=== PATIENT | male | born 1945 | race Caucasian/White ===

== ENCOUNTER 2020-02-08 15:42 | Outpatient (CLI) | payer OTHER, SELFPAY ==
--- NOTE | 2020-02-08 16:29 | USCV_ITS ---
Israel Shaw Age: 75 Gender: M : 1945 Exam Date: 02/08/2020 16:04 Ordering Phys: Cesar Urbina MD Technologist: Shannon Geiger [place] [facility] [place]: CHEST PAIN BP: / HR: 45 Rhythm: Sinus Technical Quality: Adequate MEASUREMENTS (Male / Female) Normal Values 2D ECHO LV Diastolic Diameter PLAX 4.7 cm 4.2 - 5.9 / 3.9 - 5.3 cm LV Systolic Diameter PLAX 4.7 cm LV Chamber Size 3.9 cm IVS Diastolic Thickness 1.2 cm 0.6 - 1.0 / 0.6 - 0.9 cm IVS Systolic Thickness 1.6 cm LVPW Diastolic Thickness 1.1 cm 0.6 - 1.0 / 0.6 - 0.9 cm LVPW Systolic Thickness 1.5 cm RV Chamber Size 3.3 cm LVOT Diameter 2.0 cm LV Ejection Fraction 2D Teich 10.9 % LV Ejection Fraction MOD 2C 50.4 % LV Ejection Fraction 2C AL 54.9 % LA Diameter 5.5 cm LA Width 4.1 cm LA Height 5.9 cm RA Width 3.9 cm RA Height 4.7 cm Aorta at Sinotubular Diameter 3.1 cm M-MODE LV Diastolic Diameter MM 5.5 cm 4.2 - 5.9 / 3.9 - 5.3 cm LV Systolic Diameter MM 4.6 cm LV Ejection Fraction MM Teich 35.3 % IVS Diastolic Thickness MM 0.9 cm 0.6 - 1.0 / 0.6 - 0.9 cm IVS Systolic Thickness MM 1.3 cm LVPW Diastolic Thickness MM 1.3 cm 0.6 - 1.0 / 0.6 - 0.9 cm LVPW Systolic Thickness MM 1.9 cm RV Diastolic Diameter MM 1.3 cm Aortic Annulus Diameter 3.2 cm LA Ao Ratio MM 1.6 MV E Point Septal Separation 2.4 cm DOPPLER AV Peak Velocity 146.0 cm/s LVOT Peak Velocity 74.0 cm/s AV Area Cont Eq vti 2.0 cm squared AV Area Cont Eq pk 1.7 cm squared MV Area PHT 7.1 cm squared Mitral E to A Ratio 1.8 MV E' Velocity 47.0 cm/s Mitral E to MV E' Ratio 11.1 Mitral E to LV E' Lateral Ratio 10.6 Mitral E to LV E' Septal Ratio 11.7 TR Peak Velocity 243.6 cm/s TR Peak Gradient 23.7 mmHg TR Mean Velocity 173.5 cm/s TR Mean Gradient 14.9 mmHg TR Velocity Time Integral 57.6 cm TV Peak E Velocity 91.0 cm/s Right Atrial Pressure 3.0 mmHg Pulmonary Artery Systolic Pressu 26.7 mmHg PV Peak Velocity 54.0 cm/s RV Acceleration Time 0.1 s RV Ejection Time 0.3 s RV AcT/ET 0.2 FINDINGS Left Ventricle Diffuse hypokinesia left ventricle ejection fraction of around 35%. LV cavity appears to be mildly dilated. Right Ventricle Normal right ventricular size and systolic function. Right Atrium The right atrium is normal in size. Left Atrium Moderately increased left atrial size. Mitral Valve Possibly severe eccentric mitral regurgitation, with a regurgitant jet encircling the left atrium. Moderate prolapse of the anterior mitral leaflet Aortic Valve Structurally normal aortic valve without significant sclerosis or stenosis. There is no aortic regurgitation. Tricuspid Valve Trace tricuspid valve regurgitation. Pulmonic Valve Pulmonic valve not well visualized. Pericardium Normal pericardium without effusion. Aorta Normal ascending aorta dimension. CONCLUSIONS Diffuse hypokinesia left ventricle ejection fraction of around 35%. LV cavity appears to be mildly dilated. Possibly severe eccentric mitral regurgitation, with a regurgitant jet encircling the left atrium. Moderate prolapse of the anterior mitral leaflet. Moderately dilated left atrium Trace tricuspid valve regurgitation. There is no pericardial effusion. There are no intracardiac masses. No previous study is available for comparison. Dr Cesar Urbina MD FAC (Electronically Signed) Final Date: 08 February 2020 21:21 S
== END 2020-02-08 15:43 | disposition home or self-care (01) ==
PROVIDERS: PCP Emergency Medicine Emergency Medical Services; Visit Provider Internal Medicine Cardiovascular Disease
DX: I25.5 Ischemic cardiomyopathy (principal); R07.89 Other chest pain; I08.1 Rheumatic disorders of both mitral and tricuspid valves
CPT/HCPCS: 93306

== ENCOUNTER 2020-03-17 06:38 | Day surgery (SDC) | payer OTHER, SELFPAY ==
--- NOTE | 2020-03-17 07:10 | USCV_ITS ---
Israel Shaw Age: 75 Gender: M : 1945 Exam Date: 03/17/2020 09:33 Ordering Phys: Cesar Urbina MD ([email or web address]) Technologist: Shannon Geiger [place] [facility] [place]: MR BP: 142 / 84 HR: 94 Rhythm: Sinus Technical Quality: Excellent MEASUREMENTS (Male / Female) Normal Values 2D ECHO LVOT Diameter 2.0 cm DOPPLER LVOT Peak Velocity 89.0 cm/s MV Peak Velocity 101.0 cm/s MV Area PHT 5.1 cm squared Mitral E to A Ratio 3.2 MV E' Velocity 101.0 cm/s Medications IV propofol by the anesthesia service Complications None Proc. Components The patient was brought to the VALERIE examination room in a fasting state after obtaining an informed consent. The VALERIE probe was passed into the posterior pharynx , mid-esophagus, distal esophagus, and gastric fundus. The patient tolerated the procedure well and there were no complications. FINDINGS Left Ventricle The left ventricle appears to be mildly dilated. Moderate diffuse hypokinesia of the left ventricle. Right Ventricle Normal right ventricular size and systolic function. Right Atrium No right atrial mass or thrombus visualized. Normal right atrial size. Left Atrium Moderately increased left atrial size. No left atrial mass or thrombus visualized. The pulmonary vein Doppler examination revealed blunting of the systolic flow with some reversal of flow in the LV diastole LA Appendage Appears of normal size and contractility. No intracavitary masses or thrombi noted. IA Septum Appears to be intact. There is no evidence of any patent foramen ovale, based on the color flow Doppler examination or by saline contrast injection Mitral Valve Moderate prolapse of the P2 scallop was noted. Severe mitral regurgitation was noted with a slightly eccentric jet. There was reversal of flow noted in the pulmonic vein The stroke-volume at the level of the mitral valve was 144 mL. Stroke-volume at the level of the LV outflow tract was 43.6 mL. The regurgitant volume was 100 mL Aortic Valve Trileaflet aortic valve with a trace of aortic regurgitation Tricuspid Valve Trace of tricuspid regurgitation Pulmonic Valve No gross abnormality noted . Pericardium No pericardial effusion Aorta Aortic root was of normal size. Mild diffuse plaques are noted in the ascending, arch and descending aorta CONCLUSIONS 1. Features of severe mitral regurgitation with moderate prolapse of the P2 scallop. Mitral annular dilatation. Mitral regurgitant volume of 100 mL 2. Diffuse hypokinesia of the left ventricular ejection fraction around 35-40%. Mildly dilated LV cavity. No intracavitary masses. 3. Moderately dilated left atrium measuring 5.7 x 6.7 cm 4. Trace of aortic and tricuspid regurgitation. 5. No intracardiac masses. 6. No intracardiac shunts. Dr Cesar Urbina MD FAC (Electronically Signed) Final Date: 18 March 2020 11:49 S
[2020-03-17 07:25] VITALS: BP 142/84; PULSE 91; RESP 18; TEMP 36.1; O2SAT 95
[2020-03-17] MEDS: sodium chloride 0.9% 1,000 ML 30 ML IV (08:14)
--- NOTE | 2020-03-17 08:26 | P.ANESASSM_ITS ---
Pre-Anesthetic Assessment Pre-Anesthetic Assessment: Height/Weight: Height 1.78 m Weight 90.718 kg Temp Pulse Resp BP Pulse Ox 97 F L 91 18 142/84 95 03/17/20 07:25 03/17/20 07:25 03/17/20 07:25 03/17/20 07:25 03/17/20 07:25 Proposed Procedure: Operation Date: 03/17/20 08:00 Proposed Procedures p VALERIE 54775 I25.5 I25.10 Z86.79 I35.0(Not Applicable) - Cesar Urbina MD Was Beta Bryson taken within 24 hours: Yes Last intake: Intake Last Liquid Date 03/16/20 Last Liquid Time 05:00 Last Solid Date 03/16/20 Last Solid Time 21:00 Social: Social History: No alcohol and No tobacco Exam: Pre-Anes Outpt Exam: alert, oriented x 3 and clear to auscultation bilaterally Additional Exam Findings (including area of procedure): irregular Airway: Submandibular: WNL Cervical ROM: WNL MP: 2 Dentition: False Pulmonary: Pulmonary: None reported CV/HEM: CV/HEM: Angina (Stable), CAD and CHF Comments: EF 35%, severe MR : : None reported Hepatic: Hepatic: None reported GI: GI: None reported Metabolic: Metabolic: None reported Musc/skel: Musc/skel: None reported Neuropsych: Neuropsych: None reported Anesthetic Plan: ASA status: 3 Anesthesia: MAC Risk of > 500 ml blood loss (7ml/kg in children): No Meds/Allergies Current Medications: Current Medications Generic Name Dose Route Start Last Admin Trade Name Freq PRN Reason Stop Dose Admin Sodium Chloride 1,000 mls @ 30 ml s/hr 03/17/20 08:00 03/17/20 08:14 Sodium Chloride 0.9% IV 03/18/20 07:59 30 mls/hr .Q24H LIZZ Administration PFSH Anesthesia PFSH: Medical History Atherosclerotic heart disease of [place] coronary artery without angina pectoris History of hypertension History of hypothyroidism Hx of chest pain Hx of congestive heart failure Hx of coronary atherosclerosis Hx of heart failure Hx of hyperlipidemia Ischemic cardiomyopathy An EKG was done today which revealed a sinus rhythm with recurrent PVCs. Possible left atrial enlargement. Poor R wave progression. Some nonspecific T wave changes in the high lateral leads. Data Anesthesia Cardiac Studies: No Data to Display
--- NOTE | 2020-03-17 08:46 | P.HP_ITS ---
Providers/Chief Complaint Admitting Physician: Dr. JANE Urbina Primary Care Provider: Hari Cuellar DO Chief Complaint: karina History of Present Illness Israel Shaw is a 75 year old male who is known to have coronary artery disease and had coronary artery bypass surgery. He presents with increasing shortness of breath. He had an echocardiogram done which revealed possibly s evere mitral regurgitation. The study was a suboptimal quality. To better evaluate the mitral valve and the regurgitation, a transesophageal echocardiogram was recommended. This patient also has a history of congestive heart failure, essential benign hypertension, hypothyroidism and dyslipidemia Review of Systems Narrative: CONSTITUTIONAL: No fever or chills. EYES: No blurring of vision or other visual disturbances lately. ENT: No hoarseness of voice, auditory disturbances or sore throat. CARDIOVASCULAR: Exertional dyspnea RESPIRATORY: No significant cough. GASTROINTESTINAL: No hematemesis or melena. GENITOURINARY: No dysuria or hematuria. INTEGUMENTARY: No skin rashes or history of skin cancer. NEURO: No transient ischemic attacks or amaurosis. PSYCHIATRIC: No history of psychosis or major depression. HEMATOLOGIC: No bleeding disorders or significant anemia. ENDOCRINE: Hypothyroidism as mentioned above MUSCULOSKELETAL: No recent joint pain or swelling. ALLERGY/IMMUNOLOGY: As mentioned above. Medications/Allergies Home Medications Medication Instructions Recorded Confirmed Last Taken Type acetaminophen 500 mg tablet 500 mg PO Q6H PRN 02/08/20 03/17/20 03/16/20 History carvedilol 6.25 mg tablet 6.25 mg PO BID 02/08/20 03/17/20 03/16/20 History clopidogrel 75 mg tablet 75 mg PO DAILY 02/08/20 03/17/20 03/16/20 History cyclobenzaprine 10 mg tablet 10 mg PO TID 02/08/20 03/17/20 03/16/20 History ezetimibe 10 mg tablet 10 mg PO DAILY 90 Days #90 tab 02/08/20 03/17/20 03/16/20 Rx gabapentin 100 mg capsule 100 mg PO TID 02/08/20 03/17/20 03/16/20 History hydroxyzine HCl 10 mg tablet 10 mg PO TID PRN 02/08/20 03/17/20 03/16/20 History levothyroxine 75 mcg tablet 75 mcg PO DAILY 02/08/20 03/17/20 03/16/20 History melatonin 3 mg capsule 3 mg PO DAILY 02/08/20 03/17/20 03/16/20 History naproxen sodium 220 mg capsule 220 mg PO BID PRN 02/08/20 03/17/20 03/16/20 History rosuvastatin 40 mg tablet 40 mg PO DAILY 02/08/20 03/17/20 03/16/20 History sacubitril 49 mg-valsartan 51 mg 1 tab PO BID 30 Days #60 tab 02/08/20 03/17/20 03/16/20 Rx tablet nitroglycerin 0.4 mg sublingual 0.4 mg SUBLINGUAL Q5M PRN #50 tab 02/09/20 03/17/20 Unknown Rx tablet Allergies Allergy/AdvReac Type Severity Reaction Status Date / Time No Known Allergies Allergy Verified 02/08/20 14:14 PFSH Acute PFSH: Medical History Atherosclerotic heart disease of [place] coronary artery without angina pectoris History of hypertension History of hypothyroidism Hx of chest pain Hx of congestive heart failure Hx of coronary atherosclerosis Hx of heart failure Hx of hyperlipidemia Ischemic cardiomyopathy An EKG was done today which revealed a sinus rhythm with recurrent PVCs. Possible left atrial enlargement. Poor R wave progression. Some nonspecific T wave changes in the high lateral leads. Vitals/I&O/Wt Last Vital Signs Temp 97 F L 03/17/20 07:25 Pulse 91 03/17/20 07:25 Resp 18 03/17/20 07:25 BP 142/84 03/17/20 07:25 Pulse Ox 95 03/17/20 07:25 Weight last 48 hrs Weight 200 lb Physical Exam Narrative: EXAM NARRATIVE: GENERAL: The patient is alert and oriented times three. Not in any acute distress. HEENT: No significant pallor, icterus or lymphadenopathy.Oral cavity: There are no mucous membrane lesions. NECK: Trachea appears to be central. No masses noted. No JVD or thyromegaly appreciated. RESPIRATORY: Chest is symmetrical. No intercostals muscle retraction or any accessory muscle activation. There is no chest wall tenderness. Breath sounds are heard bilaterally. No rales or rhonchi heard. No evidence of any consolidation. BREASTS: Deferred. HEART: The heart sounds are normal. No S3 or S4. Systolic murmur in the mitral area of grade 3/6.. No pericardial rub ABDOMEN: No vessel pulsations or distention. No tenderness. No organomegaly appreciated. Bowel sounds are normally heard. : Deferred. RECTAL: Deferred. LYMPHATIC: No lymphadenopathy noted in the neck or groin. EXTREMITIES: Trace edema with no cyanosis MUSCULOSKELETAL: No acute joint deformities or swelling SKIN: There are no significant rashes or ecchymosis NEUROPSYCHIATRIC: The patient is alert and oriented x3. Appears to be in a good mood. No tremors or rigidity noted. Data Other Labs: Echocardiogram done on 02/08/2020 Diffuse hypokinesia left ventricle ejection fraction of around 35%. LV cavity appears to be mildly dilated. Possibly severe eccentric mitral regurgitation, with a regurgitant jet encircling the left atrium. Moderate prolapse of the anterior mitral leaflet. Moderately dilated left atrium Trace tricuspid valve regurgitation. There is no pericardial effusion. There are no intracardiac masses. No previous study is available for comparison. A&P Assessment and plan (1) Mitral regurgitation: Patient was found to have possibly severe mitral regurgitation by transthoracic echocardiogram. To better evaluate the mitral valve pathology and the mitral regurgitation, a transesophageal echocardiogram was recommended. The risk of aspiration, bleeding, soft tissue injury, perforation of the stomach/esophagus and other concomitant complications were explained to the patient in detail. The patient understood this well and consented to proceed. Status: Acute Qualifiers: Cardiac valve disease etiology: nonrheumatic Qualified Code(s): I34.0 - Nonrheumatic mitral (valve) insufficiency (2) Ischemic cardiomyopathy: Since the patient has no evidence of any cardiac decompensation, may continue on the current medications. Status: Acute (3) Atherosclerotic heart disease of [place] coronary artery without angina pectoris: Patient has no specific symptoms of coronary ischemia at this time. Overall status is stable. Status: Acute Qualifiers: [place] vs. transplanted heart: [place] heart Qualified Code(s): I25.10 - Atherosclerotic heart disease of [place] coronary artery without angina pectoris (4) Hx of congestive heart failure: Currently he has a class II heart failure symptoms. No evidence of decompensation. Status: Acute Additional A&P Information Based on the KARINA findings, further recommendations will be made. 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 transplanted heart: [place] heart Hx of congestive heart failure Z86.79
--- NOTE | 2020-03-17 09:29 | W.PM.OPSUD ---
Surgery/Procedure H&P Update DATE OF PROCEDURE: March 17, 2020 DATE H&P PERFORMED: 03/17/20 H&P UPDATE INFORMATION: I have reviewed H&P completed within last 30 days and I have examined patient prior to procedure PREOP DIAGNOSIS: Possibly severe mitral regurgitation/ASHD/cardiomyopathy PRIMARY INDICATION FOR PROCEDURE: Mitral valve regurgitation PLANNED PROCEDURE: Operation Date: 03/17/20 08:00 Proposed Procedures p VALERIE 24511 I25.5 I25.10 Z86.79 I35.0(Not Applicable) - Cesar Urbina MD
[2020-03-17 10:21] VITALS: BP 120/78; PULSE 95; RESP 18; TEMP 36.4; O2SAT 97
[2020-03-17 10:37] VITALS: BP 144/82; PULSE 89; RESP 16; O2SAT 95
--- NOTE | 2020-03-17 12:46 | ANE.PACU2 ---
Inpatient post-anesthesia follow up: Airway intact: Yes Vital signs: Temperature 97.6 F Pulse Rate 89 Respiratory Rate 16 Blood Pressure 144/82 Pulse Oximetry 95 Oxygen Delivery Me thod Room Air Oxygen Flow Rate Fraction of Inspir ed Oxygen Hydration adequate: Yes Nausea and vomiting: No Pain level: 1 Mental status: Baseline
== END 2020-03-17 10:49 | disposition home or self-care (01) ==
PROVIDERS: PCP Emergency Medicine Emergency Medical Services; Visit Provider Internal Medicine Cardiovascular Disease
PROC: (CPT 93312; principal; 2020-03-17 08:00)
DX: I34.0 Nonrheumatic mitral (valve) insufficiency (principal); I25.5 Ischemic cardiomyopathy; I25.10 Atherosclerotic heart disease of native coronary artery without angina pectoris; Z86.79 Personal history of other diseases of the circulatory system; Z95.1 Presence of aortocoronary bypass graft; E03.9 Hypothyroidism, unspecified; I10 Essential (primary) hypertension; E78.5 Hyperlipidemia, unspecified
CPT/HCPCS: 12345; 93312; 93320; 93325; J7030

== ENCOUNTER 2020-04-26 07:52 | Outpatient (CLI) | payer OTHER, SELFPAY ==
--- NOTE | 2020-04-26 07:58 | NMCV_ITS ---
NM card bld pool r or s*[id number] Israel Shaw Age: 75 Gender: M : 1945 Exam Date: 04/26/2020 07:58 Ordering Phys: Cesar Urbina MD ([email or web address]) Technologist: LEXI Moreno Exam Location: [facility] Indications: ISCHEMIC CARDIOMYOPATHY Camera Used: [employer] Imaging Protocol: three view gated blood pool study Technical Image Quality: Good Dose: Admin Site: Administered By: Tc-99m Tagged RBCs: 24.7 IV - Right LEXI Moreno Antecubital PYP: EJECTION FRACTION: Automatic LV EF: 46 Rest RV EF: Manual LV EF: FINDINGS Diffuse hypokinesia of the LV apex and the septum CONCLUSIONS 1. LV ejection fraction estimated to be 46% 2. Segmental wall motion analysis revealed diffuse hypokinesia of the LV apex and septum. No previous studies are available for comparison Dr Cesar Urbina MD FAC (Electronically Signed) Final Date: 26 April 2020 10:43 S
== END 2020-04-26 07:53 | disposition home or self-care (01) ==
LOC: NM 07:53
PROVIDERS: PCP Emergency Medicine Emergency Medical Services; Visit Provider Internal Medicine Cardiovascular Disease
DX: I25.5 Ischemic cardiomyopathy (principal)
CPT/HCPCS: 78472; A9560

== ENCOUNTER 2020-06-05 06:58 | Outpatient (CLI) | payer OTHER, SELFPAY ==
--- NOTE | 2020-06-05 06:59 | NMCV_ITS ---
NM rosana perf SPECT r/s* [id number] Israel Shaw Age: 75 Gender: M : 1945 Exam Date: 06/05/2020 08:10 Ordering Phys: Cesar Urbina MD ([email or web address]) Technologist: LEXI Moreno Exam Location: [facility] Indications: ISCHEMIC CARDIOMYOPATHY STRESS TEST Please see separate stress test report in [facility] for full findings IMAGE PROTOCOL Rest/Stress 1 Lexiscan Day Radiopharmaceutical Dose (mCi) Administration Site Administered by Rest: Tc-99m 10.8 IV LEXI Archuleta Sestamibi Stress:Tc-99m 32.6 IV LEXI Archuleta Sestamibi Rest: 05-Jun-2020 60 Discovery 630 Stress: 05-Jun-2020 30 Discovery 630 0.4mg Lexiscan. Images obtained in supine and prone position. SPECT RESULTS Technical Quality: Excellent Raw Data Analysis: Normal Image Corrections: No attenuation or motion correction applied Summed Stress Score: 21 Summed Rest Score: 17 Summed Difference Score: 6 PERFUSION FINDINGS Large areas of severely decreases uptake in the inferior, inferolateral, anterolateral and apical regions. Some reversibility was noted in the anterolateral, apical anterior, apical lateral and LV apex. FUNCTIONAL RESULTS (calculated via Gated SPECT) Stress Image LV EF (%): 39 Stress EDV (mL):212 TID: 1.14 Stress ESV (mL):130 FUNCTIONAL FINDINGS: Segmental wall motion analysis revealed diffuse hypokinesia of the left ventricle. IMPRESSIONS 1. Myocardial perfusion imaging revealing large areas of persistent decreased tracer uptake in the inferior, inferolateral, anterolateral and apical regions with some reversibility in the anterolateral and apical regions, suggestive of myocardial scarring in the distribution of all the 3 coronary arteries with some abelino-infarction ischemia mostly in the distribution of the left circumflex artery. 2. Diminished LV ejection fraction 39%. 3. Wall motion abnormalities mentioned above. 4. Dilated LV cavity with an end-systolic volume of 130 mL 5. Elevated transient ischemic dilatation ratio may suggest endocardial ischemia( TID of 1.14) No similar previous studies are available for comparison Dr Cesar Urbina MD FACC (Electronically Signed) Final Date: 05 June 2020 15:19 S
--- NOTE | 2020-06-05 06:59 | ECG_ITS ---
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 Interpretive Statements NAME OF STUDY: LEXISCAN SESTAMIBI STRESS TEST INDICATION: Shortness of Breath, PROCEDURE: At the baseline, the EKG revealed normal sinus rhythm with frequent PVCs in the form of bigeminy. Borderline first-degree AV block. Poor R wave progression. Nonspecific T wave changes in the inferolateral leads. The baseline blood pressure was 149/87 mm Hg with a heart rate of 83 beats/min. Lexiscan was infused over a period of 20 seconds. A total of 0.4 milligrams of Lexiscan was infused. The stress phase was continued for a total of 5 minutes. Heart rate at the end of the stress phase was 88 with a blood pressure 125/70. The EKG at the peak infusion revealed no significant changes. Sestamibi was injected 20 seconds after the Lexiscan infusion. Blood pressure at the end of the recovery phase was 129/82 with a heart rate of 88 per minute. CONCLUSION: 1. No significant EKG changes with the LexiScan infusion 2. No LexiScan induced chest pain or cardiac arrhythmia 3. Normal blood pressure and heart rate response 4. Sestamibi/sestamibi perfusion scan pending; see separate report. Electronically Signed On 06-08-2020 8:25:58 CDT by Cesar Urbina M.D. [id number]
[2020-06-05 07:09] VITALS: BMI 29.7
[2020-06-05] MEDS: regadenoson 0.4 Mg/5 ml Syringe IVP (09:17)
[2020-06-05 09:42] VITALS: BP 129/82; PULSE 88
== END 2020-06-05 06:59 | disposition home or self-care (01) ==
LOC: CDL 06:58
PROVIDERS: PCP Emergency Medicine Emergency Medical Services; Visit Provider Internal Medicine Cardiovascular Disease
DX: R06.02 Shortness of breath (principal); I25.5 Ischemic cardiomyopathy
CPT/HCPCS: 78452; 93017; A9500; J2785

== ENCOUNTER 2020-10-26 16:27 | Outpatient (CLI) | payer OTHER, SELFPAY ==
[2020-10-26 16:57] LABS: Basophils % 0.3 %; Eosinophils # 0.1 10^3/uL (0.0-0.8); Eosinophils % 0.9 %; Hematocrit 48.9 % (42.0-52.0); Hemoglobin 16.7 g/dL (11.7-16.6); Lymphocytes # 1.5 10^3/uL (0.8-4.8); Lymphocytes % 22.6 %; Mean Corpuscular HGB Conc 34.2 g/dL (30.0-36.0); Mean Corpuscular Hemoglobin 31.3 pg (28.0-34.0); Mean Corpuscular Volume 91.6 fl (80-94); Mean Platelet Volume 8.8 fL (7.4-10.4); Monocytes # 0.7 10^3/uL (0.2-0.9); Neutrophils # 4.48 10^3/uL (1.8-7.7); Neutrophils % 65.9 %; Nucleated Red Blood Cells % 0 %; Platelet Count 231 10^3/cmm (130-400); Red Blood Count 5.34 10^6/uL (4.1-5.3); Red Cell Distribution Width 12.6 % (12.1-15.1); White Blood Count 6.8 10^3/uL (4.0-10.0)
[2020-10-26 17:20] LABS: Alanine Aminotransferase 30 U/L (0-41); Albumin Level 4.4 g/dL (3.5-5.2); Alkaline Phosphatase 83 IU/L (40-130); Anion Gap 15.2 (5-19); Aspartate Amino Transferase 20 U/L (0-40); Blood Urea Nitrogen 10 mg/dL (8-23); Calcium 9.4 mg/dL (8.5-10.5); Carbon Dioxide 25 mmol/L (22-29); Chloride 102 mmol/L (98-107); Globulin 3.3 g/dL (1.3-4.6); Glucose 92 mg/dL (65-115); Osmolality Calculated 285 mOsm/kg (285-295); Potassium 4.2 mmol/L (3.5-5.1); Sodium 138 mmol/L (136-145); Total Bilirubin 0.5 mg/dL (0.15-1.2); Total Protein 7.7 g/dL (6.6-8.7)
[2020-10-26 17:45] LABS: Hepatitis A Antibody IgM Non-Reactive (Nonreactive); Hepatitis B Core AB, Total Reactive (Nonreactive); Hepatitis B Surface AB 3.5 (11.5-1000); Hepatitis B Surface Antigen Non-Reactive (Nonreactive); Hepatitis C Virus Antibody Non-Reactive (Nonreactive)
[2020-10-26 20:19] LABS: HIV 1 & 2 Antibody Non-Reactive (Non-Reactiv); HIV 1 & 2 Antigen Non-Reactive (Non-Reactiv)
[2020-10-28 15:38] LABS: Quantiferon Mitogen 7.85 IU/mL; Quantiferon Nil 0.01 IU/mL; Quantiferon Plus TB1 0.01 IU/mL; Quantiferon Plus TB2 0.01 IU/mL; Quantiferon TB Gold NEGATIVE (NEGATIVE)
== END 2020-10-26 16:28 | disposition home or self-care (01) ==
LOC: LAB 16:32
PROVIDERS: PCP Emergency Medicine Emergency Medical Services; Visit Provider Dermatology
DX: L40.0 Psoriasis vulgaris (principal); L40.50 Arthropathic psoriasis, unspecified
CPT/HCPCS: 36415; 80053; 85025; 86480; 86705; 86706; 86709; 86803; 87340; 87806

== ENCOUNTER → 2020-12-20 10:43 | Outpatient (BNVA) | payer OTHER, SELFPAY | PROVIDERS: PCP Emergency Medicine Emergency Medical Services; Visit Provider Internal Medicine Cardiovascular Disease | DX: I50.33 Acute on chronic diastolic (congestive) heart failure (principal); Z86.79 Personal history of other diseases of the circulatory system; E78.5 Hyperlipidemia, unspecified; R06.02 Shortness of breath | CPT/HCPCS: 80048; 80061; 83880 ==

== ENCOUNTER 2021-03-07 05:58 | Observation (INO) | payer OTHER, MEDICARE, SELFPAY ==
[2021-03-07] VITALS (13 sets, daily range): BP systolic 103–144; BP diastolic 60–67; PULSE 62–110; RESP 17–28; TEMP 36.6–37.5; O2SAT 91–98; BMI 30.1; BMI 30.4
--- NOTE | 2021-03-07 06:37 | XRR_ITS ---
PROCEDURE INFORMATION: Exam: XR Chest Exam date and time: 03/07/2021 6:37 AM Age: 76 years old Clinical indication: Dyspnea; Prior surgery; Surgery date: 6+ months; Surgery type: Open heart x 2; Patient HX: SOB chest pain this am; Additional info: Cp TECHNIQUE: Imaging protocol: XR of the chest. Views: 1 view. COMPARISON: No relevant prior studies available. FINDINGS: Lungs: Emphysematous change, interstitial prominence, and left basilar airspace disease. Pleural spaces: No significant pleural effusion. Heart/Mediastinum: No cardiomegaly. Bones/joints: Degenerative change. Median sternotomy. XR/XR chest 1V portable [id number] IMPRESSION: Emphysematous change, interstitial prominence, and left basilar airspace disease.
--- NOTE | 2021-03-07 06:37 | ECG_ITS ---
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 Measurements Intervals [place] Rate: 100 P: 57 AK: 251 QRS: -15 QRSD: 110 T: 124 QT: 329 QTc: 424 Interpretive Statements SINUS TACHYCARDIA WITH FIRST DEGREE AV BLOCK WITH OCCASIONAL VENTRICULAR PREMATURE COMPLEXES ANTEROSEPTAL MYOCARDIAL INFARCTION , OF INDETERMINATE AGE [40+ ms Q WAVE IN V1-V4] No previous ECG available for comparison Electronically Signed On 03-08-2021 20:37:22 TUBING TESTER by Irasema Rosales M.D. [id number]
--- NOTE | 2021-03-07 06:42 | ED_ITS ---
HPI - Chest Pain General: Chief Complaint: Chest Pain Stated Complaint: Chest pains Time Seen by Provider: 03/07/21 06:35 History of Present Illness: HPI narrative: 76-year-old male with history of CAD presents with chest pain. States this started approximately 2:30 AM. States this feels similar to previous MIs. He has had previous stents in the past due to similar symptoms. Describes it as pressure does not radiate. Is not exertional or pleuritic. Denies lower extremity pain or swelling. Denies cough nausea or vomiting. Denies fevers or chills. States that he recently had an unremarkable stress test. States she took 3 nitroglycerin at home which relieved the pain but it promptly came back. Review of Systems Narrative: - CONSTITUTIONAL: Denies weight loss, fever and chills. - HEENT: Denies changes in vision and hearing. - RESPIRATORY: Endorses shortness of breath - CV: As above - GI: Denies abdominal pain, nausea, vomiting and diarrhea. - : Denies dysuria and urinary frequency. - MSK: Denies myalgia and joint pain. - SKIN: Denies rash and pruritus. - NEUROLOGICAL: Denies headache, weakness, numbness and syncope. - PSYCHIATRIC: Denies suicidal ideation PFSH ED PFSH: Medical History Atherosclerotic heart disease of [place] coronary artery without angina pectoris History of hypertension History of hypothyroidism Hx of chest pain Hx of congestive heart failure Hx of coronary atherosclerosis Hx of heart failure Hx of hyperlipidemia Ischemic cardiomyopathy An EKG was done today which revealed a sinus rhythm with recurrent PVCs. Possible left atrial enlargement. Poor R wave progression. Some nonspecific T wave changes in the high lateral leads. Psoriasis Surgical History History of open heart surgery Hx of appendectomy Family History Father CAD (coronary artery disease) Mother CAD (coronary artery disease) Grandmother CAD (coronary artery disease) Family/Other CAD (coronary artery disease) Brother CAD (coronary artery disease) Sister CAD (coronary artery disease) Denies family history of Diabetes Clotting disorder Dementia Chronic kidney disease (CKD) Suicide Anesthesia complication Bleeding disorder Lung disease Cancer Stroke Social History (Updated 03/07/21 @ 15:41 by Rohan Joseph MD) Smoking and tobacco status: former smoker Alcohol intake: former Physical Exam Narrative: EXAM NARRATIVE: - GENERAL: Alert and oriented x 3. No acute distress. Well-nourished. - EYES: EOMI. Anicteric. - HENT: Atraumatic, no C-spine tenderness. Moist mucous membranes. No scleral icterus. No cervical lymphadenopathy. - LUNGS: Clear to auscultation bilaterally. No accessory muscle use. Equal lung sounds bilaterally. No respiratory distress. - CARDIOVASCULAR: Regular rate and rhythm. No murmur. No JVD. - ABDOMEN: Soft, non-tender and non-distended. Negative CVA tenderness bilaterally, no rebound or guarding, negative Perez sign. No palpable masses. - EXTREMITIES: No edema. Non-tender. - SKIN: No rashes or lesions. Warm. - NEUROLOGIC: No meningismus or focal neurological deficits. CN II-XII grossly intact. - PSYCHIATRIC: Cooperative. Appropriate mood and affect. Course Vital Signs: Vital signs: Vital Signs Temperature 99.5 F 03/07/21 06:12 Pulse Rate 91 03/07/21 15:40 Respiratory Rate 18 03/07/21 15:40 Blood Pressure 135/66 03/07/21 15:40 Pulse Oximetry 98 03/07/21 15:40 MDM - Chest Pain MDM Narrative: Medical decision making narrative: 76-year-old male presents due to chest pain. EKG and troponins do not reveal any sign of acute ischemia or acute abnormality. CT scan does not reveal any sign of PE. However does have some consolidation and treatment with azithromycin Rocephin started. Otherwise he is hemodynamically stable afebrile nontoxic-appearing. Remainder of lab can unremarkable. Remainder of lab work and imaging reviewed. Discussed with hospitalist and they agreed patient would benefit from admission. Patient admitted in stable condition. Further evaluation management per hospitalist team. Lab Data: Labs: Lab Results 03/07/21 03/07/21 03/07/21 06:45 06:45 06:45 WBC 10.7 10^3/uL H 10 ^3/uL (4.0-10.0) RBC 4.86 10^6/uL 10^6 /uL (4.1-5.3) Hgb 15.4 g/dL g/dL (11.7-16.6) Hct 44.8 % % (42.0-52.0) MCV 92.2 fl fl (80-94) MCH 31.7 pg pg (28.0-34.0) MCHC 34.4 g/dL g/dL (30.0-36.0) RDW 12.2 % % (12.1-15.1) Plt Count 200 10^3/cmm 10^3 /cmm (130-400) MPV 9.0 fL fL (7.4-10.4) Neut % (Auto) 89.1 % % Lymph % (Auto) 4.1 % % [place] % (Auto) 5.7 % % Eos % (Auto) 0.2 % % Baso % (Auto) 0.3 % % Neut # (Auto) 9.53 10^3/uL H 10 ^3/uL (1.8-7.7) Lymph # (Auto) 0.4 10^3/uL L 10^ 3/uL (0.8-4.8) [place] # (Auto) 0.6 10^3/uL 10^3/ uL (0.2-0.9) Eos # (Auto) 0.0 10^3/uL 10^3/ uL (0.0-0.8) Baso # (Auto) 0.0 10^3/uL 10^3/ uL (0.0-0.1) Nucleated RBC % (a uto) 0 % % Nucleated RBCs # 0.0 /100WBC /100W BC PT 13.70 SECONDS SEC ONDS (12.1-14.9) INR 1.01 (0.8-1.2) APTT 24.1 SECONDS SECO NDS (23.9-36.7) D-Dimer 0.80 ug/mIFEU H u g/mIFEU (0-0.59) Sodium Cancelled Potassium Cancelled Chloride Cancelled Carbon Dioxide Cancelled Anion Gap Cancelled BUN Cancelled Creatinine Cancelled GFR Calculation Cancelled Glucose Cancelled Calculated Osmolal ity Cancelled Lactate Calcium Cancelled Total Bilirubin Cancelled AST Cancelled ALT Cancelled Alkaline Phosphata se Cancelled Troponin T Baselin e Troponin T 120 Min robinson Delta Troponin T Troponin T Hi Sens 6Hr Troponin T Hi Sens 6Hr Delta NT-Pro-B Natriuret Pep Cancelled Total Protein Cancelled Albumin Cancelled Globulin Cancelled Lipase Cancelled 03/07/21 03/07/21 03/07/21 06:45 07:35 07:35 WBC RBC Hgb Hct MCV MCH MCHC RDW Plt Count MPV Neut % (Auto) Lymph % (Auto) [place] % (Auto) Eos % (Auto) Baso % (Auto) Neut # (Auto) Lymph # (Auto) [place] # (Auto) Eos # (Auto) Baso # (Auto) Nucleated RBC % (a uto) Nucleated RBCs # PT INR APTT D-Dimer Sodium 136 mmol/L mmol/L (136-145) Potassium 4.5 mmol/L mmol/L (3.5-5.1) Chloride 102 mmol/L mmol/L (98-107) Carbon Dioxide 25 mmol/L mmol/L (22-29) Anion Gap 13.5 (5-19) BUN 12 mg/dL mg/dL (8-23) Creatinine 1.1 mg/dL mg/dL (0.7-1.2) GFR Calculation Not Reportable Glucose 114 mg/dL mg/dL (65-115) Calculated Osmolal ity 283 mOsm/kg L mOs m/kg (285-295) Lactate Calcium 9.7 mg/dL mg/dL (8.5-10.5) Total Bilirubin 0.6 mg/dL mg/dL (0.15-1.2) AST 22 U/L U/L (0-40) ALT 26 U/L U/L (0-41) Alkaline Phosphata se 63 IU/L IU/L (40-130) Troponin T Baselin e Cancelled 14 ng/L ng/L (0-15) Troponin T 120 Min robinson Delta Troponin T Troponin T Hi Sens 6Hr Troponin T Hi Sens 6Hr Delta NT-Pro-B Natriuret Pep 335 pg/mL H pg/mL (0-125) Total Protein 6.3 g/dL L g/dL (6.6-8.7) Albumin 4.2 g/dL g/dL (3.5-5.2) Globulin 2.1 g/dL g/dL (1.3-4.6) Lipase 16 U/L U/L (13-60) 03/07/21 03/07/21 03/07/21 08:42 12:47 13:22 WBC RBC Hgb Hct MCV MCH MCHC RDW Plt Count MPV Neut % (Auto) Lymph % (Auto) [place] % (Auto) Eos % (Auto) Baso % (Auto) Neut # (Auto) Lymph # (Auto) [place] # (Auto) Eos # (Auto) Baso # (Auto) Nucleated RBC % (a uto) Nucleated RBCs # PT INR APTT D-Dimer Sodium Potassium Chloride Carbon Dioxide Anion Gap BUN Creatinine GFR Calculation Glucose Calculated Osmolal ity Lactate 1.1 mmol/L mmol/L (0.5-2.2) Calcium Total Bilirubin AST ALT Alkaline Phosphata se Troponin T Baselin e Troponin T 120 Min robinson 13.41 ng/L ng/L (0-15) Delta Troponin T -0.59 ABS# L ABS# (0-10) Troponin T Hi Sens 6Hr 10.92 ng/L ng/L (0-15) Troponin T Hi Sens 6Hr Delta -3.08 ng/L L ng/L (0-12) NT-Pro-B Natriuret Pep Total Protein Albumin Globulin Lipase EKG Data^: EKG 1: Other EKG comments: Sinus tachycardia rate of 110, anterior Q waves are present. Inversion in 1 aVL. No sign of acute ischemia or other acute abnormality. Discharge Plan Discharge Prescriptions: No Action hydroxyzine HCl 10 mg tablet 10 mg PO TID PRN (Reason: Anxiety) RF: 0 acetaminophen [Tylenol Extra Strength] 500 mg tablet 1,000 mg PO QID PRN (Reason: Pain) RF: 0 carvedilol [Coreg] 6.25 mg tablet 6.25 mg PO BID RF: 0 clopidogrel [Plavix] 75 mg tablet 75 mg PO DAILY RF: 0 cyclobenzaprine 10 mg tablet 10 mg PO TID PRN (Reason: Muscle Spasm) RF: 0 gabapentin 100 mg capsule 100 mg PO TID RF: 0 melatonin 3 mg capsule 3 mg PO BEDTIME RF: 0 rosuvastatin 40 mg tablet 40 mg PO DAILY RF: 0 naproxen sodium [Aleve] 220 mg capsule 220 mg PO BID PRN (Reason: Pain) RF: 0 cholecalciferol (vitamin D3) [Vitamin D3] 50 mcg (2,000 unit) capsule 50 mcg PO QAM RF: 0 nitroglycerin [Nitrostat] 0.4 mg tablet, sublingual 0.4 mg sublingual Q5M PRN (Reason: chest pain) Qty: 50 RF: 2 Tremfya 100 mg/mL auto-injector 100 mg SUBCUT .q8 weeks Qty: 1 RF: 3 Entresto 97-103 mg tablet 1 tab PO BID Qty: 180 RF: 3 Aspir-81 81 mg Tablet,Delayed Release (Dr/Ec) 81 mg PO QAM RF: 0 Zetia 10 mg tablet 10 mg PO DAILY RF: 0 Coding Level of Care Code ED Nursing Program Manager for Karlosg Anurag
[2021-03-07] MEDS: aspirin 81 mg Chew Tablet 324 MG PO (06:59)
[2021-03-07 07:19] LABS: Basophils % 0.3 %; Eosinophils % 0.2 %; Hematocrit 44.8 % (42.0-52.0); Hemoglobin 15.4 g/dL (11.7-16.6); Lymphocytes # 0.4 10^3/uL (0.8-4.8); Lymphocytes % 4.1 %; Mean Corpuscular HGB Conc 34.4 g/dL (30.0-36.0); Mean Corpuscular Hemoglobin 31.7 pg (28.0-34.0); Mean Corpuscular Volume 92.2 fl (80-94); Monocytes # 0.6 10^3/uL (0.2-0.9); Monocytes % 5.7 %; Neutrophils # 9.53 10^3/uL (1.8-7.7); Neutrophils % 89.1 %; Nucleated Red Blood Cells % 0 %; Platelet Count 200 10^3/cmm (130-400); Red Blood Count 4.86 10^6/uL (4.1-5.3); Red Cell Distribution Width 12.2 % (12.1-15.1); White Blood Count 10.7 10^3/uL (4.0-10.0)
[2021-03-07 07:23] LABS: INR 1.01 (0.8-1.2)
[2021-03-07 07:24] LABS: Partial Thromboplastin Time 24.1 SECONDS (23.9-36.7)
[2021-03-07 08:08] LABS: Troponin(5th) Baseline 14 ng/L (0-15)
[2021-03-07 08:15] LABS: Alanine Aminotransferase 26 U/L (0-41); Albumin Level 4.2 g/dL (3.5-5.2); Alkaline Phosphatase 63 IU/L (40-130); Anion Gap 13.5 (5-19); Aspartate Amino Transferase 22 U/L (0-40); Blood Urea Nitrogen 12 mg/dL (8-23); Calcium 9.7 mg/dL (8.5-10.5); Carbon Dioxide 25 mmol/L (22-29); Chloride 102 mmol/L (98-107); Globulin 2.1 g/dL (1.3-4.6); Glucose 114 mg/dL (65-115); Lipase 16 U/L (13-60); NT Pro B Type Natriuretic Pept 335 pg/mL (0-125); Osmolality Calculated 283 mOsm/kg (285-295); Potassium 4.5 mmol/L (3.5-5.1); Sodium 136 mmol/L (136-145); Total Bilirubin 0.6 mg/dL (0.15-1.2); Total Protein 6.3 g/dL (6.6-8.7)
--- NOTE | 2021-03-07 08:37 | ECG_ITS ---
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 Measurements Intervals [place] Rate: 94 P: 52 [place]: 204 QRS: -10 QRSD: 101 T: 117 QT: 339 QTc: 425 Interpretive Statements SINUS RHYTHM WITH OCCASIONAL VENTRICULAR PREMATURE COMPLEXES ANTEROSEPTAL MYOCARDIAL INFARCTION , OF INDETERMINATE AGE [40+ ms Q WAVE IN V1-V4] Compared to ECG 03/07/2021 06:51:53 Sinus tachycardia no longer present First degree AV block no longer present Myocardial infarct finding still present Electronically Signed On 03-08-2021 22:05:22 SOFTWARE CONFIGURATION MANAGER by Irasema Rosales M.D. [id number]
--- NOTE | 2021-03-07 08:54 | PC.NURSE ---
PATIENT CHEST PAIN NOW 03/12. PROVIDER NOTIFIED. OKAYED TO NOT GIVE NITRO DRIP.
[2021-03-07 09:08] LABS: Troponin 5 2HR 13.41 ng/L (0-15)
[2021-03-07 09:14] LABS: Troponin 5 2HR Delta -0.59 ABS# (0-10)
--- NOTE | 2021-03-07 11:00 | CT_ITS ---
WS: [id number] CT CHEST ANGIOGRAPHY WITH REFORMATS HISTORY: pe TECHNIQUE: Contiguous axial images are obtained through the chest during arterial injection of intrav enous contrast. Images are reconstructed to evaluate the pulmonary arteries. MIP imaging also reviewe d. All CT scans at [facility] use at least one of these dose optimization techniques: automat ed exposure control; mA and/or kV adjustment per patient size (includes targeted exams where dose is matched to clinical indication); or iterative reconstruction. CONTRAST: Omnipaque 350; 68 mL IV. DLP: 603.66 mGy.cm COMPARISON: None available. Very good opacification of the pulmonary arteries. There are no filling defects or pulmonary emboli. Normal size pulmonary artery. Mild atherosclerosis thoracic aorta with no aneurysm or dissection. Shira or CABG. No RIGHT heart strain. There is mild enlargement of the LEFT heart chambers. No pericardial or pleural effusion. No mediastinal or hilar adenopathy. Very mild early pneumonitis in the LEFT lowe r lobe. Very mild haziness and groundglass attenuation with linear atelectasis at the LEFT lung base. Small hiatal hernia. Mild thoracic spondylosis. LEFT renal cyst, 2.[address]/CT angio chest PE protcl [id number] IMPRESSION: 1. No pulmonary emboli. 2. LEFT lower lobe pneumonitis. 3. Prior CABG.
[2021-03-07] MEDS: iohexol 350 mg/mL 100 mL Btl IV (12:22)
--- NOTE | 2021-03-07 12:37 | ECG_ITS ---
[facility] Test Date: 2021-03-07 Pat Name: Israel Shaw Department: Room: Gender: Male Cleaning Associate: : 1945 Requested By: Vance Jacobs Order Number: [id number] West MD: Irasema Rosales M.D. Measurements Intervals [place] Rate: 91 P: 75 DE: 238 QRS: 9 QRSD: 126 T: 110 QT: 349 QTc: 430 Interpretive Statements SINUS RHYTHM WITH FIRST DEGREE AV BLOCK ANTEROSEPTAL MYOCARDIAL INFARCTION , OF INDETERMINATE AGE [40+ ms Q WAVE IN V1-V4] Compared to ECG 03/07/2021 09:03:10 First degree AV block now present Ventricular premature complex(es) no longer present Myocardial infarct finding still present Electronically Signed On 03-08-2021 22:02:34 EXERCISE EQUIPMENT REPAIR TECHNICIAN by Irasema Rosales M.D. [id number]
--- NOTE | 2021-03-07 13:07 | PC.PHAR ---
pt states he takes care of his own medications-pt states he is unsure if he takes zetia 10mg daily medication is on pts va med list-pt states what is on his va med list is what he takes
[2021-03-07 13:11] LABS: Troponin 5 6HR 10.92 ng/L (0-15)
[2021-03-07] MEDS: sodium chloride 0.9% 1,000 ML 999 ML IV (13:11)
[2021-03-07] MEDS: cefTRIAXone 2,000 MG in sodium chloride 0.9% (plus) 50 ML 100 MG IV (13:11)
[2021-03-07 13:12] LABS: Troponin 5 6HR Delta -3.08 ng/L (0-12)
[2021-03-07 13:49] LABS: Lactate (Lactic Acid level) 1.1 mmol/L (0.5-2.2)
[2021-03-07] MEDS: azithromycin 500 MG in sodium chloride 0.9% 250 ML 250 MG IV (14:31)
--- NOTE | 2021-03-07 15:25 | P.HP_ITS ---
Providers/Chief Complaint Primary Care Provider: Hari Cuellar DO Chief Complaint: Chest pains History of Present Illness Israel Shaw is a 76 year old male who presents with shortness of breath that started around 1AM this morning and lasted about 4 hours. He also had been experiencing some substernal chest pain which he describes as pressure, but the chest pain subsided after he took some nitroglycerin at home and in the ER. He had a cardiac work-up performed at [facility] about 6 weeks ago but is unsure about the details of his cardiac work-up. He also has had a slight cough lately. He has felt very weak. He feels like the symptoms have improved somewhat since being at the emergency department. In the ER, his troponins were normal and EKG showed sinus rhythm with first degree AV block with evidence of anteroseptal OR of indeterminate age. Chest CT showed left lower lobe pneumonitis with no pulmonary emboli. He is fully vaccinated against COVID and has received his booster. The emergency department physician was concerned about his chest discomfort, past history of coronary disease. He believes his heart score is high enough that he should come in for an observation, but was not aware of his recent hospitalization in [place]. Review of Systems General: Reports: 10 or more systems reviewed and unremarkable except in HPI and below Const: Denies: fever(s) or chills Eyes: Denies: change in vision ENMT: Denies: throat pain Card: Reports: chest pain Resp: Reports: dyspnea GI: Denies: abdominal pain or hematochezia : Denies: flank pain Musc: Denies: neck pain Skin/Breast: Denies: rash Neuro: Denies: headache(s) Psych: Denies: anxiety Endo: Denies: polyuria Jhonatan/Lymph: Denies: easy bruising All/Imm: Denies: urticaria Medications/Allergies Home Medications Medication Instructions Recorded Confirmed Last Taken Type acetaminophen 500 mg tablet 1,000 mg PO QID PRN 02/08/20 03/07/21 03/16/20 History carvedilol 6.25 mg tablet 6.25 mg PO BID 02/08/20 03/07/21 03/16/20 History clopidogrel 75 mg tablet 75 mg PO DAILY 02/08/20 03/07/21 03/16/20 History cyclobenzaprine 10 mg tablet 10 mg PO TID PRN 02/08/20 03/07/21 03/16/20 History gabapentin 100 mg capsule 100 mg PO TID 02/08/20 03/07/21 03/16/20 History melatonin 3 mg capsule 3 mg PO BEDTIME 02/08/20 03/07/21 03/16/20 History naproxen sodium 220 mg capsule 220 mg PO BID PRN 02/08/20 03/07/21 03/16/20 History rosuvastatin 40 mg tablet 40 mg PO DAILY 02/08/20 03/07/21 03/16/20 History nitroglycerin 0.4 mg sublingual 0.4 mg SUBLINGUAL Q5M PRN #50 tab 02/09/20 03/07/21 Unknown Rx tablet cholecalciferol (vitamin D3) 50 50 mcg PO QAM 10/26/20 03/07/21 Unknown History mcg (2,000 unit) capsule guselkumab 100 mg/mL subcutaneous 100 mg SUBCUT .q8 weeks #1 ml 10/31/20 03/07/21 Unknown Rx auto-injector hydroxyzine HCl 10 mg tablet 10 mg PO TID PRN 12/20/20 03/07/21 Unknown History sacubitril 97 mg-valsartan 103 mg 1 tab PO BID #180 tab 12/21/20 03/07/21 U nknown Rx tablet Zetia 10 mg PO DAILY 03/07/21 03/07/21 Unknown History aspirin [Aspir-81] 81 mg PO QAM 03/07/21 03/07/21 Unknown History Allergies Allergy/AdvReac Type Severity Reaction Status Date / Time No Known Allergies Allergy Verified 03/07/21 13:07 PFSH Acute PFSH: Medical History Atherosclerotic heart disease of [place] coronary artery without angina pectoris History of hypertension History of hypothyroidism Hx of chest pain Hx of congestive heart failure Hx of coronary atherosclerosis Hx of heart failure Hx of hyperlipidemia Ischemic cardiomyopathy An EKG was done today which revealed a sinus rhythm with recurrent PVCs. Possible left atrial enlargement. Poor R wave progression. Some nonspecific T wave changes in the high lateral leads. Psoriasis Surgical History History of open heart surgery Hx of appendectomy Family History Father CAD (coronary artery disease) Mother CAD (coronary artery disease) Grandmother CAD (coronary artery disease) Family/Other CAD (coronary artery disease) Brother CAD (coronary artery disease) Sister CAD (coronary artery disease) Denies family history of Diabetes Clotting disorder Dementia Chronic kidney disease (CKD) Suicide Anesthesia complication Bleeding disorder Lung disease Cancer Stroke Social History (Updated 03/07/21 @ 15:41 by Rohan Joseph MD) Smoking and tobacco status: former smoker Alcohol intake: former Vitals/I&O/Wt Last Vital Signs Temp 99.5 F 03/07/21 06:12 Pulse 95 03/07/21 12:09 Resp 26 H 03/07/21 12:09 BP 130/67 03/07/21 12:09 Pulse Ox 95 03/07/21 12:09 Weight last 48 hrs Weight 95.254 kg Physical Exam Narrative: EXAM NARRATIVE: General exam is a white male, who denies any chest discomfort currently, who appears comfortable. HEENT: Atraumatic normocephalic. Oropharynx is clear. Neck is supple no lymphadenopathy or thyromegaly Cardiovascular regular rate and rhythm, heart sounds distant, 2/6 systolic murmur Lungs clear, diminished breath sounds bilaterally. No crackles or wheezes. Abdomen is soft nontender. No obvious organomegaly exam is deferred Extremities no cyanosis clubbing or edema, cap refill brisk Skin no rash Neuro no obvious focal deficits. Data : 03/07/21 06:45 03/07/21 07:35 Micro: Microbiology 03/07/21 13:24 Blood Culture - Preliminary Blood SPECIMEN COLLECTED 03/07/21 13:22 Blood Culture - Preliminary Blood SPECIMEN COLLECTED Other data: Dimer 0.8 BNP 335 LFTs normal Initial troponin XIV with repeat of 13 and 6-hour of 10 Lipase 16 Chest x-ray concern for left lower lobe infiltrate. CTA no pulmonary embolism, prior CABG, left lower lobe pneumonitis. Previous nuclear stress test June 2020 demonstrated large areas of decreased uptake inferior anterior and apical regions with some reversibility suggestive of myocardial scarring in distribution of all 3 coronary arteries with abelino- infarct ischemia in distribution of left circumflex. Ejection fraction was around 39% and 3 times daily ratio was elevated. Previous echocardiogram in February 2020 demonstrated diffuse hypokinesis, EF around 35%, mitral regurgitation, severe EKG demonstrates a sinus rhythm with left axis deviation. PVCs are noted. Poor R wave progression and Q waves are noted anteriorly. A&P Assessment and plan (1) Chest pain: Initial troponin was negative CTA negative for pulmonary embolism Continue aspirin, Plavix, statin Continue beta-mignon Add long-acting nitrate tomorrow Nuclear stress test tomorrow Status: Acute (2) Pneumonia: Sputum culture Continue Rocephin, azithromycin Blood culture Status: Acute (3) Atherosclerotic heart disease of [place] coronary artery without angina pectoris: See above Status: Acute Qualifiers: [place] vs. transplanted heart: [place] heart Qualified Code(s): I25.10 - Atherosclerotic heart disease of [place] coronary artery without angina pectoris (4) Hx of congestive heart failure: No evidence of heart failure currently. Maintained on Entresto Continue home medications Status: Acute (5) Mitral regurgitation: Check echocardiogram Status: Acute Qualifiers: Cardiac valve disease etiology: nonrheumatic Qualified Code(s): I34.0 - Nonrheumatic mitral (valve) insufficiency Additional A&P Information Cognitive deficit. May have some underlying dementia. Check B12 and folate Lovenox for DVT prophylaxis Full code Attestations Medical Necessity Statement*: Will require less than 2 midnight stay for evaluation and treatment of chest discomfort Time Spent in Patient Care: Greater than 35 minutes Coding Level of Care Code Acute Automotive Parts Interpreter for Chg Fwd Diagnoses Chest pain R07.9 Pneumonia J18.9 Atherosclerotic heart disease of [place] coronary artery without angina pectoris I25.10 [place] vs. transplanted heart: [place] heart Hx of congestive heart failure Z86.79 Mitral regurgitation I34.0 Cardiac valve disease etiology: nonrheumatic
[2021-03-07 17:23] LABS: Adenovirus Not Detected (NOT DETECT); Chlamydia Pneumoniae Not Detected (NOT DETECT); Coronavirus 229E,HKU1,NL63,OC4 Not Detected (NOT DETECT); Human Metapneumovirus Not Detected (NOT DETECT); Human Rhinovirus/Enterovirus Not Detected (NOT DETECT); Influenza A Not Detected (NOT DETECT); Influenza A H1 Not Detected (NOT DETECT); Influenza A H1-2009 Not Detected (NOT DETECT); Influenza A H3 Not Detected (NOT DETECT); Influenza B Not Detected (NOT DETECT); Mycoplasma Pneumoniae Not Detected (NOT DETECT); Parainfluenza Virus Type 1 Not Detected (NOT DETECT); Parainfluenza Virus Type 2 Not Detected (NOT DETECT); Parainfluenza Virus Type 3 Not Detected (NOT DETECT); Parainfluenza Virus Type 4 Not Detected (NOT DETECT); Respiratory Syncytial Virus A Not Detected (NOT DETECT); Respiratory Syncytial Virus B Not Detected (NOT DETECT); SARS-COV-2 Not Detected (NOT DETECT)
[2021-03-07 17:54] LABS: Thyroid Stimulating Hormone 0.24 uIU/mL (0.27-4.20); Vitamin B12 298 pg/mL (232-1245)
--- NOTE | 2021-03-07 19:40 | ECG_ITS ---
[facility] Test Date: 2021-03-08 Pat Name: Israel Shaw Department: Room: 106 Gender: Male U.[place]. Senator: : 1945 Requested By: Rohan Desai Order Number: [id number] Brett MD: ELY NANCE Interpretive Statements NAME OF STUDY: LEXISCAN SESTAMIBI STRESS TEST INDICATION: Chest Pain NOTE: Please note that this is the electrocardiogram portion of the Lexiscan/Sestamibi stress test. The perfusion scan will be documented separately. DATA: Baseline heart rate was 78 beats per minute. Baseline blood pressure was 111/56 millimeters of mercury. Target heart rate was 146. Maximum heart rate achieved was 90. which was 61 % of the predicted target heart rate. Maximum blood pressure was 111/61 millimeters of mercury. The reason for ending the test was completion of the protocol. The patient did not experience any symptoms. ELECTROCARDIOGRAM: BASELINE: Sinus rhythm. Normal axis. interventricular conduction delay otherwise, poor R wave progression could be old [place]. No arrhythmia noted. EXERCISE: After Lexiscan injection, no ST-T changes suggestive of ischemic noted. No arrhythmia noted. CONCLUSION: Please note due to baseline abnormality of the EKG specificity and sensitivity of the EKG portion of LexiScan MIBI stress test will be low 1. EKG not suggestive of ischemia 2. Lexiscan injection unremarkable. 3. Perfusion scan will be documented separately. Samex Electronically Signed On 03-11-2021 14:59:44 SWITCHBOARD CLERK by ELY NANCE [id number]
[2021-03-07] MEDS: sacubitril/valsartan 24-26 mg Tablet 4 EACH PO (21:04)
[2021-03-07] MEDS: enoxaparin 40 mg/0.4 mL Syringe SUBCUT (21:05)
[2021-03-07] MEDS: carvedilol 6.25 mg Tablet PO (21:05)
[2021-03-07] MEDS: gabapentin 100 mg Capsule PO (21:05)
--- NOTE | 2021-03-07 22:24 | PC.NURSE ---
pt receiving enoxaparin for VTE prevention
[2021-03-08] VITALS (8 sets, daily range): BP systolic 93–128; BP diastolic 48–78; PULSE 69–84; RESP 15–18; TEMP 36.3–36.7; O2SAT 92–94
[2021-03-08 03:55] LABS: Basophils % 0.1 %; Eosinophils # 0.1 10^3/uL (0.0-0.8); Eosinophils % 0.6 %; Hematocrit 40.8 % (42.0-52.0); Hemoglobin 13.6 g/dL (11.7-16.6); Lymphocytes # 1.5 10^3/uL (0.8-4.8); Lymphocytes % 17.5 %; Mean Corpuscular HGB Conc 33.3 g/dL (30.0-36.0); Mean Corpuscular Hemoglobin 31.5 pg (28.0-34.0); Mean Corpuscular Volume 94.4 fl (80-94); Mean Platelet Volume 9.1 fL (7.4-10.4); Monocytes # 0.8 10^3/uL (0.2-0.9); Monocytes % 9.2 %; Neutrophils # 6.09 10^3/uL (1.8-7.7); Neutrophils % 72.4 %; Nucleated Red Blood Cells % 0 %; Platelet Count 185 10^3/cmm (130-400); Red Blood Count 4.32 10^6/uL (4.1-5.3); Red Cell Distribution Width 12.6 % (12.1-15.1); White Blood Count 8.4 10^3/uL (4.0-10.0)
[2021-03-08 04:18] LABS: Alanine Aminotransferase 17 U/L (0-41); Albumin Level 3.7 g/dL (3.5-5.2); Alkaline Phosphatase 60 IU/L (40-130); Anion Gap 15.1 (5-19); Aspartate Amino Transferase 16 U/L (0-40); Blood Urea Nitrogen 11 mg/dL (8-23); Calcium 8.6 mg/dL (8.5-10.5); Carbon Dioxide 24 mmol/L (22-29); Chloride 103 mmol/L (98-107); Globulin 2.2 g/dL (1.3-4.6); Glucose 90 mg/dL (65-115); Osmolality Calculated 285 mOsm/kg (285-295); Potassium 4.1 mmol/L (3.5-5.1); Sodium 138 mmol/L (136-145); Total Bilirubin 0.4 mg/dL (0.15-1.2); Total Protein 5.9 g/dL (6.6-8.7)
[2021-03-08 04:23] LABS: Influenza A by IFA Negative (Negative); Influenza B by IFA Negative (Negative)
--- NOTE | 2021-03-08 05:00 | USCV_ITS ---
Israel Shaw Age: 76 Gender: M : 1945 Exam Date: 03/08/2021 06:59 Ordering Phys: Rohan Joseph MD Technologist: Exam Location: [facility] – [place] Indication: HX DC BP: 125 / 56 HR: 77 Rhythm: Sinus Technical Quality: Adequate MEASUREMENTS (Male / Female) Normal Values 2D ECHO LV Diastolic Diameter PLAX 6.1 cm 4.2 - 5.9 / 3.9 - 5.3 cm LV Systolic Diameter PLAX 5.3 cm IVS Diastolic Thickness 1.1 cm 0.6 - 1.0 / 0.6 - 0.9 cm IVS Systolic Thickness 1.4 cm LVPW Diastolic Thickness 1.5 cm 0.6 - 1.0 / 0.6 - 0.9 cm LVPW Systolic Thickness 1.5 cm LVOT Diameter 2.0 cm LV Ejection Fraction 2D Teich 28.9 % LV Ejection Fraction MOD 2C 23.7 % LV Ejection Fraction 2C AL 23.1 % LA Diameter 4.6 cm LA Width 4.2 cm LA Height 5.8 cm RA Width 3.9 cm RA Height 4.6 cm M-MODE Aortic Annulus Diameter 5.0 cm LA Ao Ratio MM 0.9 MV E Point Septal Separation 2.9 cm DOPPLER AV Peak Velocity 145.0 cm/s LVOT Peak Velocity 79.0 cm/s AV Area Cont Eq vti 1.6 cm squared AV Area Cont Eq pk 1.7 cm squared MV Area PHT 5.0 cm squared Mitral E to A Ratio 1.2 MV E' Velocity 44.5 cm/s Mitral E to MV E' Ratio 8.7 Mitral E to LV E' Lateral Ratio 7.0 Mitral E to LV E' Septal Ratio 11.6 TR Peak Velocity 186.0 cm/s TR Peak Gradient 13.8 mmHg TV Peak E Velocity 72.0 cm/s Right Atrial Pressure 3.0 mmHg Pulmonary Artery Systolic Pressu 16.8 mmHg FINDINGS Left Ventricle Diffuse hypokinesis of left ventricle with ejection fraction of 33% by MOD. Mildly dilated LV cavity Right Ventricle The right ventricle is normal in size and function. Right Atrium The right atrium is normal in size. Left Atrium Mildly increased left atrial size. Mitral Valve Mild prolapse of the anterior mitral leaflet.mild-moderate mitral valve regurgitation. Aortic Valve Minimally thickened aortic valve Tricuspid Valve Trace tricuspid valve regurgitation. Pulmonic Valve Pulmonic valve not well visualized. Pericardium Normal pericardium without effusion. Aorta Normal ascending aorta dimension. CONCLUSIONS Diffuse hypokinesis of left ventricle with ejection fraction of 33% by MOD. Mildly dilated LV cavity. Mildly increased left atrial size. Mild prolapse of the anterior mitral leaflet.mild-moderate mitral valve regurgitation. Minimally thickened aortic valve. Trace tricuspid valve regurgitation. There are no intracardiac masses. Compared to the study from 02/08/2020, the ejection fraction has decreased from 35 to 33% Dr Cesar Urbina MD [facility] (Electronically Signed) Final Date: 08 March 2021 09:28 S
[2021-03-08] MEDS: aspirin 81 mg EC Tablet PO (05:01)
[2021-03-08] MEDS: regadenoson 0.4 Mg/5 ml Syringe IVP (07:54)
[2021-03-08] MEDS: atorvastatin 40 mg Tablet 80 MG PO (09:26)
[2021-03-08] MEDS: clopidogrel 75 mg Tablet PO (09:26)
[2021-03-08] MEDS: carvedilol 6.25 mg Tablet PO (09:26)
[2021-03-08] MEDS: pantoprazole DR 40 mg Tablet PO (09:26)
[2021-03-08] MEDS: gabapentin 100 mg Capsule PO ×2 (09:27→15:15)
[2021-03-08] MEDS: sacubitril/valsartan 24-26 mg Tablet 4 EACH PO (09:29)
--- NOTE | 2021-03-08 09:38 | PC.NURSE ---
at stress test
--- NOTE | 2021-03-08 09:57 | PC.NURSE ---
to nuc med dept for stress test
[2021-03-08] MEDS: isosorbide mononitrate ER 30 mg Tablet PO (11:30)
[2021-03-08] MEDS: cefTRIAXone 2,000 MG in sodium chloride 0.9% (plus) 50 ML 100 MG IV (12:32)
[2021-03-08] MEDS: azithromycin 500 MG in sodium chloride 0.9% 250 ML 250 MG IV (13:59)
--- NOTE | 2021-03-08 14:51 | PM.DCS ---
Discharge Providers Date of Admission: 03/07/21 16:10 Date of Discharge: March 08, 2021 Attending Provider at Admission: Rohan Joseph MD Attending Provider at Discharge: Rohan Joseph MD Primary Care Provider: Hari Cuellar DO Diagnoses at Discharge Discharge Diagnosis (1) Chest pain: Status: Acute (2) Pneumonia: Status: Acute (3) Atherosclerotic heart disease of [place] coronary artery without angina pectoris: Status: Acute Qualifiers: [place] vs. transplanted heart: [place] heart Qualified Code(s): I25.10 - Atherosclerotic heart disease of [place] coronary artery without angina pectoris (4) Hx of congestive heart failure: Status: Acute (5) Mitral regurgitation: Status: Acute Qualifiers: Cardiac valve disease etiology: nonrheumatic Qualified Code(s): I34.0 - Nonrheumatic mitral (valve) insufficiency Reason for Visit Reason for Visit: Chest pains Hospital Course Hospital Course Israel is a 76-year-old white male who presented to the hospital with an episode of chest discomfort. He also felt weak and had a cough. CTA was performed which demonstrated no pulmonary embolism. Troponins were not elevated. He had no clinical evidence of heart failure. CTA demonstrated a small left lower lobe pneumonia. He did not require any oxygen. He was given Rocephin and azithromycin. Echocardiogram was obtained which demonstrated moderate mitral regurgitation, EF of 35% which was similar to previous. Stress test demonstrated large area of PA basal to distal inferior and lateral with small area of abelino-infarct ischemia as well is a smaller area noted in the mid anterior wall. This was also similar to previous nuclear stress testing in June. Patient had an angiogram in [place] in 2019, as noted in outpatient records. At that time he was recommended for medical treatment only. Imdur was added to his regimen. The following day he had had no significant chest discomfort. He was able to ambulate around the room. He was not requiring oxygen. White blood cell count was normal. It was thought he could discharge home, on metoprolol. He will also finish outpatient treatment of his pneumonia. Telemetry showed no overall concerning rhythms. He will follow-up with cardiology and his primary care provider as an outpatient. Physical Exam Narrative: EXAM NARRATIVE: General exam no distress Neck is supple Cardiovascular regular rate and rhythm Lungs clear Abdomen is soft Extremities no cyanosis clubbing or edema Discharge Data Data Completed and Pending: Completed Studies During Hospitalization Category Date Time Status CT angio chest PE protcl [id number] Urge nt Cat Scan 03/07/21 11:00 Completed Sestamibi Stress Test Request Antonio ne Exams 03/07/21 19:40 Draft XR chest 1V reina ble [id number] Stat Exams 03/07/21 06:37 Completed NM rosana perf SPECT r/s* [id number] Routin e Nuc Med 03/08/21 19:40 Completed CV. echo complete * [id number] Routine Ultrasound 03/08/21 05:00 Completed Pending at discharge Category Date Time Status Blood Culture Sta t Lab 03/07/21 13:24 Results Sputum Culture an d Gram Stain Antonio ne Lab 03/07/21 19:40 Uncollected Labs from last 24 hours 03/08/21 03/08/21 03/08/21 03:18 03:18 00:01 WBC 8.4 RBC 4.32 Hgb 13.6 Hct 40.8 L MCV 94.4 H MCH 31.5 MCHC 33.3 RDW 12.6 Plt Count 185 MPV 9.1 Neut % (Auto) 72.4 Lymph % (Auto) 17.5 [place] % (Auto) 9.2 Eos % (Auto) 0.6 Baso % (Auto) 0.1 Neut # (Auto) 6.09 Lymph # (Auto) 1.5 [place] # (Auto) 0.8 Eos # (Auto) 0.1 Baso # (Auto) 0.0 Nucleated RBC % (a uto) 0 Nucleated RBCs # 0.0 Sodium 138 Potassium 4.1 Chloride 103 Carbon Dioxide 24 Anion Gap 15.1 BUN 11 Creatinine 0.9 GFR Calculation Not Reportable Glucose 90 Calculated Osmolal ity 285 Calcium 8.6 Total Bilirubin 0.4 AST 16 ALT 17 Alkaline Phosphata se 60 Total Protein 5.9 L Albumin 3.7 Globulin 2.2 Vitamin B12 TSH Coronavirus 229E ( PCR) Influenza Type A A g Negative Influenza Type B A g Negative SARS-CoV-2 (PCR) 03/07/21 03/07/21 15:40 07:35 WBC RBC Hgb Hct MCV MCH MCHC RDW Plt Count MPV Neut % (Auto) Lymph % (Auto) [place] % (Auto) Eos % (Auto) Baso % (Auto) Neut # (Auto) Lymph # (Auto) [place] # (Auto) Eos # (Auto) Baso # (Auto) Nucleated RBC % (a uto) Nucleated RBCs # Sodium Potassium Chloride Carbon Dioxide Anion Gap BUN Creatinine GFR Calculation Glucose Calculated Osmolal ity Calcium Total Bilirubin AST ALT Alkaline Phosphata se Total Protein Albumin Globulin Vitamin B12 298 TSH 0.24 L Coronavirus 229E ( PCR) Not detected Influenza Type A A g Influenza Type B A g SARS-CoV-2 (PCR) Not detected Vitals: Last Vital Signs Temp 98.1 F 03/08/21 12:00 Pulse 73 03/08/21 12:00 Resp 18 03/08/21 12:00 BP 111/57 03/08/21 12:00 Pulse Ox 94 03/08/21 12:00 Discharge Plan Discharge Patient Disposition: Home Condition: Stable Prescriptions: New amoxicillin-pot clavulanate [Augmentin] 875-125 mg tablet 1 tab PO BID Qty: 14 RF: 0 pantoprazole 40 mg Tablet,Delayed Release (Dr/Ec) 40 mg PO DAILY Qty: 30 RF: 0 isosorbide mononitrate 30 mg Tablet Extended Release 24 Hr 30 mg PO DAILY Qty: 30 RF: 0 Continued acetaminophen [Tylenol Extra Strength] 500 mg tablet 1,000 mg PO QID PRN (Reason: Pain) RF: 0 carvedilol [Coreg] 6.25 mg tablet 6.25 mg PO BID RF: 0 clopidogrel [Plavix] 75 mg tablet 75 mg PO DAILY RF: 0 gabapentin 100 mg capsule 100 mg PO TID RF: 0 melatonin 3 mg capsule 3 mg PO BEDTIME RF: 0 rosuvastatin 40 mg tablet 40 mg PO DAILY RF: 0 cholecalciferol (vitamin D3) [Vitamin D3] 50 mcg (2,000 unit) capsule 50 mcg PO QAM RF: 0 nitroglycerin [Nitrostat] 0.4 mg tablet, sublingual 0.4 mg sublingual Q5M PRN (Reason: chest pain) Qty: 50 RF: 2 Tremfya 100 mg/mL auto-injector 100 mg SUBCUT .q8 weeks Qty: 1 RF: 3 Entresto 97-103 mg tablet 1 tab PO BID Qty: 180 RF: 3 Aspir-81 81 mg Tablet,Delayed Release (Dr/Ec) 81 mg PO QAM RF: 0 Zetia 10 mg tablet 10 mg PO DAILY RF: 0 Discontinued hydroxyzine HCl 10 mg tablet 10 mg PO TID PRN (Reason: Anxiety) RF: 0 cyclobenzaprine 10 mg tablet 10 mg PO TID PRN (Reason: Muscle Spasm) RF: 0 naproxen sodium [Aleve] 220 mg capsule 220 mg PO BID PRN (Reason: Pain) RF: 0 Discharge Orders: Discharge Order (Routine); Ordered 03/08/21 Ordered By: Rohan Joseph Referrals: Hari Cuellar, [Primary Care Provider] - 4-7 days Lorene Hernandez FNP [Nurse Practitioner] - 1 week Discharge Diet: Cardiac Discharge Activity: Increase activity as tolerated Patient Instructions: Opioid Safety Activity Restrictions/Additional Instructions: Take all medicine as prescribed Follow-up with cardiology as noted Return for any concerns Discharge Attestations Time Spent in Discharge Care*: greater than 30 min Quality Metrics Clinical Quality Measures During this hospital stay, did patient experience: None Coding Level of Care Code Acute [facility] [place] note Diagnoses Chest pain R07.9 Pneumonia J18.9 Atherosclerotic heart disease of [place] coronary artery without angina pectoris I25.10 [place] vs. transplanted heart: [place] heart Hx of congestive heart failure Z86.79 Mitral regurgitation I34.0 Cardiac valve disease etiology: nonrheumatic
--- NOTE | 2021-03-08 16:21 | PC.NURSE ---
Discharge Note Patient discharged to home via wheelchair accompanied by brother elvira. Discharge instructions reviewed with patient and/or sales representative. Discuss to them to keep his ff-up appointments with his pcp and electronic commerce specialist as scheduled. Mobile pharmacy medications and/or prescriptions provided. Educated pt and brother regarding his new meds actions, dosing, timing and possible side effects. Instructed pt to monitor his blood pressure at home. Pt verbalizes understanding. Belongings/home medications returned.
--- NOTE | 2021-03-08 16:24 | PC.NURSE ---
Meds to bed called meds to [facility] employee pharmacy as chosen by pt and brother.
--- NOTE | 2021-03-08 19:40 | NMCV_ITS ---
NM rosana perf SPECT r/s* [id number] Israel Shaw Age: 76 Gender: M : 1945 Exam Date: 03/08/2021 19:40 Ordering Phys: Rohan Joseph MD Technologist: LEXI Moreno Exam Location: [facility] Indications: CHEST PAIN STRESS TEST Please see separate stress test report in [facility] for full findings IMAGE PROTOCOL Rest/Stress 1 Lexiscan Day Radiopharmaceutical Dose (mCi) Administration Site Administered by Rest: Tc-99m 11.0 IV LEXI Archuleta Sestamibi Stress:Tc-99m 32.9 IV LEXI Archuleta Sestamibi Rest: 08-Mar-2021 60 Discovery 630 Stress: 08-Mar-2021 30 Discovery 630 0.4mg Lexiscan. Images obtained in supine and prone position. SPECT RESULTS Technical Quality: Excellent Raw Data Analysis: Normal Image Corrections: No attenuation or motion correction applied Summed Stress Score: 27 Summed Rest Score: 17 Summed Difference Score: 10 PERFUSION FINDINGS Large area of fixed perfusion defect noted in basal to distal inferior and basal to distal lateral wall suggestive of old myocardial infarction versus scarring with mild abelino-infarct ischemia, small area of fixed perfusion defect noted in mid to distal anterior wall with mild reversibility suggestive of old myocardial infarction with mild abelino-infarct ischemia. FUNCTIONAL RESULTS (calculated via Gated SPECT) Stress Image LV EF (%): 36 Stress EDV (mL):185 TID: 1.38 Stress ESV (mL):119 Rest Image LV EF (%): 36 FUNCTIONAL FINDINGS: Inferior and lateral wall akinesis. 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 Small area for myocardial infarction versus scarring surrounded by mild abelino-infarct ischemia noted in mid anterior wall of the left ventricle noted. EKG segment will be documented separately. Nancy Cornelius MD (Electronically Signed) Final Date: 08 March 2021 14:29 S
== END 2021-03-08 16:25 | disposition home or self-care (01) ==
LOC: ER 06:35 → CSU 18:24
PROVIDERS: Admitting Provider Internal Medicine; Emergency Provider Emergency Medicine; PCP Emergency Medicine Emergency Medical Services; Visit Provider Internal Medicine
DX: R07.9 Chest pain, unspecified (principal); J18.9 Pneumonia, unspecified organism; I25.10 Atherosclerotic heart disease of native coronary artery without angina pectoris; Z86.79 Personal history of other diseases of the circulatory system; I34.0 Nonrheumatic mitral (valve) insufficiency; Z79.82 Long term (current) use of aspirin; I11.0 Hypertensive heart disease with heart failure; I50.9 Heart failure, unspecified; E78.5 Hyperlipidemia, unspecified; Z82.49 Family history of ischemic heart disease and other diseases of the circulatory system; Z83.3 Family history of diabetes mellitus; Z87.891 Personal history of nicotine dependence
CPT/HCPCS: 36415; 71045; 71275; 78452; 80053; 82607; 83605; 83690; 83880; 84443; 84484; 85025; 85378; 85610; 85730; 87040; 87635; 87804; 93005; 93017; 93306; 96365; 96367; 96372; 99285; A9500; G0378; J0456; J0696; J1650; J2785; J7030; J7050; Q9967

== ENCOUNTER 2021-05-11 09:30 | Emergency (ER) | payer OTHER, MEDICARE, SELFPAY ==
[2021-05-11 09:38] VITALS: BP 124/76; PULSE 60; RESP 16; TEMP 36.7; O2SAT 95; BMI 29.4
--- NOTE | 2021-05-11 09:47 | XR_ITS ---
WS: [id number] Left hand, 3 views, 05/11/2021 Clinical Data: injury Comparison: None. Findings: There is amputation of the distal phalanx of the left second finger. There is injury to the distal po rtion of the left second finger middle phalanx. There is soft tissue injury to the distal phalanx of the left thumb.No new fractures or dislocations are seen. The joint spaces are normal. XR/XR hand LT min 3V* [id number] Impression: 1. Amputation of the distal phalanx of the left second finger. 2. Bony injury to the distal half of the middle phalanx of the left second fing er. 3. Soft tissue injury to the distal phalanx of the left thumb.
--- NOTE | 2021-05-11 09:54 | W.ED.WOUNDLC ---
Documented by User: [email or web address] Evans 05/11/21 10:44 HPI - Wound/Laceration General: Chief Complaint: Wound/Laceration Stated Complaint: Cut finger Thumb on Lt Hand Time Seen by Provider: 05/11/21 09:42 History of Present Illness: Patient cut left thumb and left forefinger with a table saw blade today by accident. Denies any other injury. Associated symptoms: Denies chills, fever(s), nausea or vomiting Review of Systems Const: Denies: fever(s), chills or body aches Eyes: Denies: eye discomfort ENMT: Denies: throat pain Card: Denies: chest pain Resp: Denies: dyspnea GI: Denies: abdominal pain, nausea or vomiting Musc: Reports: extremity pain and other (Laceration tip of left forefinger and the left thumb from a table saw accid) Skin/Breast: Denies: rash Neuro: Denies: headache(s) Psych: Denies: depression or suicidal ideation PFSH ED PFSH: Medical History Atherosclerotic heart disease of [place] coronary artery without angina pectoris History of hypertension History of hypothyroidism Hx of chest pain Hx of congestive heart failure Hx of coronary atherosclerosis Hx of heart failure Hx of hyperlipidemia Ischemic cardiomyopathy An EKG was done today which revealed a sinus rhythm with recurrent PVCs. Possible left atrial enlargement. Poor R wave progression. Some nonspecific T wave changes in the high lateral leads. Psoriasis Surgical History History of open heart surgery Hx of appendectomy Family History Father CAD (coronary artery disease) Mother CAD (coronary artery disease) Grandmother CAD (coronary artery disease) Family/Other CAD (coronary artery disease) Brother CAD (coronary artery disease) Sister CAD (coronary artery disease) Denies family history of Diabetes Clotting disorder Dementia Chronic kidney disease (CKD) Suicide Anesthesia complication Bleeding disorder Lung disease Cancer Stroke Social History Smoking and tobacco status: never smoked Alcohol intake: former Physical Exam Const: COMMON NORMALS: average body habitus Cardio: COMMON NORMALS: regular rate and regular rhythm RATE: regular rate RHYTHM: regular rhythm Psych: COMMON NORMALS: mental status grossly normal Skin: OTHER: Large laceration to the pad of left thumb and small avulsion to the tip of left fourth finger which already has a partial amputation on it. Patient has good range of motion of both digits and neuro is intact as well as circulation Procedures Laceration Laceration 1: Site: hand Side (If applicable): left Size (cm): 3 Description: irregular and contaminated Depth: simple, single layer Local Anesthetic: lidocaine 1% Amount of anesthesia used (mL): 4 Pre-repair: wound explored and irrigated extensively Skin layer closed with: nylon Size (cm): 3-0 Number of sutures: 5 Technique: simple, interrupted Course Vital Signs: Vital signs: Vital Signs Temperature 98.0 F 05/11/21 09:38 Pulse Rate 64 05/11/21 11:02 Respiratory Rate 15 05/11/21 11:02 Blood Pressure 128/55 05/11/21 11:02 Pulse Oximetry 98 05/11/21 11:02 MDM - Wound/Laceration Medical Decision Making Possible open fracture laceration of pad of left thumb and then an avulsion to to the left distal forefinger. Laceration was loosely closed and dressing was applied to both injuries and patient was directed follow-up with orthopedic clinic. Patient placed antibiotics and pain medication. Lab Data Radiology Impressions Hand X-Ray 05/11/21 09:47 Impression: 1. Amputation of the distal phalanx of the left second finger. 2. Bony injury to the distal half of the middle phalanx of the left second finger. 3. Soft tissue injury to the distal phalanx of the left thumb. Discharge Plan Discharge Patient Disposition: Home Clinical Impression: Laceration, Avulsion fracture, Avulsion of skin of finger without complication Condition: Stable Prescriptions: New hydrocodone-acetaminophen 5-325 mg tablet 1 tab PO TID PRN (Reason: pain) Qty: 14 0RF cephalexin 500 mg capsule 500 mg PO Q8H 7 Days Qty: 21 0RF Discontinued amoxicillin-pot clavulanate [Augmentin] 500-125 mg tablet 1 tab PO TID Qty: 15 0RF No Action acetaminophen [Tylenol Extra Strength] 500 mg tablet 1,000 mg PO QID PRN (Reason: Pain) 0RF carvedilol [Coreg] 6.25 mg tablet 6.25 mg PO BID 0RF Rx Instructions: must administer with a meal/food clopidogrel [Plavix] 75 mg tablet 75 mg PO DAILY 0RF gabapentin 100 mg capsule 100 mg PO TID 0RF melatonin 3 mg capsule 3 mg PO BEDTIME 0RF rosuvastatin 40 mg tablet 40 mg PO DAILY 0RF cholecalciferol (vitamin D3) [Vitamin D3] 50 mcg (2,000 unit) capsule 50 mcg PO QAM 0RF nitroglycerin [Nitrostat] 0.4 mg tablet, sublingual 0.4 mg sublingual Q5M PRN (Reason: chest pain) Qty: 50 2RF Rx Instructions: do not exceed 3 doses per episode Tremfya 100 mg/mL auto-injector 100 mg SUBCUT .q8 weeks Qty: 1 3RF Rx Instructions: Maintenance: inject subcutaneous every 8 weeks following loading dose Entresto 97-103 mg tablet 1 tab PO BID Qty: 180 3RF Rx Instructions: Dose increased aspirin 81 mg Tablet,Delayed Release (Dr/Ec) 81 mg PO QAM 0RF Zetia 10 mg tablet 10 mg PO DAILY 0RF Rx Instructions: pt states he is unsure if he takes this medication-this medication is [place] isosorbide mononitrate 30 mg Tablet Extended Release 24 Hr 30 mg PO DAILY Qty: 30 0RF pantoprazole 40 mg Tablet,Delayed Release (Dr/Ec) 40 mg PO DAILY Qty: 30 0RF Discharge Orders: Discharge ED (Routine); Ordered 05/11/21 Ordered By: Issa Carlisle Referrals: Hari Cuellar DO [Primary Care Provider] - Discharge Diet: Usual diet Discharge Activity: Increase activity as tolerated Patient Instructions: Care For Your Stitches (ED), Laceration (ED) Activity Restrictions/Additional Instructions: Follow-up with medical provider as directed. Take medications as prescribed. Return to the ER or your medical provider if condition worsens. Please read and understand discharge instructions. If any questions ask please. Hospital will contact you with appointment for orthopedic clinic for follow-up. Sutures need to be removed in 7 days. Can use Vaseline to help keep wound moist to help with wound care. Coding Level of Care Code ED Motor Vehicle Emissions Inspector for Chg Fwd Exam Expanded Problem Focused Documented by User: Devin Sargent DO 05/14/21 12:29 HPI - Wound/Laceration General: Chief Complaint: Wound/Laceration Stated Complaint: Cut finger Thumb on Lt Hand Time Seen by Provider: 05/11/21 09:42 PFSH ED PFSH: Medical History Atherosclerotic heart disease of [place] coronary artery without angina pectoris History of hypertension History of hypothyroidism Hx of chest pain Hx of congestive heart failure Hx of coronary atherosclerosis Hx of heart failure Hx of hyperlipidemia Ischemic cardiomyopathy An EKG was done today which revealed a sinus rhythm with recurrent PVCs. Possible left atrial enlargement. Poor R wave progression. Some nonspecific T wave changes in the high lateral leads. Psoriasis Surgical History History of open heart surgery Hx of appendectomy Family History Father CAD (coronary artery disease) Mother CAD (coronary artery disease) Grandmother CAD (coronary artery disease) Family/Other CAD (coronary artery disease) Brother CAD (coronary artery disease) Sister CAD (coronary artery disease) Denies family history of Diabetes Clotting disorder Dementia Chronic kidney disease (CKD) Suicide Anesthesia complication Bleeding disorder Lung disease Cancer Stroke Social History Smoking and tobacco status: never smoked Alcohol intake: former Course Vital Signs: Vital signs: Vital Signs Temperature 98.0 F 05/11/21 09:38 Pulse Rate 64 05/11/21 11:02 Respiratory Rate 15 05/11/21 11:02 Blood Pressure 128/55 05/11/21 11:02 Pulse Oximetry 98 05/11/21 11:02 MDM - Wound/Laceration Medical Decision Making Possible open fracture laceration of pad of left thumb and then an avulsion to to the left distal forefinger. Laceration was loosely closed and dressing was applied to both injuries and patient was directed follow-up with orthopedic clinic. Patient placed antibiotics and pain medication. Chart reviewed and patient discussed with midlevel. Agree with assessment and plan. Lab Data Radiology Impressions Hand X-Ray 05/11/21 09:47 Impression: 1. Amputation of the distal phalanx of the left second finger. 2. Bony injury to the distal half of the middle phalanx of the left second finger. 3. Soft tissue injury to the distal phalanx of the left thumb. Discharge Plan Discharge Patient Disposition: Home Clinical Impression: Laceration, Avulsion fracture, Avulsion of skin of finger without complication Condition: Stable Prescriptions: New hydrocodone-acetaminophen 5-325 mg tablet 1 tab PO TID PRN (Reason: pain) Qty: 14 0RF cephalexin 500 mg capsule 500 mg PO Q8H 7 Days Qty: 21 0RF Discontinued amoxicillin-pot clavulanate [Augmentin] 500-125 mg tablet 1 tab PO TID Qty: 15 0RF No Action acetaminophen [Tylenol Extra Strength] 500 mg tablet 1,000 mg PO QID PRN (Reason: Pain) 0RF carvedilol [Coreg] 6.25 mg tablet 6.25 mg PO BID 0RF Rx Instructions: must administer with a meal/food clopidogrel [Plavix] 75 mg tablet 75 mg PO DAILY 0RF gabapentin 100 mg capsule 100 mg PO TID 0RF melatonin 3 mg capsule 3 mg PO BEDTIME 0RF rosuvastatin 40 mg tablet 40 mg PO DAILY 0RF cholecalciferol (vitamin D3) [Vitamin D3] 50 mcg (2,000 unit) capsule 50 mcg PO QAM 0RF nitroglycerin [Nitrostat] 0.4 mg tablet, sublingual 0.4 mg sublingual Q5M PRN (Reason: chest pain) Qty: 50 2RF Rx Instructions: do not exceed 3 doses per episode Tremfya 100 mg/mL auto-injector 100 mg SUBCUT .q8 weeks Qty: 1 3RF Rx Instructions: Maintenance: inject subcutaneous every 8 weeks following loading dose Entresto 97-103 mg tablet 1 tab PO BID Qty: 180 3RF Rx Instructions: Dose increased aspirin 81 mg Tablet,Delayed Release (Dr/Ec) 81 mg PO QAM 0RF Zetia 10 mg tablet 10 mg PO DAILY 0RF Rx Instructions: pt states he is unsure if he takes this medication-this medication is [place] isosorbide mononitrate 30 mg Tablet Extended Release 24 Hr 30 mg PO DAILY Qty: 30 0RF pantoprazole 40 mg Tablet,Delayed Release (Dr/Ec) 40 mg PO DAILY Qty: 30 0RF Discharge Orders: Discharge ED (Routine); Ordered 05/11/21 Ordered By: Issa Carlisle Referrals: Hari Cuellar DO [Primary Care Provider] - Discharge Diet: Usual diet Discharge Activity: Increase activity as tolerated Patient Instructions: Care For Your Stitches (ED), Laceration (ED) Activity Restrictions/Additional Instructions: Follow-up with medical provider as directed. Take medications as prescribed. Return to the ER or your medical provider if condition worsens. Please read and understand discharge instructions. If any questions ask please. Hospital will contact you with appointment for orthopedic clinic for follow-up. Sutures need to be removed in 7 days. Can use Vaseline to help keep wound moist to help with wound care. Coding Level of Care Code ED Motor Vehicle Emissions Inspector for Rod Fwd Exam Expanded Problem Focused
--- NOTE | 2021-05-11 10:49 | PC.NURSE ---
left thumb laceration and left first finger abrasion covered with telfa bandage and secured with gauze wrap.
[2021-05-11 11:02] VITALS: BP 128/55; PULSE 64; RESP 15; O2SAT 98
--- NOTE | 2021-05-22 08:02 | DCPLANNER ---
late entry - business line manager had message to schedule a follow up appointment for patient with ortho. business line manager called ortho, spoke with Mandy, gave clinic patients information. Patient had a follow up appointment scheduled for 05.22.21 at 8:[address] Tucker - patient did attend appointment.
== END 2021-05-11 11:02 | disposition home or self-care (01) ==
PROVIDERS: Emergency Provider Nurse Practitioner Family; PCP Emergency Medicine Emergency Medical Services
DX: S68.121A Partial traumatic metacarpophalangeal amputation of left index finger, initial encounter (principal); S62.621A Displaced fracture of middle phalanx of left index finger, initial encounter for closed fracture; S61.012A Laceration without foreign body of left thumb without damage to nail, initial encounter; S61.201A Unspecified open wound of left index finger without damage to nail, initial encounter; Z79.02 Long term (current) use of antithrombotics/antiplatelets; Z79.82 Long term (current) use of aspirin; I25.10 Atherosclerotic heart disease of native coronary artery without angina pectoris; I11.0 Hypertensive heart disease with heart failure; I50.9 Heart failure, unspecified; E78.5 Hyperlipidemia, unspecified; W27.0XXA Contact with workbench tool, initial encounter
CPT/HCPCS: 12002; 73130; 99282; A6446

== ENCOUNTER → 2021-06-28 13:33 | Outpatient (BNVA) | payer OTHER, SELFPAY | PROVIDERS: PCP Emergency Medicine Emergency Medical Services; Visit Provider Internal Medicine Cardiovascular Disease | DX: I25.10 Atherosclerotic heart disease of native coronary artery without angina pectoris (principal); I25.5 Ischemic cardiomyopathy; I34.0 Nonrheumatic mitral (valve) insufficiency; E78.5 Hyperlipidemia, unspecified; I11.0 Hypertensive heart disease with heart failure; I50.22 Chronic systolic (congestive) heart failure; Z79.82 Long term (current) use of aspirin | CPT/HCPCS: 99213; 99214 ==

== ENCOUNTER → 2021-12-27 15:23 | Outpatient (BNVA) | payer OTHER, SELFPAY | PROVIDERS: PCP Emergency Medicine Emergency Medical Services; Visit Provider Internal Medicine Cardiovascular Disease | DX: I25.5 Ischemic cardiomyopathy (principal); I25.10 Atherosclerotic heart disease of native coronary artery without angina pectoris; I34.0 Nonrheumatic mitral (valve) insufficiency; E78.5 Hyperlipidemia, unspecified; Z87.891 Personal history of nicotine dependence; I11.0 Hypertensive heart disease with heart failure; I50.9 Heart failure, unspecified | CPT/HCPCS: 99214 ==

== ENCOUNTER 2022-02-13 09:46 | Outpatient (CLI) | payer OTHER, SELFPAY ==
--- NOTE | 2022-02-13 10:15 | USCV_ITS ---
Israel Shaw Age: 77 Gender: M : 1945 Exam Date: 02/13/2022 10:00 Ordering Phys: Cesar Urbina MD ([email or web address]) Technologist: Briseida Ellis [place] [facility] [place]: cardiomyopathy BP: 126 / 88 HR: 39 Rhythm: Sinus Technical Quality: Adequate MEASUREMENTS (Male / Female) Normal Values 2D ECHO LV Diastolic Diameter PLAX 6.9 cm 4.2 - 5.9 / 3.9 - 5.3 cm LV Systolic Diameter PLAX 6.2 cm IVS Diastolic Thickness 0.6 cm 0.6 - 1.0 / 0.6 - 0.9 cm IVS Systolic Thickness 0.6 cm LVPW Diastolic Thickness 0.9 cm 0.6 - 1.0 / 0.6 - 0.9 cm LVPW Systolic Thickness 1.3 cm LVOT Diameter 2.1 cm LV Ejection Fraction 2D Teich 22.0 % LV Ejection Fraction MOD 2C 36.4 % LV Ejection Fraction 2C AL 36.2 % LA Diameter 3.2 cm LA Width 3.8 cm LA Height 5.5 cm RA Width 3.6 cm RA Height 3.3 cm Aorta at Sinotubular Diameter 3.4 cm IVC Diameter 1.4 cm M-MODE MV E Point Septal Separation 3.3 cm DOPPLER AV Peak Velocity 134.0 cm/s LVOT Peak Velocity 76.0 cm/s AV Area Cont Eq vti 1.7 cm squared AV Area Cont Eq pk 2.1 cm squared MV E' Velocity 8.0 cm/s TR Peak Velocity 92.0 cm/s TR Peak Gradient 3.4 mmHg Right Atrial Pressure 3.0 mmHg Pulmonary Artery Systolic Pressu 6.4 mmHg PV Peak Velocity 79.7 cm/s RV Acceleration Time 0.1 s RV Ejection Time 0.3 s RV AcT/ET 0.3 FINDINGS Left Ventricle Dilated left-ventricular with moderate diffuse hypokinesia. LV ejection fraction of 36.4% Right Ventricle The right ventricle is normal in size and function. Right Atrium The right atrium is normal in size. Left Atrium Mildly increased left atrial size. Mitral Valve Moderate mitral valve regurgitation. Aortic Valve Thickened aortic valve. Mild aortic valve regurgitation. Tricuspid Valve Trace tricuspid valve regurgitation. Pulmonic Valve Pulmonic valve not well visualized. Pericardium Normal pericardium without effusion. Aorta Normal aortic annulus size. IVC The inferior vena cava appears normal. CONCLUSIONS Dilated left-ventricular with moderate diffuse hypokinesia. LV ejection fraction of 36.4% (by MOD) Mildly increased left atrial size. Moderate mitral valve regurgitation. Estimated pulmonary artery peak systolic pressure within normal limits. Compared to the study from 03/08/2021, there is slight increase in the LV ejection fraction from 33% to 36.4% Dr Cesar Urbina MD [facility] (Electronically Signed) Final Date: 13 February 2022 17:40 S
== END 2022-02-13 09:47 | disposition home or self-care (01) ==
LOC: RAD 09:47
PROVIDERS: PCP Emergency Medicine Emergency Medical Services; Visit Provider Internal Medicine Cardiovascular Disease
DX: I25.5 Ischemic cardiomyopathy (principal); I34.0 Nonrheumatic mitral (valve) insufficiency
CPT/HCPCS: 93306

== ENCOUNTER → 2022-07-15 15:06 | Outpatient (BNVA) | payer OTHER, SELFPAY | PROVIDERS: PCP Emergency Medicine Emergency Medical Services; Visit Provider Internal Medicine Cardiovascular Disease | DX: I11.0 Hypertensive heart disease with heart failure (principal); I50.9 Heart failure, unspecified; I25.10 Atherosclerotic heart disease of native coronary artery without angina pectoris; I25.5 Ischemic cardiomyopathy; I34.0 Nonrheumatic mitral (valve) insufficiency; E78.5 Hyperlipidemia, unspecified; Z87.891 Personal history of nicotine dependence | CPT/HCPCS: 99214 ==

== ENCOUNTER 2022-08-23 10:23 | Outpatient (CLI) | payer OTHER, SELFPAY ==
[2022-08-23 11:16] LABS: Basophils % 0.4 %; Eosinophils # 0.1 10^3/uL (0.0-0.8); Eosinophils % 1.1 %; Hematocrit 49.7 % (42.0-52.0); Lymphocytes # 1.7 10^3/uL (0.8-4.8); Lymphocytes % 23.4 %; Mean Corpuscular HGB Conc 34.2 g/dL (30.0-36.0); Mean Corpuscular Hemoglobin 31.1 pg (28.0-34.0); Mean Platelet Volume 8.8 fL (7.4-10.4); Monocytes # 0.6 10^3/uL (0.2-0.9); Monocytes % 8.5 %; Neutrophils # 4.67 10^3/uL (1.8-7.7); Neutrophils % 66.2 %; Nucleated Red Blood Cells % 0 %; Platelet Count 276 10^3/cmm (130-400); Red Blood Count 5.46 10^6/uL (4.1-5.3); Red Cell Distribution Width 12.9 % (12.1-15.1); White Blood Count 7.1 10^3/uL (4.0-10.0)
[2022-08-23 11:36] LABS: Alanine Aminotransferase 22 U/L (0-41); Albumin Level 4.3 g/dL (3.5-5.2); Alkaline Phosphatase 103 U/L (40-130); Anion Gap 16.2 (5-19); Aspartate Amino Transferase 20 U/L (0-40); Blood Urea Nitrogen 10 mg/dL (8-23); Calcium 9.4 mg/dL (8.5-10.5); Carbon Dioxide 24 mmol/L (22-29); Chloride 102 mmol/L (98-107); Glucose 90 mg/dL (65-115); Osmolality Calculated 285 mOsm/kg (285-295); Potassium 4.2 mmol/L (3.5-5.1); Sodium 138 mmol/L (136-145); Total Bilirubin 0.4 mg/dL (0.15-1.2); Total Protein 7.3 g/dL (6.6-8.7)
[2022-08-23 11:50] LABS: HIV 1 & 2 Antibody Non-Reactive (Non-Reactiv); HIV 1 & 2 Antigen Non-Reactive (Non-Reactiv)
[2022-08-23 11:57] LABS: Hepatitis A Antibody IgM Non-Reactive (Nonreactive); Hepatitis B Surface AB 11.9 (11.5-1000); Hepatitis B Surface Antigen Non-Reactive (Nonreactive); Hepatitis C Virus Antibody Non-Reactive (Nonreactive)
[2022-08-23 13:29] LABS: Hepatitis B Core AB, Total Reactive (Nonreactive)
[2022-08-27 13:20] LABS: Quantiferon Mitogen >10.00 IU/mL; Quantiferon Nil 0.02 IU/mL; Quantiferon Plus TB1 0.01 IU/mL; Quantiferon Plus TB2 <0.00 IU/mL; Quantiferon TB Gold NEGATIVE (NEGATIVE)
== END 2022-08-23 10:24 | disposition home or self-care (01) ==
LOC: LAB 10:27
PROVIDERS: PCP Emergency Medicine Emergency Medical Services; Visit Provider Dermatology
DX: L40.0 Psoriasis vulgaris (principal); Z79.899 Other long term (current) drug therapy; L82.1 Other seborrheic keratosis
CPT/HCPCS: 36415; 80053; 85025; 86480; 86705; 86706; 86709; 86803; 87340; 87806; 99214

== ENCOUNTER → 2023-01-27 08:23 | Outpatient (BNVA) | payer OTHER, SELFPAY | PROVIDERS: PCP Emergency Medicine Emergency Medical Services; Visit Provider Nurse Practitioner Family | DX: I25.5 Ischemic cardiomyopathy (principal); I25.10 Atherosclerotic heart disease of native coronary artery without angina pectoris; Z86.79 Personal history of other diseases of the circulatory system | CPT/HCPCS: 99214 ==

== ENCOUNTER → 2023-02-13 12:48 | Outpatient (BNVA) | payer OTHER, SELFPAY | PROVIDERS: PCP Emergency Medicine Emergency Medical Services; Visit Provider Dermatology | DX: L40.0 Psoriasis vulgaris (principal) | CPT/HCPCS: 99214 ==

== ENCOUNTER → 2023-07-30 16:10 | Outpatient (BNVA) | payer OTHER, SELFPAY | PROVIDERS: PCP Emergency Medicine Emergency Medical Services; Visit Provider Internal Medicine Cardiovascular Disease | DX: R07.9 Chest pain, unspecified (principal); I25.5 Ischemic cardiomyopathy; I34.0 Nonrheumatic mitral (valve) insufficiency; E78.5 Hyperlipidemia, unspecified; Z87.891 Personal history of nicotine dependence; R94.31 Abnormal electrocardiogram [ECG] [EKG] | CPT/HCPCS: 93005; 99214 ==

== ENCOUNTER → 2024-01-27 14:02 | Outpatient (BNVA) | payer OTHER, SELFPAY | PROVIDERS: PCP Emergency Medicine Emergency Medical Services; Visit Provider Internal Medicine Cardiovascular Disease | DX: I25.10 Atherosclerotic heart disease of native coronary artery without angina pectoris (principal); I25.5 Ischemic cardiomyopathy; I34.0 Nonrheumatic mitral (valve) insufficiency; E78.5 Hyperlipidemia, unspecified; Z86.79 Personal history of other diseases of the circulatory system; R06.02 Shortness of breath | CPT/HCPCS: 36415; 80048; 83880; 99214 ==

== ENCOUNTER 2024-02-20 10:58 | Outpatient (CLI) | payer OTHER, SELFPAY ==
--- NOTE | 2024-02-20 11:15 | USCV_ITS ---
Israel Shaw Age: 79 Gender: M : 1945 Exam Date: 02/20/2024 11:27 Ordering Phys: Cesar Urbina MD ([email or web address]) Technologist: CT Exam Location: [facility] – [place] Indication: BP: 146 / 79 HR: 78 Rhythm: Sinus Technical Quality: Adequate MEASUREMENTS (Male / Female) Normal Values 2D ECHO LVOT Diameter 2.2 cm LV Ejection Fraction MOD 4C 37.4 % LV Ejection Fraction MOD 2C 34.6 % LV Ejection Fraction 2C AL 36.4 % LA Diameter 5.4 cm RA Systolic Volume 4C AL 47.3 ml RA Systolic Volume 4C MOD 46.0 ml LA Sys Volume AL 84.4 cm cubed LA Sys Volume Index AL 38.6 cm cubed/m squared Aorta at Sinotubular Diameter 2.3 cm M-MODE LA Ao Ratio MM 2.1 DOPPLER AV Peak Velocity 125.0 cm/s LVOT Peak Velocity 62.0 cm/s AV Area Cont Eq vti 2.5 cm squared AV Area Cont Eq pk 1.9 cm squared MV Area PHT 3.9 cm squared Mitral E to A Ratio 1.2 TR Peak Velocity 220.5 cm/s TR Peak Gradient 19.4 mmHg TR Mean Velocity 177.0 cm/s TR Mean Gradient 13.3 mmHg TR Velocity Time Integral 66.8 cm TV Peak E Velocity 56.0 cm/s PV Peak Velocity 107.5 cm/s FINDINGS Left Ventricle Diffuse hypokinesia of the left ventricular end with an ejection fraction of 36%. Mildly dilated LV cavity.Grade III/IV diastolic dysfunction (restrictive filling pattern), severely elevated filling pressures. Right Ventricle Normal right ventricular size and systolic function. Right Atrium The right atrium is normal in size. Left Atrium Moderately increased left atrial size. Mitral Valve Possibly severe mitral regurgitation Aortic Valve [id number] aortic valve regurgitation. Tricuspid Valve No gross abnormalities noted Pulmonic Valve Pulmonic valve not well visualized. Pericardium Normal pericardium without effusion. Aorta Normal ascending aorta dimension. IVC Inferior vena cava not visualized. CONCLUSIONS Diffuse hypokinesia of the left ventricular end with an ejection fraction of 36%. Mildly dilated LV cavity.Grade III/IV diastolic dysfunction (restrictive filling pattern), severely elevated filling pressures. Possibly severe mitral regurgitation Segk-se-qrbvojff aortic valve regurgitation. Moderately increased left atrial size. There is no pericardial effusion. There are no intracardiac masses. Compared to the study from 02/13/2022, there is worsening of the mitral regurgitation Dr Cesar Urbina MD [facility] (Electronically Signed) Final Date: 26 February 2024 20:26 S
== END 2024-02-20 10:59 | disposition home or self-care (01) ==
LOC: RAD 10:59
PROVIDERS: PCP Nurse Practitioner Family; Visit Provider Internal Medicine Cardiovascular Disease
DX: I50.30 Unspecified diastolic (congestive) heart failure (principal); I50.1 Left ventricular failure, unspecified; I51.7 Cardiomegaly; I34.0 Nonrheumatic mitral (valve) insufficiency; I35.1 Nonrheumatic aortic (valve) insufficiency; R06.09 Other forms of dyspnea
CPT/HCPCS: 93306

== ENCOUNTER → 2024-05-18 12:17 | Outpatient (BNVA) | payer OTHER, SELFPAY | PROVIDERS: PCP Nurse Practitioner Family; Visit Provider Internal Medicine Cardiovascular Disease | DX: I25.118 Atherosclerotic heart disease of native coronary artery with other forms of angina pectoris (principal); Z79.01 Long term (current) use of anticoagulants; I48.91 Unspecified atrial fibrillation; I25.5 Ischemic cardiomyopathy; I34.0 Nonrheumatic mitral (valve) insufficiency; E78.5 Hyperlipidemia, unspecified; R06.02 Shortness of breath; I10 Essential (primary) hypertension; Z87.891 Personal history of nicotine dependence | CPT/HCPCS: 99214 ==

== ENCOUNTER 2024-06-07 06:56 | Outpatient (CLI) | payer OTHER, SELFPAY ==
[2024-06-07 07:19] VITALS: BP 149/82; PULSE 97; RESP 16; TEMP 36.7; O2SAT 96; BMI 29.5
--- NOTE | 2024-06-07 07:21 | XACV_ITS ---
Exam Room: 2 Ht: 178 cm Wt: 93 kg BSA: 2.17 m2 Gender: Male : 1945 Any Known Allergies: No known allergies Exam Priority: Routine Procedure(s): Procedure Description: Diagnostic procedure Procedure Description: Left Heart Catheterization Procedure Description: Right Heart Catheterization Procedure Description: Left ventriculography Procedure Description: O2 saturation Procedure Description: Coronary Angiography Carlitos SERRANO; Diagnostic Cath Status: Elective Diagnostic Findings * The left main is a medium caliber vessel which was found to have have around 40% tubular narrowing. * The left anterior descending artery is a medium caliber vessel with mild diffuse disease in the proximal and mid segment. Competitive flow was noted in the distal segment of the artery. * The left circumflex artery was found to have heavy diffuse calcification proximally and then he started liraglutide. * The right coronary artery appears to be tapering down towards the origin of the first RV branch. Right after the origin of the RV branch, the artery appears to be totally occluded. * The left internal mammary artery graft to the LAD was found to be widely patent. The distal left anterior descending artery was found to be widely patent. Minimal intimal irregularities were noted.. Conclusions 1. 79-year-old white male with a history of atherosclerotic heart diseas, status post two-vessel coronary bypass surgery, presenting with progressive shortness of breath. He was found to have an LV ejection fraction of 36%. Moderate-severe mitral regurgitation was noted. There was worsening of the mitral regurgitation and LV systolic function, compared to the previous echocardiogram. To further evaluate his coronary arteries as well as the hemodynamics, and right and left heart catheterization with right and left coronary angiogram, graft angiogram and LV gram was recommended. The findings are as follows. 2. Left main was found to have 40% diffuse narrowing. Left left anterior descending artery had a competitive blood flow distally. 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 Patent REY to the LAD. No venous grafts are visualized. LV ejection fraction 35 to 40%. LVEDP 26 mmHg. 3. The right atrial pressure was 12, RV pressure 50/8, PA pressure of 60/29 with a mean of 37 and a pulmonary capillary wedge pressure was 27. Diagnostic RX Recommendation: medical therapy and/or counseling LV EDP: 26 mmHg Ventriculography Ejection Fraction: 35.0 % Left Ventriculography Findings: * Left-ventricular cavity was found to be mildly dilated. There was diffuse hypokinesia of the left ventricle. LV ejection fraction was around 35 to 40%. Moderate mitral regurgitation was noted. LVEDP was 26 mm of Hg. Pressures Phase:Rest AO : 137 / 57 ( 82 ) @ 10:22:00 AM 139 / 64 ( 94 ) @ 10:27:00 AM 126 / 65 ( 90 ) @ 10:33:00 AM 117 / 72 ( 91 ) @ 10:36:00 AM 136 / 57 ( 89 ) @ 10:41:00 AM 137 / 50 ( 89 ) @ 10:41:00 AM LV : 134 / 0 / 25 @ 10:39:00 AM 132 / 2 / 24 @ 10:40:00 AM 134 / 2 / 26 @ 10:41:00 AM RV : 50 / 1 / 8 @ 10:12:00 AM PA : 60 / 29 ( 37 ) @ 10:10:00 AM RA : a wave = 10 v wave = 12 mean = 8 @ 10:13:00 AM a wave = 13 v wave = 12 mean = 11 @ 10:13:00 AM a wave = 11 v wave = 13 mean = 9 @ 10:13:00 AM a wave = 12 v wave = 12 mean = 10 @ 10:13:00 AM PCW : a wave = 34 v wave = 34 mean = 33 @ 10:11:00 AM a wave = 31 v wave = 35 mean = 27 @ 10:11:00 AM O2 Content Phase:Rest PA : O2 Content O2: 93.8 @ 10:22:00 AM Saturations Phase:Rest AO : 88 @ 10:41:00 AM RA : 68 @ 10:33:00 AM RV : 67 @ 10:36:00 AM PA : 94 @ 10:22:00 AM Flow Phase:Rest Qs : 6 @ 9:56:37 AM Valves Phase:DefaultPhase AV : 0.0 @ 9:56:37 AM AV Mean Gradient: 0.0 @ 9:56:37 AM Clinical Evaluation EBL: 5mL-10mL Procedural Details Pre-Procedure Time Out. Identified patient by full name and date of as verbalized by the patient/guarantor. Does the consent match the physician's order: Yes. Accurate & Complete Informed Consent: Yes. Inpatient/Outpatient History & Physical on Chart: Yes. If H&P is completed, is and addenduem needed: No; If yes, is the addendum complete: N/A. Visualize and Verify Site with Patient/Guarantor: N/A. Relevant Radiology Images available: Yes. Pre-op teaching completed and patient verbalized understanding. The risks, benefits, and alternatives of sedation and/or procedure were discussed by physician. The patient agrees to continue. Procedure started. Physician arrived. [facility] Clinical Fraility Score: 4: Vulnerable. Die Finisher Indications: Other. Chest Pain Symptom Assessment: Typical Angina Symptoms. Correct patient, site and procedure confirmed by cath team. Current diagnosis: Chest Pain. PERRLA. Strong, equal hand pressure test operator bilaterally. Lungs clear x 5 lobes. IV Site on Arrival: 20 gauge in the right anticubital. IV Site on Arrival: 20 gauge in the left anticubital. IV Fluids: 0.9% NaCl at KVO. 0 mL infused prior to energy systems laboratory director. Pre Procedural Pulses: bilateral dorsalis pedis was 3+. Pre Procedural Pulses: bilateral posterior tibial was 3+. Pre Procedural Pulses: bilateral radial was 3+. Oxygen started at 2liters/min via nasal canula. right groin was prepped with chloroprep then draped in the usual sterile fashion. left brachial was prepped with chloroprep then draped in the usual sterile fashion. Baseline sample Acquired. HR: 97 BPM. Admit Source: Out Patient. Physician scrubbed in. Immediate Pre-Procedure Time Out. Correct Patient: Yes; Correct Procedure: Yes; Correct Site: Yes; Correct Patient Position: Yes; Correct Supplies: Yes; Dried Flammable Prep: Yes; Blood Products Available: N/A;. Lidocaine 1% infiltrated to the right brachial. Sheath wire inserted through the right brachial IV catheter. IV catheter out OTW. [employer] MON catheter inserted. Bailey wire inserted through the catheter. Oximetry samples were obtained. Normal venous range: 60-85%. Normal arterial range: 95-100%. Pressure measurements obtained. [employer] out. Lidocaine 1% infiltrated to the right groin. Arterial access obtained with micropuncture set. A 5 libyan JL4 catheter in over wire. Multiple views taken of left coronary artery. Catheter removed over the standard wire. A 5 libyan JR4 catheter in over wire. Multiple views taken of right coronary artery. REY to LAD visualized. Catheter removed over the standard wire. A 5 libyan LCB catheter in over wire. Physician review of cine films. Catheter removed over the standard wire. A 5 libyan Angled Pig catheter in over wire. EDP Sample taken: LV 134/0,25; HR: 104 BPM; SpO2: 97%. LV gram performed in BUSCH @ 12 mL/second for a total of 36 mL. EDP Sample taken: LV 132/2,24; HR: 81 BPM; SpO2: 99%. Pullback taken: LV 134/2,26; AO 136/57(89); Mean: 0mmHg, Peak to Peak: 0mmHg, SEP: 18sec/min; HR: 81 BPM; SpO2: 98%. Catheter removed over the standard wire. A Suture was successful obtaining hemostatsis at the Right Femoral artery insertion site. A Manual Compression was successful obtaining hemostatsis at the Right Brachial Vein insertion site. Post Procedure: Pulses reassessed and unchanged. PERRLA. Strong, equal hand pressure test operator bilaterally. No VTE prophylaxis required. Medication's Wasted: Heparin = 4000 units. Medication's Wasted: Other = Fentanyl 50mcg Versed 1 mg. Total IV fluids: 60 mL. Vital chart was stopped. Complications: None. Estimated blood loss: 5mL-10mL. Responsiveness - Normal response to verbal stimuli; alert and oriented, PERRLA. Airway - Unaffected, no intervention required; spontaneous ventilation. Circulation: W/N/L, pulses unchanged. Nausea/Vomiting: No. Procedure completed. Patient transferred by bed to 1st floor. Access Site Site: Right Brachial Vein Sheath Size: 6 Fr Hemostasis Method: Manual Compression Hemostasis Success: Successful Site: Right Femoral artery Sheath Size: 6 Fr Hemostasis Method: Suture Hemostasis Success: Successful Procedure Medications Start: 9:05 AM Stop: 9:05 AM Medication: Versed Amount: 1 mg Route: I.V. Start: 9:05 AM Stop: 9:05 AM Medication: Fentanyl Amount: 50 mcg Route: I.V. Start: 9:20 AM Stop: 9:20 AM Medication: Heparin Amount: 1500 units Route: I.V. I, the attending physician, have reviewed and verified all procedure medications. Yes, all medications given per verbal order History/Risk Factors Hypertension: Yes Dyslipidemia: Yes Peripheral Arterial Disease (PAD): No Myocardial Infarction (NC): No Obesity: No Renal Disease: No Tobacco Use: Former Prior Interventions PCI: No CABG: Yes Valve Surgery: No Report Signatures Finalized by Dr Cesar Urbina MD [facility] on 06/07/2024 09:51 PM
[2024-06-07 07:37] LABS: Basophils % 0.4 %; Eosinophils # 0.1 10^3/uL (0.0-0.8); Hematocrit 45.3 % (37-53); Lymphocytes # 1.6 10^3/uL (0.8-4.8); Mean Corpuscular HGB Conc 32.9 g/dL (30-55); Mean Corpuscular Hemoglobin 30.3 pg (27-33); Mean Corpuscular Volume 92.3 fl (82-101); Mean Platelet Volume 8.9 fL (7.4-10.4); Monocytes # 0.6 10^3/uL (0.2-0.9); Monocytes % 8.6 %; Neutrophils # 4.56 10^3/uL (1.8-7.7); Neutrophils % 65.7 %; Nucleated Red Blood Cells % 0 %; Platelet Count 244 10^3/cmm (157-399); Red Blood Count 4.91 10^6/uL (3.85-5.65); Red Cell Distribution Width 13.6 % (12.1-15.1); White Blood Count 6.95 10^3/uL (3.29-11.43)
--- NOTE | 2024-06-07 07:55 | W.PM.OPSUD ---
Surgery/Procedure H&P Update DATE OF PROCEDURE: June 07, 2024 DATE H&P PERFORMED: 05/18/24 H&P UPDATE INFORMATION: I have reviewed H&P completed within last 30 days, I have examined patient prior to procedure and No changes to prior documentation PREOP DIAGNOSIS: ASHD/mitral valve regurgitation PRIMARY INDICATION FOR PROCEDURE: Abnormal Myocardial perfusion imaging, history of ASHD and coronary artery bypass surgery, cardiomyopathy, mitral valve regurgitation, moderate to severe PLANNED PROCEDURE: Operation Date: 06/07/24 08:30 Proposed Procedures p Cardiac Catheterization - RLHCw/wo LV & Dimitrios(Bilateral) - Cesar Urbina MD PATIENT REASSESSED PRIOR TO SEDATION, WITH NO CHANGE NOTED: Yes PHYSICAL EXAM: alert, oriented x 3, clear to auscultation bilaterally and regular rate & rhythm AIRWAY EVAL/ANESTHESIA PLAN: normal airway, see other exam findings, ASA III, Monitored Anesthesia, Local Anesthesia, Risks, benefits & alternatives of sedation and/or procedure discussed and Patient agrees to continue as planned
[2024-06-07 07:56] LABS: Anion Gap 12.9 (5-19); Blood Urea Nitrogen 10 mg/dL (8-23); Carbon Dioxide 25 mmol/L (22-29); Chloride 103 mmol/L (98-107); Glucose 97 mg/dL (65-115); Osmolality Calculated 283 mOsm/kg (285-295); Potassium 3.9 mmol/L (3.5-5.1); Sodium 137 mmol/L (136-145)
[2024-06-07] MEDS: aspirin 325 mg Tablet PO (08:02)
[2024-06-07] MEDS: diphenhydrAMINE 50 mg Capsule PO (08:02)
--- NOTE | 2024-06-07 08:14 | SUR.PREOP ---
HOME MEDICATION LIST Patient does not know what he takes or when he took his home medications. He says the list from Dr Garvey office is up to date. His brother reports that he is not the best at remembering to take his medications and is unaware of when he took anything either. Reported findings to Dr Urbina this morning. No new orders at this time.
[2024-06-07 09:34] LABS: Alveolar-Arterial Oxygen Gradi 6.4 mmHg (5-10); Arterial Blood Gas Hematocrit 47.2 % (42-52); Carboxyhemoglobin 1.3 %THgb (0.4-20.1); HGB O2 Sat 92.6 % (95-100); Methemoglobin < 0.0 % (0.4-1.5); Total Hemoglobin 15.4 g/dL (14-18)
[2024-06-07 09:41] LABS: Arterial Blood Gas Hematocrit 45.5 % (42-52); Blood Gas Sample Type Venous; Carboxyhemoglobin 1.3 %THgb (0.4-20.1); Methemoglobin 0.2 % (0.4-1.5); Total Hemoglobin 14.8 g/dL (14-18)
[2024-06-07 09:44] LABS: Arterial Blood Gas Hematocrit 45.2 % (42-52); Blood Gas Sample Type Venous; Carboxyhemoglobin 1.3 %THgb (0.4-20.1); HGB O2 Sat 66.7 % (95-100); Methemoglobin 0.1 % (0.4-1.5); Total Hemoglobin 14.8 g/dL (14-18)
[2024-06-07 09:48] LABS: Arterial Blood Gas Hematocrit 42.5 % (42-52); Carboxyhemoglobin 1.3 %THgb (0.4-20.1); HGB O2 Sat 87.5 % (95-100); Methemoglobin 0.1 % (0.4-1.5); Oxygen Device ROOM AIR; Total Hemoglobin 13.9 g/dL (14-18)
--- NOTE | 2024-06-07 09:58 | PC.NURSE ---
Patient transferred to CSU from fish farm laborer at 0958 with a right femoral sheath.
[2024-06-07 10:00] LABS: Blood Gas Sample Site AO; Blood Gas Sample Type AO
[2024-06-07 10:01] LABS: Oxygen Device RA
[2024-06-07 10:03] LABS: Oxygen Device RA
[2024-06-07 10:04] LABS: Oxygen Device RA
[2024-06-07 11:23] VITALS: BP 139/86; PULSE 82; RESP 22; TEMP 36.7; O2SAT 96
--- NOTE | 2024-06-07 13:00 | PC.NURSE ---
Patient's right femoral sheath at 1220. Manual pressure was held x 20 minutes. Hemastasis was unstained immediately. A dressing was applied of 4x4 and tegaderm. Patient tolerated well. Vitals were stable throughout. Patient is reeducated to move his right leg for the next 6 hours.
[2024-06-07 13:14] LABS: Blood Gas Sample Site Not specified; Blood Gas Sample Type Not specified
[2024-06-07 13:15] LABS: Blood Gas Sample Site Not specified
[2024-06-07 15:56] VITALS: BP 132/64; PULSE 82; RESP 22; O2SAT 97
[2024-06-07] MEDS: sacubitril/valsartan 24-26 mg Tablet 4 EACH PO (17:37)
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
[2024-06-07 19:23] VITALS: PULSE 82; RESP 25
[2024-06-07 21:00] VITALS: BP 132/64; PULSE 82; RESP 25; TEMP 36.7; O2SAT 97
== END 2024-06-07 20:30 | disposition home or self-care (01) ==
LOC: CCL 07:01 → CSU 09:56
PROVIDERS: PCP Nurse Practitioner Family; Visit Provider Internal Medicine Cardiovascular Disease
DX: I25.10 Atherosclerotic heart disease of native coronary artery without angina pectoris (principal); I25.84 Coronary atherosclerosis due to calcified coronary lesion; I25.82 Chronic total occlusion of coronary artery; I50.9 Heart failure, unspecified; I11.0 Hypertensive heart disease with heart failure; I42.9 Cardiomyopathy, unspecified; I34.0 Nonrheumatic mitral (valve) insufficiency; E78.5 Hyperlipidemia, unspecified; Z79.01 Long term (current) use of anticoagulants; Z82.49 Family history of ischemic heart disease and other diseases of the circulatory system; Z87.891 Personal history of nicotine dependence
CPT/HCPCS: 36415; 80048; 82810; 85025; 85730; 93461; 96374; 99152; 99153; C1751; C1769; C1887; C1894; J1644; J2250; J3010; J3490; J7030; J9999; Q0163; Q9967

== ENCOUNTER → 2024-06-14 07:24 | Outpatient (BNVA) | payer OTHER, SELFPAY | PROVIDERS: PCP Nurse Practitioner Family; Visit Provider Nurse Practitioner Family | DX: I10 Essential (primary) hypertension (principal); I25.10 Atherosclerotic heart disease of native coronary artery without angina pectoris; I25.5 Ischemic cardiomyopathy; I34.0 Nonrheumatic mitral (valve) insufficiency; Z87.891 Personal history of nicotine dependence | CPT/HCPCS: 99214 ==

== ENCOUNTER → 2024-07-29 09:16 | Outpatient (BNVA) | payer OTHER, SELFPAY | PROVIDERS: PCP Nurse Practitioner Family; Visit Provider Nurse Practitioner Family | DX: I11.0 Hypertensive heart disease with heart failure (principal); I50.9 Heart failure, unspecified; I25.10 Atherosclerotic heart disease of native coronary artery without angina pectoris; I25.5 Ischemic cardiomyopathy; I34.0 Nonrheumatic mitral (valve) insufficiency | CPT/HCPCS: 99213 ==

== ENCOUNTER → 2024-10-28 09:05 | Outpatient (BNVA) | payer OTHER, SELFPAY | PROVIDERS: PCP Nurse Practitioner Family; Visit Provider Nurse Practitioner Family | DX: L40.0 Psoriasis vulgaris (principal); L81.4 Other melanin hyperpigmentation | CPT/HCPCS: 99214 ==

== ENCOUNTER → 2024-12-06 11:07 | Outpatient (BNVA) | payer OTHER, SELFPAY | PROVIDERS: PCP Nurse Practitioner Family; Visit Provider Nurse Practitioner Family | DX: L40.0 Psoriasis vulgaris (principal) | CPT/HCPCS: 99214 ==

== ENCOUNTER 2024-12-25 10:20 | Emergency (ER) | payer OTHER, SELFPAY ==
[2024-12-25 10:25] VITALS: BP 128/73; PULSE 100; RESP 16; TEMP 36.7; O2SAT 96; BMI 25.8
--- NOTE | 2024-12-25 12:33 | XRR_ITS ---
PROCEDURE INFORMATION: Exam: XR Left Foot Exam date and time: 12/25/2024 12:38 PM Age: 79 years old Clinical indication: Edema; Location not specified; Additional info: Sudden onset lt foot pain/swelling; No known injury; Pain worse while weight bearing TECHNIQUE: Imaging protocol: Radiologic exam of the left foot. Views: 3 or more views. COMPARISON: No relevant prior studies available. FINDINGS: Bones/joints: No acute fracture or dislocation. Small plantar calcaneal enthesophyte. Soft tissues: Moderate soft tissue swelling along the dorsum of the foot. XR/XR foot LT min 3V* [id number] IMPRESSION: 1. No acute osseous findings. 2. Moderate dorsal soft tissue swelling.
--- NOTE | 2024-12-25 12:37 | W.ED.EXTPRO ---
HPI - Extremity Problem General: Chief complaint: Extremity Problem,Nontraumatic Stated complaint: R foot painful and swollen Time Seen by Provider: 12/25/24 12:12 History of Present Illness: Patient is a 72-year-old gentleman that states he has had a right painful foot with edema x 3 days. He did not injure his foot. His edema is concentrated in his lower leg and his foot. Pain is on and off. It is not constant. No history of gout. Selected Entries 12/25/24 10:25 ED Triage Comment PT PRESENTS WITH L EFT FOOT PAIN AND SWELLING. PATIENT DENIES TRAUMA OR I NJURY. PATIENT AMB ULATORY. PATIENT S TATES I CAN STEP JUST RIGHT AND IT WILL HURT. PATIEN T DOES HAVE HX OF CHF. PATENT AIRWAY , UNLABORED RESPIR ATIONS, AND APPROP RIATE COLOR. Associated symptoms: Deny chest pain, fever(s) or rash Related Data Home Medications ?Medication ?Instructions ?Recorded ?Confirmed acetaminophen 500 mg tablet 1,000 mg PO QID PRN Pain 02/08/20 07/29/24 (Tylenol Extra Strength) clopidogrel 75 mg tablet 75 mg PO DAILY 01/27/24 07/29/24 guselkumab 100 mg/mL subcutaneous mg SUBCUT 01/27/24 07/29/24 auto-injector (Tremfya) Previous Rx's ?Medication ?Instructions ?Recorded nitroglycerin 0.4 mg sublingual 0.4 mg sublingual Q5M PRN chest 02/09/20 tablet (Nitrostat) pain #50 tabs rosuvastatin 40 mg tablet 40 mg PO DAILY #90 tabs 01/27/23 sacubitril 97 mg-valsartan 103 mg 1 tab PO BID #180 tabs 01/27/23 tablet (Entresto) spironolactone 25 mg tablet 25 mg PO DAILY #90 tabs 02/03/24 empagliflozin 10 mg tablet 10 mg PO DAILY #30 tabs 06/07/24 (Jardiance) Allergies Allergy/AdvReac Type Severity Reaction Status Date / Time No Known Allergies Allergy Verified 07/29/24 10:25 Review of Systems General: Reports: 10 or more systems reviewed and unremarkable except in HPI and below Const: Denies: fever(s) or chills Card: Reports: swelling of feet/ankles and dyspnea on exertion; Denies: chest pain, palpitations, irregular heart rhythm, lightheadedness, syncope or pre-syncope Resp: Denies: dyspnea, productive cough or non-productive cough GI: Denies: abdominal pain, nausea, vomiting or hematochezia Musc: Reports: extremity pain, extremity swelling, joint pain, joint swelling, joint stiffness, limited range of motion and muscle cramps; Denies: neck pain, back pain, joint redness or joint warmth Skin/Breast: Denies: rash or pruritus Neuro: Denies: headache(s) or numbness in extremities Psych: Denies: anxiety or depression Jhonatan/Lymph: Denies: easy bleeding PFSH ED PFSH: Medical History (Updated 12/25/24 @ 13:40 by ARNIE Joe) Psoriasis Ischemic cardiomyopathy An EKG was done today which revealed a sinus rhythm with recurrent PVCs. Possible left atrial enlargement. Poor R wave progression. Some nonspecific T wave changes in the high lateral leads. Atherosclerotic heart disease of [place] coronary artery without angina pectoris Hx of coronary atherosclerosis History of hypertension Hx of hyperlipidemia History of hypothyroidism Hx of heart failure Hx of chest pain Hx of congestive heart failure Surgical History History of open heart surgery Hx of appendectomy Family History Father CAD (coronary artery disease) Mother CAD (coronary artery disease) Grandmother CAD (coronary artery disease) Family/Other CAD (coronary artery disease) Brother CAD (coronary artery disease) Sister CAD (coronary artery disease) Denies family history of Diabetes Clotting disorder Dementia Chronic kidney disease (CKD) Suicide Anesthesia complication Bleeding disorder Lung disease Cancer Stroke Social History Smoking and tobacco/nicotine status: former use of tobacco/nicotine Alcohol intake: former Substance/Drug Use: never Physical Exam Const: COMMON NORMALS: no acute distress, average body habitus and patient oriented x3 HENMT: COMMON NORMALS: normocephalic and atraumatic HEAD & SCALP: normocephalic and atraumatic Neck/C-Spine: COMMON NORMALS: full ROM and no lymphadenopathy Lymph: LYMPHATIC: no lymphadenopathy noted Chest: COMMONS NORMALS: normal inspection of the chest and normal palpation of entire chest wall Resp: COMMON NORMALS: normal respiratory effort, No retractions and clear to auscultation bilaterally AUSCULTATION: clear to auscultation bilaterally Cardio: COMMON NORMALS: regular rate and regular rhythm RATE: regular rate RHYTHM: regular rhythm GI: COMMON NORMALS: Normal to inspection, nondistended, normoactive bowel sounds present, Soft to palpation, non-tender and No hepatosplenomegaly present PALPATION: Yes Soft to palpation and Yes No hepatosplenomegaly present : COMMON NORMALS: Yes no CVA tenderness BLADDER/KIDNEY EXAM: Yes no CVA tenderness Back/Pelvis: COMMON NORMALS: no CVA tenderness Extremity: NARRATIVE EXTREMITY EXAM: Slight coolness, pedal pulse intact +1. Pedal edema only +2?3. No specific areas of tenderness. Full range of motion. Neuro: COMMON NORMALS: patient oriented x3 Psych: COMMON NORMALS: mental status grossly normal and Normal thought process present THOUGHT PROCESS: Normal thought process present Course Vital Signs: Vital signs: Vital Signs Temperature 98.1 F 12/25/24 10:25 Pulse Rate 100 12/25/24 10:25 Respiratory Rate 16 12/25/24 10:25 Blood Pressure 128/73 12/25/24 10:25 Pulse Oximetry 96 12/25/24 10:25 Oxygen Delivery Me thod Room Air 12/25/24 10:25 MDM - Extremity (Nontraumatic) Medical Decision Making Patient is a quite pleasant 79-year-old gentleman with history of CAD, DM, without notable injury and left foot pain. He has localized edema to his lower leg, and foot. On examination per x-ray, there was no acute osseous findings, however the metatarsal head of #4, has irregularity consistent with possible injury/trauma. I have placed him in a hard shoe, and will send him to podiatry for follow-up to ensure that he has relief of these issues. Recommended Tylenol and ibuprofen for pain. Lab Data Radiology Impressions Foot X-Ray 12/25/24 12:33 IMPRESSION: 1. No acute osseous findings. 2. Moderate dorsal soft tissue swelling. Venous Duplex 12/25/24 13:04 IMPRESSION: No evidence of deep vein thrombosis. All radiology interpretation(s) finalized by discharge Discharge Plan Discharge Patient Disposition: Home Clinical Impression: Closed fracture of head of metatarsal bone of left foot Qualifiers: Encounter type: initial encounter Qualified Code(s): S92.302A - Fracture of unspecified metatarsal bone(s), left foot, initial encounter for closed fracture Condition: Stable Prescriptions: No Action acetaminophen [Tylenol Extra Strength] 500 mg tablet 1,000 mg PO QID PRN (Reason: Pain) rosuvastatin 40 mg tablet 40 mg PO DAILY Qty: 90 3RF Entresto 97-103 mg tablet 1 tab PO BID Qty: 180 3RF clopidogrel 75 mg tablet 75 mg PO DAILY Tremfya 100 mg/mL auto-injector SUBCUT nitroglycerin [Nitrostat] 0.4 mg tablet, sublingual 0.4 mg sublingual Q5M PRN (Reason: chest pain) Qty: 50 2RF Rx Instructions: do not exceed 3 doses per episode spironolactone 25 mg tablet 25 mg PO DAILY Qty: 90 3RF Jardiance 10 mg tablet 10 mg PO DAILY Qty: 30 5RF Discharge Orders: Discharge ED (Routine); Ordered 12/25/24 Ordered By: Essie Trotter Referrals: Mary Squires APRN [Primary Care Provider, Family Practice] Kyle Ledezma DPM [Physician, Podiatry] - 4-7 days Discharge Diet: Usual diet Discharge Activity: Limit activity as instructed Patient Instructions: Fractures - Metatarsal, Patient Portal & Mateo Instructions Activity Restrictions/Additional Instructions: - Elevate, place compression hose on the left side - Tylenol and ibuprofen for pain - Follow-up with Dr. Ledezma, manufacturing production technician. - You will need to have your x-ray of your left foot repeated in 1 week. - The x-ray does not note a fracture, however your fourth (before you get to your toes on your foot) metatarsal head I see irregularity consistent with concern of fracture. - Your ultrasound is negative for a blood clot - Return to ED with worsening pain or edema. Thank you for choosing [facility] for your healthcare needs today. You have been screened and evaluated and felt safe for discharge. Health conditions do change or evolve sometimes and as such it is important that you follow up with your Primary Doctor to be re checked, 3-5 days is a general good time frame for follow up. You are always welcome to return to the ED for re assessment if your symptoms are worsening or you have new concerns Print Language: Albanian Coding Level of Care Code ED [employer] for Rod Osborn
--- NOTE | 2024-12-25 13:04 | USR_ITS ---
PROCEDURE INFORMATION: Exam: US Duplex Left Lower Extremity Veins, Limited Exam date and time: 12/25/2024 1:23 PM Age: 79 years old Clinical indication: Pain; Leg, lower; Left; Additional info: Pain, edema TECHNIQUE: Imaging protocol: Real-time duplex ultrasound of the left extremity with 2-D woo scale, color Doppler flow and spectral waveform analysis including responses to compression and other maneuvers (when performed) with image documentation. Limited exam focused on the left lower extremity veins. COMPARISON: CR (LOW EXM, ) 12/25/2024 12:38 PM FINDINGS: Left deep veins: Unremarkable. The common femoral, femoral, proximal profunda femoral and popliteal veins are patent without thrombus. Normal Doppler waveforms. Normal compressibility and/or augmentation response. Superficial veins: Greater saphenous vein at the saphenofemoral junction is patent without thrombus. Soft tissues: Unremarkable. US/[place] [id number] IMPRESSION: No evidence of deep vein thrombosis.
== END 2024-12-25 14:28 | disposition home or self-care (01) ==
PROVIDERS: Emergency Provider Physician Assistant; PCP Nurse Practitioner Family
DX: S92.302A Fracture of unspecified metatarsal bone(s), left foot, initial encounter for closed fracture (principal); Z79.02 Long term (current) use of antithrombotics/antiplatelets; Z87.891 Personal history of nicotine dependence; E78.5 Hyperlipidemia, unspecified; I25.10 Atherosclerotic heart disease of native coronary artery without angina pectoris; I11.0 Hypertensive heart disease with heart failure; I50.9 Heart failure, unspecified; X58.XXXA Exposure to other specified factors, initial encounter
CPT/HCPCS: 73630; 93971; 99284

== ENCOUNTER → 2025-01-05 10:33 | Outpatient (BNVA) | payer OTHER, SELFPAY | PROVIDERS: PCP Nurse Practitioner Family; Visit Provider Podiatrist Foot & Ankle Surgery | DX: M79.672 Pain in left foot (principal); M20.22 Hallux rigidus, left foot; R60.9 Edema, unspecified | CPT/HCPCS: 73630; 99204 ==

== ENCOUNTER 2025-01-11 16:15 | Inpatient (IN) | payer OTHER, SELFPAY ==
[2025-01-11] VITALS (42 sets, daily range): BP systolic 106–130; BP diastolic 68–111; PULSE 90–109; RESP 0–24; TEMP 35.5–36.2; O2SAT 89–100; BMI 25.0
--- NOTE | 2025-01-11 16:16 | XRR_ITS ---
PROCEDURE INFORMATION: Exam: XR Chest Exam date and time: 01/11/2025 4:26 PM Age: 79 years old Clinical indication: Pain; Angina pectoris; Additional info: Chest pain TECHNIQUE: Imaging protocol: Radiologic exam of the chest. Views: 1 view. COMPARISON: 1. CT angio chest PE protcl [id number] 03/07/2021 12:17 PM 2. CR XR chest 1V portable [id number] 03/07/2021 7:09 AM FINDINGS: Lungs: Minimal density lung bases, [id number]-[id number]-right may represent small amount of atelectasis or fibrotic change. No lobar pneumonia noted. Pleural spaces: Mild blunting of costophrenic angles suggesting small amount of pleural fluid, [id number]-right. No large effusion. No pneumothorax. Heart/Mediastinum: Heart appears mildly enlarged. Previous sternotomy again noted. Vasculature: Atherosclerotic calcification thoracic aorta again noted. Vascular pedicle appears within normal limits of size. Bones/joints: Some osteoarthrosis of shoulders. Some hypertrophic changes of the spine. Soft tissues: Superimposed chest leads. Other findings: No overt failure pattern demonstrated. XR/XR chest 1V portable [id number] IMPRESSION: Small pleural effusions suggested, [id number]-[id number]-right. Mild basilar lung opacities may represent some atelectasis or fibrotic change. No overt failure pattern demonstrated. Mild cardiomegaly with previous sternotomy.
--- NOTE | 2025-01-11 16:16 | ECG_ITS ---
[facility] Test Date: 2025-01-11 Pat Name: Israel Shaw Department: Room: Gender: Male Clinical Safety Manager: : 1945 Requested By: Sarah Daly Order Number: [id number] West MD: Reinier Man M.D. Measurements Intervals [place] Rate: 102 P: 54 ID: [id number] QRS: -45 QRSD: 146 T: 115 QT: 382 QTc: 500 Interpretive Statements SINUS TACHYCARDIA POSSIBLE LEFT ATRIAL ENLARGEMENT [-0.1mV P-WAVE IN V1/V2] LEFT AXIS DEVIATION [QRS AXIS < -30] INTRAVENTRICULAR CONDUCTION DELAY [130+ ms QRS DURATION] Compared to ECG 07/30/2023 16:15:37 Ventricular premature complex(es) no longer present Electronically Signed On 01-12-2025 20:19:16 [employer]PERVISOR [employer] by Reinier Man M.D. [email or web address]
--- NOTE | 2025-01-11 16:16 | ED_ITS ---
HPI - Chest Pain 2 General: Chief Complaint: Chest Pain Stated Complaint: chest Pain Time Seen by Provider: 01/11/25 16:16 History of Present Illness: 79-year-old man with a history of dooley ry artery disease, ischemic cardiomyopathy, hypertension, hyperlipidemia, hypothyroidism and heart failure who presents to the emergency room by ambulance with chest pain. He reports pain everywhere. He causes a burning pain. Also sharp and stabbing. Also a dull ache. He reports the pain is a 6 at times. But sometimes it becomes very severe. On exam whenever the pain becomes severe he stops breathing and his oxygen saturations will drop. He is on 3 L nasal cannula and is not on oxygen at home. He complains of some shortness of breath. He says he feels very tired and keeps falling asleep. He appears sallow and pale. Related Data Home Medications ?Medication ?Instructions ?Recorded ?Confirmed acetaminophen 500 mg tablet 1,000 mg PO QID PRN Pain 1 04/10/19 01/05/25 (Tylenol Extra Strength) clopidogrel 75 mg tablet 75 mg PO DAILY 01/27/2407/25 guselkumab 100 mg/mL subcutaneous mg SUBCUT 01/27/24 1 03/07/24 auto-injector (Tremfya) Previous Rx's ?Medication ?Instructions ?Recorded nitroglycerin 0.4 mg sublingual 0.4 mg sublingual Q5M PRN chest 02/09/20 tablet (Nitrostat) pain #50 tabs rosuvastatin 40 mg tablet 40 mg PO DAILY #90 tabs 01/02 09/22 sacubitril 97 mg-valsartan 103 mg 1 tab PO BID #180 ta bs 01/27/23 tablet (Entresto) spironolactone 25 mg tablet 25 mg PO DAILY #90 tabs empagliflozin 10 mg tablet 10 mg PO DAILY #30 tabs 09/24 (Jardiance) Orthopedic shoes with custom #2 ea 01/05/25 orthotics with castro's extension to the left compression socks #6 ea 01/05/25 Allergies Allergy/AdvReac Type Severity Reaction Status Date / Time No Known Allergies Allergy Verified 01/11/25 16:30 Review of Systems 2 Narrative: Constitutional symptoms: Negative except as documented in HPI. Skin symptoms: Negative except as documented in HPI. Eye symptoms: Negative except as documented in HPI. ENMT symptoms: Negative except as documented in HPI. Respiratory symptoms: Negative except as documented in HPI. Cardiovascular symptoms: Negative except as documented in HPI. Gastrointestinal symptoms: Negative except as documented in HPI. Genitourinary symptoms: Negative except as documented in HPI. Musculoskeletal symptoms: Negative except as documented in HPI. Neurologic symptoms: Negative except as documented in HPI. Psychiatric symptoms: Negative except as documented in HPI. Endocrine symptoms: Negative except as documented in HPI. PFSH ED 2 PFSH: Medical History (Updated 01/11/25 @ 20:46 by Sarah Goodman MD) Psoriasis Ischemic cardiomyopathy An EKG was done today which revealed a sinus rhythm with recurrent PVCs. Possible left atrial enlargement. Poor R wave progression. Some nonspecific T wave changes in the high lateral leads. Atherosclerotic heart disease of [place] coronary artery without angina pectoris Hx of coronary atherosclerosis History of hypertension Hx of hyperlipidemia History of hypothyroidism Hx of heart failure Hx of chest pain Hx of congestive heart failure Surgical History History of open heart surgery Hx of appendectomy Family History Father CAD (coronary artery disease) Mother CAD (coronary artery disease) Grandmother CAD (coronary artery disease) Family/Other CAD (coronary artery disease) Brother CAD (coronary artery disease) Sister CAD (coronary artery disease) Denies family history of Diabetes Clotting disorder Dementia Chronic kidney disease (CKD) Suicide Anesthesia complication Bleeding disorder Lung disease Cancer Stroke Social History Smoking and tobacco/nicotine status: former use of tobacco/nicotine Alcohol intake: former Substance/Drug Use: never Physical Exam 2 Narrative: EXAM NARRATIVE: General: Somnolent at times, patient appears ill Skin: Warm, dry. Sallow, pale Head: Normocephalic, atraumatic. Neck: Supple, trachea midline. Eye: Extraocular movements are intact. Ears, nose, mouth and throat: mucosa moist. Cardiovascular: Regular, Normal peripheral perfusion. . Some swelling and redness of his legs. Respiratory: Lungs are clear to auscultation, respirations are non-labored, breath sounds are equal, Symmetrical chest wall expansion. Patient will be tachypneic at times and then will hold his breath at times. Diminished breath sounds posteriorly Gastrointestinal: Soft, Nontender, Non distended Musculoskeletal: Normal ROM, no deformity. Neurological: oriented, No focal neurological deficit observed. Psychiatric: Cooperative, appropriate mood & affect. Course 2 Vital Signs: Vital signs: Vital Signs Temperature 96 F L 01/11/25 16:16 Pulse Rate 93 01/11/25 20:15 Respiratory Rate 14 01/11/25 20:15 Blood Pressure 115/80 01/11/25 20:15 Pulse Oximetry 96 01/11/25 20:15 Oxygen Delivery Me thod Nasal Cannula 01/11/25 20:15 Oxygen Flow Rate 3 01/11/25 20:15 MDM - Chest Pain Medical Decision Making Medical decision making: Patient's reason for coming to the emergency room Social determinants: Patient is retired. I reviewed the patient's medical record. 79-year-old man with a history of coronary artery disease, ischemic cardiomyopathy, hypertension, hyperlipidemia, hypothyroidism and heart failure I reviewed the patient's current home meds Patient is on Plavix but no other anticoagulation. Alternate historians: Differential diagnosis for patient with chest pain includes but is not limited to and based on the above HPI, review of systems and physical exam: Pneumonia. unstable angina. angina. Acute coronary syndrome / DC. Pulmonary embolism. Costochondritis / musculoskeletal. Pleurisy. Pericarditis. Esophageal spasm. Pancreatitis. Cholecystitis. Orders placed to evaluate differential diagnosis based on the above differential, HPI and physical exam EKG: Time 1622. Rate 102. LVH. Sinus tachycardia, No ST-T changes, no ectopy, normal TN & QRS intervals, This was reviewed and interpreted by myself the ER physician 1625. Chest x-ray: Small pleural effusions, mild basilar lung opacities which may be atelectasis or fibrotic changes. No overt failure. Mild cardiomegaly. Sternotomy. This was reviewed and interpreted by myself the emergency room physician. I also reviewed the radiology report. Lab Review: Laboratory results were reviewed and interpreted by myself the emergency room physician. No leukocytosis. No anemia. BUN/creatinine are quite elevated at 48 and 2.2 over his baseline. Sodium is a little low at 130. Bicarb is low at 17. AST and ALT are somewhat elevated along with an elevated bilirubin. No evidence of obstructive process or biliary tree dilatation on CT scan. Initial troponin is around 60 and repeat is still around 60 with no significant delta. proBNP only was very elevated over his baseline at 28,[address] of the chest abdomen pelvis/aortogram: Multiple findings. No aortic dissection. No PE. Bilateral pleural effusions. Pulmonary venous congestion. No pneumonia. Liver appears grossly abnormal. Gallbladder and biliary ducts appear normal. Pancreas is unremarkable. This was reviewed and interpreted by myself the emergency room physician. I also reviewed the radiology report. Assessment of risk: Level of risk: This is a high risk patient. Elderly with multiple comorbidities and appears very ill today. Hospitalization considerations: Patient is being admitted. Reexamination: Patient appears quite a bit better at reexamination. Pain is still somewhat present but improved quite a bit. He now says it is more focal to the right side. He does not have any tenderness in his right upper quadrant. Consultation: I spoke with Dr. Parra who agrees to admission. Assessment and plan: Congestive heart failure with acute exacerbation Pleural effusions Chest pain Acute renal failure Liver congestion Transaminitis Hyperbilirubinemia ?Soft blood pressures had some tachycardia. No evidence for sepsis but the patient does appear to have multiorgan failure likely secondary to congestive heart failure. Holding on any interventions at this time. Other than having the patient on oxygen. -I discussed the patient with the hospitalist on-call who is admitting the patient. - Discussed findings and plan with patient. Answered any questions. - All laboratory values were reviewed and interpreted personally by myself, the ER physician - All imaging was reviewed and interpreted personally by myself, the ER physician. - Evaluation and treatment of this problem were appropriate in the emergency setting Lab Data 01/11/25 16:24 01/11/25 16:24 Radiology Impressions Chest X-Ray 01/11/25 16:16 IMPRESSION: Small pleural effusions suggested, [id number]-right. Mild basilar lung opacities may represent some atelectasis or fibrotic change. No overt failure pattern demonstrated. Mild cardiomegaly with previous sternotomy. Chest/Abdomen/Pelvis CTA 01/11/25 16:59 IMPRESSION: 1. No aneurysm or dissection demonstrated of the thoracic aorta. 2. No pulmonary thromboembolism. 3. Bilateral pleural effusions, suixl-efybssa-ceuh-left. 4. Findings suggest central pulmonary venous congestion. 5. No lobar pneumonia. 6. No lung mass. 7. Reactive lymph nodes. No obvious adenopathy noted in the chest. 8. Cardiomegaly. Previous sternotomy. 9. Probable hemangioma L4 body. Comparison with any older abdominal CT exams would be helpful. No gross destructive bony process noted. 10. Hypodense lesions of kidneys incompletely evaluated on this exam. Favor cysts; nonemergent renal ultrasound may be helpful for further evaluation. 11. Some fluid in presacral space of uncertain significance. No gross ascites. 12. No abscess noted in the abdomen or pelvis. 13. Atherosclerotic changes. No aneurysm or dissection demonstrated of the abdominal aorta. 14. No acute thrombus noted in the abdomen or pelvis. 15. No adenopathy noted in the abdomen or pelvis. 16. Scattered diverticula sigmoid colon without confirmation of acute diverticulitis. Laboratory Results WBC 7.43 10^3/uL (3.29-11.43) 01/11/25 16:24 RBC 5.44 10^6/uL (3.85-5.65) 01/11/25 16:24 Hgb 16.30 g/dL (11.27-16.99) 01/11/25 16:24 Hct 49.2 % (37-53) 01/11/25 16:24 MCV 90.4 fl (82-101) 01/11/25 16:24 MCH 30.0 pg (27-33) 01/11/25 16:24 MCHC 33.1 g/dL (30-55) 01/11/25 16:24 RDW 14.7 % (12.1-15.1) 01/11/25 16:24 Plt Count 221 10^3/cmm (157-399) 01/11/25 16:24 MPV 10.6 fL (7.4-10.4) H 01/11/25 16:24 Neut % (Auto) 81.8 % 01/11/25 16:24 Lymph % (Auto) 9.2 % 01/11/25 16:24 [place] % (Auto) 8.2 % 01/11/25 16:24 Eos % (Auto) 0.0 % 01/11/25 16:24 Baso % (Auto) 0.1 % 01/11/25 16:24 Neut # (Auto) 6.08 10^3/uL (1.8-7.7) 01/11/25 16:24 Lymph # (Auto) 0.7 10^3/uL (0.8-4.8) L 01/11/25 16:24 [place] # (Auto) 0.6 10^3/uL (0.2-0.9) 01/11/25 16:24 Eos # (Auto) 0.0 10^3/uL (0.0-0.8) 01/11/25 16:24 Baso # (Auto) 0.0 10^3/uL (0.0-0.1) 01/11/25 16:24 Nucleated RBC % (auto) 0 % 01/11/25 16: Nucleated RBCs # 0.0 /100WBC 01/11/25 16:24 PT 18.70 SECONDS (12.1-14.9) H 01/11/25 16:24 INR 1.46 (0.8-1.2) H 01/11/25 16:24 APTT 29.1 SECONDS (23.9-36.7) 01/11/25 16:24 Specimen Type Arterial 01/11/25 17:00 Sample Site Radial, right 01/11/25 17:00 ABG pH 7.29 (7.35-7.45) L 01/11/25 17:00 ABG pCO2 33.9 mmHg (35-45) L 01/11/25 17:00 ABG pO2 95.3 mmHg (80.0-100.0) 01/11/25 17:00 ABG PO2/FiO2 Ratio 238 01/11/25 17:00 ABG HCO3 16.3 mmol/L (22-26) L 01/11/25 17:00 ABG O2 Saturation 96.8 01/11/25 17:00 ABG Base Excess -9.1 mmol/L (-2.0-2.0) L 01/11/25 17:00 [place] Test Pos 01/11/25 17:00 A-a O2 Gradient 18.9 mmHg (5-10) H 01/11/25 17:00 Hematocrit 50.0 % (42-52) 01/11/25 17:00 Hgb O2 Saturation 95.8 % (95-100) 01/11/25 17:00 Carboxyhemoglobin 1.1 %THgb (0.4-20.1) 01/11/25 17:00 Methemoglobin 0.0 % (0.4-1.5) L 01/11/25 17:00 Total Hemoglobin 16.3 g/dL (14-18) 01/11/25 17:00 Sodium 131.0 mmol/L (131-143) 01/11/25 17:00 Potassium 4.7 mmol/L (3.5-5.0) 01/11/25 17:00 Glucose 143.0 mg/dL (70-115) H 01/11/25 17:00 Ionized Calcium 1.2 mmol/L (1.1-1.4) 01/11/25 17:00 O2 Delivery Device Nc 01/11/25 17:00 O2 Liters/Min 5.0 % 01/11/25 17:00 FiO2 40.0 % 01/11/25 17:00 Hearing Examiner ID Harshgerardo 01/11/25 17:00 Sodium 130 mmol/L (136-145) L 01/11/25 16:24 Potassium 4.9 mmol/L (3.5-5.1) 01/11/25 16:24 Chloride 95 mmol/L (98-107) L 01/11/25 16:24 Carbon Dioxide 17 mmol/L (22-29) L 01/11/25 16:24 Anion Gap 22.9 (5-19) H 01/11/25 16:24 BUN 48 mg/dL (8-23) H 01/11/25 16:24 Creatinine 2.2 mg/dL (0.7-1.2) H 01/11/25 16:24 GFR Calculation Not Reportable 01/11/25 16:24 Glucose 136 mg/dL (65-115) H 01/11/25 16:24 Calculated Osmolality 285 mOsm/kg (285-295) 01/11/25 16:24 Calcium 10.0 mg/dL (8.5-10.5) 01/11/25 16:24 Total Bilirubin 4.6 mg/dL (0.15-1.2) H 01/11/25 16:24 AST 143 U/L (0-40) H 01/11/25 16:24 ALT 182 U/L (0-41) H 01/11/25 16:24 Alkaline Phosphatase 193 U/L (40-130) H 01/11/25 16:24 Troponin T Baseline 65 ng/L (0-15) H 01/11/25 16:24 Troponin T 120 Minute 58.29 ng/L (0-15) H 01/11/25 18:03 Delta Troponin T -6.71 ABS# (0-10) L 01/11/25 18:03 NT-Pro-B Natriuret Pep 55217 pg/mL (0-450) H 01/11/25 16:24 Total Protein 6.6 g/dL (6.6-8.7) 01/11/25 16:24 Albumin 4.3 g/dL (3.5-5.2) 01/11/25 16:24 Globulin 2.3 g/dL (1.3-4.6) 01/11/25 16:24 Lipase 37 U/L (13-60) 01/11/25 16:24 All radiology interpretation(s) finalized by discharge Clincial Decision Support The following clinical decision support tools were used to aid in care of the patient HEART Score -> History: Highly Suspicious, EKG: Non-specific Changes, Age: 65 or more yrs, Risk Factors: >/=3 Risk Factors, Troponin: Baseline Trop 16-45 ng/L. Resulting HEART Score: 8. 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
[2025-01-11 16:38] LABS: Hematocrit 49.2 % (37-53); Hemoglobin 16.30 g/dL (11.27-16.99); Mean Corpuscular HGB Conc 33.1 g/dL (30-55); Mean Corpuscular Hemoglobin 30.0 pg (27-33); Mean Corpuscular Volume 90.4 fl (82-101); Nucleated Red Blood Cells % 0 %; Platelet Count 221 10^3/cmm (157-399); Red Blood Count 5.44 10^6/uL (3.85-5.65); White Blood Count 7.43 10^3/uL (3.29-11.43)
[2025-01-11] MEDS: ondansetron 2 mg/ML SDV 2 mL 4 MG IVP (16:40)
[2025-01-11] MEDS: morphine 4 mg/mL SDV 1 mL IVP (16:41)
[2025-01-11 16:51] LABS: INR 1.46 (0.8-1.2); Prothrombin Time 18.70 SECONDS (12.1-14.9)
[2025-01-11 16:52] LABS: Partial Thromboplastin Time 29.1 SECONDS (23.9-36.7)
--- NOTE | 2025-01-11 16:59 | CTR_ITS ---
PROCEDURE INFORMATION: Exam: CTA Abdomen and Pelvis Without And With Contrast Exam date and time: 01/11/2025 5:27 PM Age: 79 years old Clinical indication: Other: Hypoxemia, tachycardia; Other: Pain in center of chest R/O disection; Arrives with [facility] from home- sharp chest pain and SOB that started this am. TECHNIQUE: Imaging protocol: Computed tomographic angiography of the abdomen and pelvis without and with contrast. Exam focused on the arteries. 3D rendering (Not supervised by radiologist): MIP and/or 3D reconstructed images were created by the technologist. Radiation optimization: All CT scans at this facility use at least one of these dose optimization techniques: automated exposure control; mA and/or kV adjustment per patient size (includes targeted exams where dose is matched to clinical indication); or iterative reconstruction. Contrast material: [id number]; Contrast volume: 100 ml; Contrast route: INTRAVENOUS (IV); COMPARISON: CT angio chest PE protcl [id number] 03/07/2021 12:17 PM RADIATION DOSE METRICS: Total DLP (mGy-cm): 1096.14 FINDINGS: Lungs: No endotracheal or endobronchial lesion noted. Small amount of compressive atelectasis. No lobar pneumonia. Mild perihilar ground-glass opacity may represent central pulmonary venous congestion. Small metallic density lateral aspect right upper lung. Mild fibrotic change lung apices. Small amount of strandy fibrotic change anteromedial aspect right upper lobe. 7 mm calcified granuloma upper central aspect right middle lobe. No lobar pneumonia. No lung mass. Small amount of atelectasis inferolateral aspect of lingula. Pleural spaces: Moderate size right pleural effusion with AP diameter 6 cm. Smaller left pleural effusion with AP diameter 4.4 cm. No pneumothorax. Heart: Cardiomegaly. No pericardial effusion. Coronary arteries: Coronary artery calcification appears present. Mediastinal space: No pneumomediastinum. Diaphragm: Small hiatal hernia suggested. Esophagus appears grossly unremarkable. Otherwise no bowel herniation noted. Pulmonary arteries: Pulmonary artery size within normal limits. No central thrombus of the pulmonary arteries. No peripheral filling defects noted in the pulmonary arteries. Great vessels off aortic arch: Patent origins of brachiocephalic vessels without origin stenosis. Aorta: Atherosclerotic calcification thoracic aorta. No confirmation of acute dissection or acute thrombus involving the thoracic aorta. No aneurysm of the thoracic aorta. Celiac and mesenteric arteries: See Other arteries finding. Renal arteries: See Other arteries finding. Right iliac arteries: See Other arteries finding. Left iliac arteries: No occlusion or severe stenosis. Other arteries: Atherosclerotic calcification. No aneurysm or dissection demonstrated of the abdominal aorta or iliac arteries. Grossly patent right iliac artery stents appear present. Grossly patent celiac axis and superior mesenteric artery. Grossly patent renal arteries. Atherosclerotic calcific plaque origins of renal arteries but no obvious severe renal artery stenosis noted. Veins: Patent hepatic veins. Inferior vena cava appears grossly unremarkable. Liver: Liver appears grossly unremarkable. No mass noted of the liver. Gallbladder and biliary ducts: Gallbladder not overly distended. No calcified stones noted the gallbladder. No biliary ductal dilatation noted. Pancreas: Pancreas appears unremarkable. No pancreatic ductal dilatation. Spleen: Spleen appears unremarkable. 14 mm splenule adjacent to medial aspect of spleen. Adrenal glands: Adrenal glands appear unremarkable. Kidneys and ureters: No hydronephrosis. Bilateral renovascular calcification. Ureters appear grossly unremarkable. 2 cm hypodensity anterior aspect right kidney image 201 series 8 measuring 22 Hounsfield units. Three approximate 3 cm and smaller hypodense lesions mid and lower portion left kidney. Mild perinephric fat stranding bilaterally without perinephric fluid collection. Stomach and bowel: No bowel obstruction. Scattered diverticula of the sigmoid colon. No focal bowel wall thickening noted. Terminal ileum appears grossly unremarkable. Appendix: Appendix not definitely visualized. No acute inflammatory changes noted in cecal region. Intraperitoneal space: No pneumoperitoneum. Lymph nodes: Some reactive lymph nodes appear present in the mediastinum and dal[place]. No obvious mediastinal or hilar adenopathy noted. No adenopathy noted in the abdomen or pelvis. Urinary bladder: Bladder not overly distended. Mild prominence bladder wall may represent some hypertrophy. Reproductive: Prostate gland not significantly enlarged. Seminal vesicles appear unremarkable. Extraperitoneal space: Small amount of fluid presacral space. No gross ascites. Bones/joints: Previous sternotomy. Some hypertrophic changes of the spine. No destructive bony process noted. Hypertrophic changes of the spine. Facet hypertrophy lumbar spine. Heterogeneous appearance of L4 body probably representing hemangioma; no gross destructive bony process noted of the L4 body. Soft tissues: Ischial rectal fossa regions appear unremarkable. Other findings: Thyroid gland appears grossly unremarkable. Some artifact appears present at level of the aortic arch. No abscess noted in the abdomen or pelvis. CT/CT [facility] [id number] IMPRESSION: 1. No aneurysm or dissection demonstrated of the thoracic aorta. 2. No pulmonary thromboembolism. 3. Bilateral pleural effusions, [id number]-jbgu-left. 4. Findings suggest central pulmonary venous congestion. 5. No lobar pneumonia. 6. No lung mass. 7. Reactive lymph nodes. No obvious adenopathy noted in the chest. 8. Cardiomegaly. Previous sternotomy. 9. Probable hemangioma L4 body. Comparison with any older abdominal CT exams would be helpful. No gross destructive bony process noted. 10. Hypodense lesions of kidneys incompletely evaluated on this exam. Favor cysts; nonemergent renal ultrasound may be helpful for further evaluation. 11. Some fluid in presacral space of uncertain significance. No gross ascites. 12. No abscess noted in the abdomen or pelvis. 13. Atherosclerotic changes. No aneurysm or dissection demonstrated of the abdominal aorta. 14. No acute thrombus noted in the abdomen or pelvis. 15. No adenopathy noted in the abdomen or pelvis. 16. Scattered diverticula sigmoid colon without confirmation of acute diverticulitis.
[2025-01-11 17:11] LABS: ABG PCO2 33.9 mmHg (35-45); ABG PH Result 7.29 (7.35-7.45); Arterial Blood Gas Hematocrit 50.0 % (42-52); Blood Gas Allen Test Pos; Blood Gas Sample Type Arterial; Carboxyhemoglobin 1.1 %THgb (0.4-20.1); Glucose Level-ABG 143.0 mg/dL (70-115); HCO3 ABG 16.3 mmol/L (22-26); Ionized Calcium Level - ABG 1.2 mmol/L (1.1-1.4); Methemoglobin 0.0 % (0.4-1.5); Oxygen Saturation ABG 96.8; PO2 ABG 95.3 mmHg (80.0-100.0); Potassium Level - ABG 4.7 mmol/L (3.5-5.0); Sodium Level - ABG 131.0 mmol/L (131-143)
[2025-01-11 17:12] LABS: Alveolar-Arterial Oxygen Gradi 18.9 mmHg (5-10); Blood Gas LPM 5.0 %; Blood Gas Operator Identificat MONRO; Blood Gas Sample Site Radial, right; PO2 FiO2 Ratio Arterial Blood 238
[2025-01-11 17:15] LABS: Alanine Aminotransferase 182 U/L (0-41); Albumin Level 4.3 g/dL (3.5-5.2); Alkaline Phosphatase 193 U/L (40-130); Anion Gap 22.9 (5-19); Aspartate Amino Transferase 143 U/L (0-40); Blood Urea Nitrogen 48 mg/dL (8-23); Calcium 10.0 mg/dL (8.5-10.5); Carbon Dioxide 17 mmol/L (22-29); Chloride 95 mmol/L (98-107); Globulin 2.3 g/dL (1.3-4.6); Glucose 136 mg/dL (65-115); Lipase 37 U/L (13-60); NT Pro B Type Natriuretic Pept 28745 pg/mL (0-450); Osmolality Calculated 285 mOsm/kg (285-295); Potassium 4.9 mmol/L (3.5-5.1); Sodium 130 mmol/L (136-145); Total Protein 6.6 g/dL (6.6-8.7)
[2025-01-11 17:19] LABS: Troponin(5th) Baseline 65 ng/L (0-15)
[2025-01-11] MEDS: iohexol 350 mg/mL 500 mL Btl (per mL) IV (17:53)
--- NOTE | 2025-01-11 18:16 | ECG_ITS ---
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 Measurements Intervals [place] Rate: 94 P: 52 MI: 211 QRS: -64 QRSD: 153 T: 101 QT: 405 QTc: 507 Interpretive Statements SINUS RHYTHM WITH FIRST DEGREE AV BLOCK POSSIBLE LEFT ATRIAL ENLARGEMENT [-0.1mV P-WAVE IN V1/V2] LEFT AXIS DEVIATION [QRS AXIS < -30] INTRAVENTRICULAR CONDUCTION DELAY [130+ ms QRS DURATION] Compared to ECG 01/11/2025 16:22:44 First degree AV block now present Sinus tachycardia no longer present Electronically Signed On 01-16-2025 17:31:14 ASSOCIATE PROFESSOR OF ECONOMICS by Reinier Man M.D. [email or web address]
[2025-01-11 18:47] LABS: Troponin 5 2HR 58.29 ng/L (0-15)
[2025-01-11 18:48] LABS: Troponin 5 2HR Delta -6.71 ABS# (0-10)
--- NOTE | 2025-01-11 21:10 | P.HP_ITS ---
Providers/Chief Complaint 2 Primary Care Provider: Mary Squires APRN Chief Complaint: chest Pain History of Present Illness Israel Shaw is a 79 year old male with a past medical history of ischemic cardiomyopathy, CAD, history of mitral valve regurgitation, dyslipidemia, history of CABG, who presents [facility] due to increased shortness of breath, increased lower extremity edema, chest pain. Currently patient is alert oriented x 3, follows all commands, he tells me that he lives with his brother, he tells that recently he has been increased shortness of breath, shortness of breath exertion, orthopnea, paroxysmal nocturnal dyspnea, increased lower extremity edema, with chest pain, substernal, nonradiating, associated with shortness of breath, he denies any abdominal pain, no right upper quadrant abdominal pain, no fevers, no chills, no cough, denies alcoholism, Review of Systems 2 Card: Reports: chest pain Resp: Reports: dyspnea Medications/Allergies Home Medications ?Medication ?Instructions ?Recorded ?Confirmed ?Last Taken ?Type acetaminophen 500 mg tablet 1,000 mg PO QID PRN Pain 1 04/10/19 01/05/25 03/16/20 History (Tylenol Extra Strength) nitroglycerin 0.4 mg sublingual 0.4 mg sublingual Q5M PRN chest 02/09/20 01/05/25 Unknown Rx tablet (Nitrostat) pain #50 tabs rosuvastatin 40 mg tablet 40 mg PO DAILY #90 tabs 01/0201/05/25 Unknown Rx sacubitril 97 mg-valsartan 103 mg 1 tab PO BID #180 ta bs 01/27/23 01/05/25 Unknown Rx tablet (Entresto) clopidogrel 75 mg tablet 75 mg PO DAILY 01/27/2407/25 Unknown History guselkumab 100 mg/mL subcutaneous mg SUBCUT 01/27/24 1 03/07/24 Unknown History auto-injector (Tremfya) spironolactone 25 mg tablet 25 mg PO DAILY #90 tabs 01/05/25 Unknown Rx empagliflozin 10 mg tablet 10 mg PO DAILY #30 tabs 09/2401/05/25 Unknown Rx (Jardiance) Orthopedic shoes with custom #2 ea 01/05/25 01/05/25 U nknown Rx orthotics with castro's extension to the left compression socks #6 ea 01/05/25 01/05/25 Unkn own Rx Allergies Allergy/AdvReac Type Severity Reaction Status Date / Time No Known Allergies Allergy Verified 01/11/25 16:30 PFSH Acute 2 PFSH: Medical History Psoriasis Ischemic cardiomyopathy An EKG was done today which revealed a sinus rhythm with recurrent PVCs. Possible left atrial enlargement. Poor R wave progression. Some nonspecific T wave changes in the high lateral leads. Atherosclerotic heart disease of [place] coronary artery without angina pectoris Hx of coronary atherosclerosis History of hypertension Hx of hyperlipidemia History of hypothyroidism Hx of heart failure Hx of chest pain Hx of congestive heart failure Surgical History History of open heart surgery Hx of appendectomy Family History Father CAD (coronary artery disease) Mother CAD (coronary artery disease) Grandmother CAD (coronary artery disease) Family/Other CAD (coronary artery disease) Brother CAD (coronary artery disease) Sister CAD (coronary artery disease) Denies family history of Diabetes Clotting disorder Dementia Chronic kidney disease (CKD) Suicide Anesthesia complication Bleeding disorder Lung disease Cancer Stroke Social History Smoking and tobacco/nicotine status: former use of tobacco/nicotine Alcohol intake: former Substance/Drug Use: never Vitals/I&O/Wt Last Vital Signs Temp 96 F L 01/11/25 16:16 Pulse 94 01/11/25 21:00 Resp 14 01/11/25 20:15 BP 116/74 01/11/25 21:00 Pulse Ox 94 01/11/25 21:00 O2 Del Method Nasal Cannula 01/11/25 21:00 O2 Flow Rate 3 01/11/25 21:00 01/11/25 01/11/25 01/11/25 06:59 14:59 22:59 Intake Total 0 / 0 Balance 0 / 0 Weight last 48 hrs Weight 82.554 kg Physical Exam 2 Const: COMMON NORMALS: no acute distress and patient oriented x3 Eye: COMMON NORMALS: Equal, round and reactive pupils present and EOMs intact bilaterally Resp: COMMON NORMALS: normal respiratory effort, No retractions, No use of accessory muscles and clear to auscultation bilaterally AUSCULTATION: c rackles and wheezes Cardio: COMMON NORMALS: regular rate, regular rhythm, S1 normal heart sound present and S2 normal heart sound present JUGULAR VENOUS DISTENTION: JVD positive to the level of the earlobe RATE: regular rate RHYTHM: regular rhythm HEART SOUNDS: S1 normal heart sound present and S2 normal heart sound present GI: COMMON NORMALS: Normal to inspection, nondistended, normoactive bowel sounds present, Soft to palpation and non-tender Extremity: COMMON NORMALS: no pedal edema Neuro: COMMON NORMALS: patient oriented x3, CN's II-XII intact bilaterally and moves all extremities Psych: COMMON NORMALS: mental status grossly normal Skin: NARRATIVE SKIN EXAM: 2+ pitting edema Data 01/11/25 16:24 01/11/25 16:24 A&P Assessment and plan 1. Cardiogenic shock: 2. Ischemic cardiomyopathy: 3. Mitral regurgitation: 4. Dyslipidemia: 5. Acute renal insufficiency: 6. Hyperbilirubinemia: 7. Acute hypoxic respiratory failure: Plan: Acute hypoxic respiratory failure - Secondary to ischemic cardiac, systolic CHF Plan - Will require ICU admission - Consider BiPAP - Lasix 40 mg IV twice daily - Monitor respiratory status closely - Full code - Heparin drip for DVT prophylaxis Chest pain - With NSTEMI - With history of ischemic cardiomyopathy Cardiac cath 06/07/2024 2. Left main was found to have 40% diffuse narrowing. Left left anterior descending artery had a competitive blood flow distally. 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 Patent REY to the LAD. No venous grafts are visualized. LV ejection fraction 35 to 40%. LVEDP 26 mmHg. 3. The right atrial pressure was 12, RV pressure 50/8, PA pressure of 60/29 with a mean of 37 and a pulmonary capillary wedge pressure was 27. Plan - Aspirin, statin, Plavix - Heparin drip - Cardiac echo Cardiogenic shock - With ischemic cardiomyopathy, ejection fraction on coronary angiogram 06/2024 was 35 to 40% - With acute systolic CHF - With bilateral pleural effusions - With elevated JVD - BNP over 28,000 Plan - Maintain MAP around 65, Levophed as needed - Order placed for PICC line - Stat cardiac echocardiogram Sepsis? -Source of infection unclear - With transaminitis, elevated bilirubin, - CRP within normal limits - Lipase within normal limits - No fevers, no leukocytosis, no abdominal pain - Will order ultrasound of the abdomen, evaluate liver gallbladder - For now placed on prophylactic vancomycin, Zosyn - Will de-escalate based on clinical progress - Urinalysis - Blood cultures Acute kidney injury on CKD - Etiology multifactorial - Component of cardiorenal syndrome - Ultrasound abdomen - Monitor renal function, creatinine - Monitor for contrast-induced nephropathy Transaminitis with hyperbilirubinemia - Etiology could be from congestive hepatopathy from ischemic cardiomyopathy - Does have hepatojugular reflex, JVD distention - No radiographic evidence of acute ascending cholangitis, CRP within normal notes, no leukocytosis CT/[facility] ang [facility] [id number] IMPRESSION: 1. No aneurysm or dissection demonstrated of the thoracic aorta. 2. No pulmonary thromboembolism. 3. Bilateral pleural effusions, xzqvt-oxgsbex-dosd-left. 4. Findings suggest central pulmonary venous congestion. 5. No lobar pneumonia. 6. No lung mass. 7. Reactive lymph nodes. No obvious adenopathy noted in the chest. 8. Cardiomegaly. Previous sternotomy. 9. Probable hemangioma L4 body. Comparison with any older abdominal CT exams would be helpful. No gross destructive bony process noted. 10. Hypodense lesions of kidneys incompletely evaluated on this exam. Favor cysts; nonemergent renal ultrasound may be helpful for further evaluation. 11. Some fluid in presacral space of uncertain significance. No gross ascites. 12. No abscess noted in the abdomen or pelvis. 13. Atherosclerotic changes. No aneurysm or dissection demonstrated of the abdominal aorta. 14. No acute thrombus noted in the abdomen or pelvis. 15. No adenopathy noted in the abdomen or pelvis. 16. Scattered diverticula sigmoid colon without confirmation of acute diverticulitis. -Monitor bilirubin - Ultrasound abdomen I had a detailed discussion with Israel about his goals of care - I am worried that he is in cardiogenic shock, with cardiorenal syndrome, with severe congestive hepatopathy with evidence of acute kidney failure, acute liver failure, with acute systolic CHF and morbidity and mortality associated - He already has a history of ischemic cardiomyopathy EF 25 to 30% - Discussed morbidity and mortality, he voiced understanding, all question answered, decision making, for now he wants to remain a full code PDMP PDMP Reviewed: Not Reviewed Attestations 2 Medical Necessity Statement*: Patient requires hospitalization l, inpatient, greater than 2 midnights, for cardiogenic shock Diagnoses Cardiogenic shock R57.0 Ischemic cardiomyopathy I25.5 Mitral regurgitation I34.0 Dyslipidemia E78.5 Acute renal insufficiency N28.9 Hyperbilirubinemia E80.6 Acute hypoxic respiratory failure J96.01 Sepsis Event Note Evaluation Current stage of sepsis: sepsis Possible source: GI tract/intra-abdominal Focused Exam Vital Signs Temp Pulse Resp BP Pulse Ox O2 Del Method O2 Flow Rate 01/11/25 21:00 94 116/74 94 Nasal Cannula 3 01/11/25 20:15 93 14 115/80 96 Nasal Cannula 3 01/11/25 20:00 103 H 114/80 98 Room Air 01/11/25 19:45 92 120/77 100 Nasal Cannula 3 01/11/25 19:30 92 116/78 100 Nasal Cannula 01/11/25 18:45 93 115/78 98 Nasal Cannula 3 01/11/25 18:30 91 115/84 92 Nasal Cannula 3 01/11/25 18:15 94 119/81 92 Nasal Cannula 3 01/11/25 18:00 98 122/81 91 Nasal Cannula 3 01/11/25 17:45 103 H 130/83 93 Nasal Cannula 3 01/11/25 17:15 99 116/82 94 Nasal Cannula 01/11/25 17:00 97 116/78 95 Nasal Cannula 01/11/25 16:49 102 H 126/82 97 Nasal Cannula 5 01/11/25 16:42 101 H 16 114/73 93 Nasal Cannula 5 01/11/25 16:41 18 97 01/11/25 16:16 96 F L 109 H 24 H 128/111 94 Nasal Cannula 3 Respiratory exam: Present rhonchi and wheezes Capillary refill: < 3 Seconds Peripheral pulse strength: 2+ Slightly Diminished Peripheral pulse location: Pedal Skin exam: normal turgor Date exam was performed: 01/11/25 Time exam was performed: 21:17 Problem List 1. Cardiogenic shock: Status: Acute 2. Ischemic cardiomyopathy: Status: Acute Comment: An EKG was done today which revealed a sinus rhythm with recurrent PVCs. Possible left atrial enlargement. Poor R wave progression. Some nonspecific T wave changes in the high lateral leads. 3. Mitral regurgitation: Status: Acute 4. Dyslipidemia: Status: Acute 5. Acute renal insufficiency: Status: Acute 6. Hyperbilirubinemia: Status: Acute 7. Acute hypoxic respiratory failure: Status: Acute
--- NOTE | 2025-01-11 22:16 | ECG_ITS ---
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 Measurements Intervals [place] Rate: 94 P: 81 NV: 218 QRS: -81 QRSD: 149 T: 98 QT: 408 QTc: 513 Interpretive Statements SINUS RHYTHM WITH FIRST DEGREE AV BLOCK WITH OCCASIONAL VENTRICULAR PREMATURE COMPLEXES POSSIBLE LEFT ATRIAL ENLARGEMENT [-0.1mV P-WAVE IN V1/V2] INTRAVENTRICULAR CONDUCTION DELAY [130+ ms QRS DURATION] Compared to ECG 01/11/2025 18:16:56 Ventricular premature complex(es) now present Electronically Signed On 01-16-2025 16:43:33 SALES DEVELOPMENT REPRESENTATIVE by Reinier Man M.D. [email or web address]
[2025-01-11 23:06] LABS: Cholesterol 101 mg/dL (0-200); HDL Cholesterol 22 mg/dL (60-100); Thyroid Stimulating Hormone 11.29 uIU/mL (0.27-4.20); Triglycerides 80 mg/dL (0-150)
[2025-01-11] MEDS: albumin 25 G/100 ML BAG 60 G IV (23:08)
[2025-01-11] MEDS: pantoprazole 40 mg SDV IVP (23:10)
[2025-01-11] MEDS: FUROsemide 10 mg/mL SDV 4mL 40 MG IVP (23:13)
[2025-01-11] MEDS: heparin drip 25,000 UNIT/500 ML PREMIX 23 UNIT IV (23:15)
[2025-01-11 23:24] LABS: INR 1.58 (0.8-1.2); Partial Thromboplastin Time 30.1 SECONDS (23.9-36.7); Prothrombin Time 19.80 SECONDS (12.1-14.9)
[2025-01-11] MEDS: piperacillin-tazobactam 3.375 GM in sodium chloride 0.9% (plus) 50 ML IV (23:26)
[2025-01-11 23:29] LABS: Estmated Average Glucose 117; Hemoglobin A1C 5.7 % (4.0-6.0)
[2025-01-11 23:34] LABS: Troponin 5 6HR 73.61 ng/L (0-15); Troponin 5 6HR Delta 8.61 ng/L (0-12)
[2025-01-12] VITALS (175 sets, daily range): BP systolic 82–135; BP diastolic 44–88; PULSE 75–111; RESP 0–100; TEMP 35.8–36.2; O2SAT 88–100
--- NOTE | 2025-01-12 00:09 | PC.NURSE ---
instructed by Dr. Parra to not administer heparin loading dose
[2025-01-12 00:42] LABS: Lactic Sepsis W/Reflex 4.0 mmol/L (0.5-2.2)
[2025-01-12 01:14] LABS: Glucose Urine UA Negative (Normal); Nitrate Urine Negative (Negative)
[2025-01-12 01:19] LABS: Add Urine Microscopic? YES
[2025-01-12 01:32] LABS: Specific Gravity, Urine 1.053 (1.005-1.030)
[2025-01-12 01:54] LABS: Reflex Lactate Order REFLEX LACTIC ORDERD
--- NOTE | 2025-01-12 03:01 | ECG_ITS ---
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 Measurements Intervals [place] Rate: 87 P: 61 AR: 229 QRS: 255 QRSD: 154 T: 70 QT: 418 QTc: 504 Interpretive Statements SINUS RHYTHM WITH FIRST DEGREE AV BLOCK POSSIBLE LEFT ATRIAL ENLARGEMENT [-0.1mV P-WAVE IN V1/V2] RIGHT AXIS DEVIATION [QRS AXIS > 100] INTRAVENTRICULAR CONDUCTION DELAY [130+ ms QRS DURATION] INTERPRETATION BASED ON A DEFAULT AGE OF 40 YEARS Compared to ECG 01/11/2025 22:12:05 Right-axis deviation now present Ventricular premature complex(es) no longer present Electronically Signed On 01-12-2025 20:12:57 CURING PRESS OPERATOR by Reinier Man M.D. [id number]
--- NOTE | 2025-01-12 03:22 | PC.NURSE ---
patient appeared to be experiencing v tach but when ekg obtained returned as nsr Dr. Parra notified
[2025-01-12 03:24] LABS: Lactic Acid level (Lactate) 4.5 mmol/L (0.5-2.2)
[2025-01-12 04:10] LABS: ABG PCO2 30.8 mmHg (35-45); ABG PH Result 7.31 (7.35-7.45); Arterial Blood Gas Hematocrit 50.4 % (42-52); Blood Gas LPM 4.0 %; Blood Gas Sample Site Brachial, right; Blood Gas Sample Type Arterial; HCO3 ABG 15.4 mmol/L (22-26); PO2 ABG 103.0 mmHg (80.0-100.0)
[2025-01-12] MEDS: FUROsemide 10 mg/mL SDV 4mL 40 MG IVP ×2 (04:25→11:14)
[2025-01-12 05:32] LABS: Hematocrit 45.8 % (37-53); Hemoglobin 14.90 g/dL (11.27-16.99); Mean Corpuscular HGB Conc 32.5 g/dL (30-55); Mean Corpuscular Hemoglobin 30.4 pg (27-33); Mean Corpuscular Volume 93.5 fl (82-101); Nucleated Red Blood Cells % 0.2 %; Platelet Count 181 10^3/cmm (157-399); Red Blood Count 4.90 10^6/uL (3.85-5.65); White Blood Count 9.14 10^3/uL (3.29-11.43)
[2025-01-12] MEDS: albumin 25 G/100 ML BAG 60 G IV ×3 (05:44→22:29)
[2025-01-12 06:00] LABS: Partial Thromboplastin Time 198.7 SECONDS (23.9-36.7)
[2025-01-12 06:07] LABS: Alanine Aminotransferase 439 U/L (0-41); Albumin Level 3.9 g/dL (3.5-5.2); Alkaline Phosphatase 148 U/L (40-130); Aspartate Amino Transferase 405 U/L (0-40); Blood Urea Nitrogen 51 mg/dL (8-23); Calcium 9.2 mg/dL (8.5-10.5); Carbon Dioxide 24 mmol/L (22-29); Chloride 97 mmol/L (98-107); Globulin 1.5 g/dL (1.3-4.6); Glucose 92 mg/dL (65-115); Osmolality Calculated 299 mOsm/kg (285-295); Sodium 138 mmol/L (136-145); Total Protein 5.4 g/dL (6.6-8.7)
[2025-01-12 06:08] LABS: Anion Gap 22.5 (5-19); Potassium 5.5 mmol/L (3.5-5.1)
[2025-01-12 06:30] LABS: Procalcitonin 0.16 ng/mL (0-0.5)
--- NOTE | 2025-01-12 06:32 | PC.NURSE ---
reported critical lab to Dr. Parra he instructed to hold heparin and ya ptt in 4 hours lab orders placed
--- NOTE | 2025-01-12 06:33 | PC.NURSE ---
received verbal from Dr. Parra for bipap placed order and informed RT
--- NOTE | 2025-01-12 06:35 | PC.NURSE ---
received verbal order due to bicarb lab results placed order see mar
--- NOTE | 2025-01-12 07:21 | PC.PHAR ---
[facility] is [facility] for [facility] med list 01/12/25 7:20am-will call if no response by 8am
[2025-01-12] MEDS: piperacillin-tazobactam 3.375 GM in sodium chloride 0.9% (plus) 50 ML IV ×3 (08:08→22:28)
[2025-01-12] MEDS: DOBUTamine drip 500 MG/250 ML PREMIX 11.85 MG IV (09:10)
[2025-01-12 09:15] LABS: Iron 41 ug/dL (59-158); Total Iron Binding Capacity 227 mcg/dl; Unsaturated Iron Binding 186 ug/dL (112-347)
[2025-01-12 09:30] LABS: Vitamin B12 1104 pg/mL (232-1245)
--- NOTE | 2025-01-12 09:31 | PC.PHAR ---
Pt states he used to take several medications for his heart and something else. Added [facility] and [facility] combined medication list previously taken. Rere gave pts' flu shot 11/29/24.
[2025-01-12 09:37] LABS: Free T4 Free Thyroxine 1.66 ng/dL (0.82-1.77)
[2025-01-12] MEDS: pantoprazole 40 mg SDV IVP ×2 (10:38→22:28)
[2025-01-12] MEDS: insulin regular-human 100 units/1 mL 10 UNIT IVP (10:52)
[2025-01-12 10:54] LABS: Partial Thromboplastin Time 33.7 SECONDS (23.9-36.7)
--- NOTE | 2025-01-12 10:54 | PC.NURSE ---
Dr. Mackenzie rounding discussing POC, started Dobutamine gtt, see MAR, received orders for magnesium lab. Cardiology consulted as well.
--- NOTE | 2025-01-12 11:08 | PC.NURSE ---
Heparin gtt paused at 0600 by cage shift manager, due to high PTT, resumed heparin at half prior rate per Dr. Meyer orders. Resumed heparin gtt at 12 mLs/hr. at 1115.
--- NOTE | 2025-01-12 11:09 | P.CONIM_ITS ---
<Statement entered by Oh Quiroz M.D - 01/15/25 19:37> Patient was cared for in conjunction with an advanced practice practitioner. I reviewed the chart and all pertinent data including imaging, telemetry, and laboratory results. I discussed the patient in detail with the advanced practice practitioner. Please see their note for agreed upon plan of care and results for the patient. Providers/Reason For Consult 2 Consulting Physician/Specialty*: Dr Quiroz, interventional cardiology Reason for Consult*: Chest pain, cardiogenic shock versus septic shock Requesting Physician: Eric Mackenzie MD Attending Physician: Eric Mackenzie MD Primary Care Provider: Mary Squires APRN History of Present Illness History of Present Illness Israel Shaw is a 79 year old male with past medical history of CAD s/p CABG about 35 years ago, history of PCI 10 years after his CABG, systolic CHF (LVEF 35 to 40% February 2024), grade 3 diastolic dysfunction, mild to moderate aortic regurgitation, likely severe mitral regurgitation, previous smoker (quit over 20 years ago), hypertension, hypothyroidism. He presented to the emergency room yesterday due to substernal chest pain, increased shortness of breath, lower extremity edema, orthopnea and PND. EKG revealed sinus tachycardia, subsequent EKG showed sinus rhythm with first- degree AV block borderline IVCD. At the time of my exam, rhythm appears irregular, EKG appears to be sinus rhythm with PAC's. Troponin series 65?>58?>73. Lactic acid 4.5, BUN today 51, creatinine 2.3. Renal function is significantly decreased from normal renal function in June. WBC normal. No UTI. AST 405, ALT 439, TSH 11 (free T4 1.66, free T3 1.8). Procalcitonin 0.16. CTA of the chest yesterday does not show pneumonia, moderate right pleural effusion, small left pleural effusion, no PE. Central pulmonary venous congestion. No infectious source identified. He is on dobutamine 5 mcg/kg/min, heparin infusion, Lasix infusion 10 mg/h. Urine output has been low. Chest pain-free currently. Review of Systems 2 Const: Denies: fever(s), chills, change in weight, fatigue or diaphoresis Eyes: Denies: change in vision ENMT: Denies: epistaxis Card: Reports: chest pain, edema, dyspnea on exertion and orthopnea; Denies: palpitations, irregular heart rhythm, syncope, pre-syncope or leg pain with exertion Resp: Denies: dyspnea, productive cough or wheezing GI: Denies: nausea, vomiting, hematemesis, hematochezia or melena : Denies: hematuria Jhonatan/Lymph: Denies: easy bruising or easy bleeding Medications/Allergies Home Medications ?Medication ?Instructions ?Recorded ?Confirmed ?Last Taken ?Type acetaminophen 500 mg tablet 1,000 mg PO QID PRN Pain 1 04/10/19 01/12/25 03/16/20 History (Tylenol Extra Strength) nitroglycerin 0.4 mg sublingual 0.4 mg sublingual Q5M PRN chest 02/09/20 01/12/25 Unknown Rx tablet (Nitrostat) pain #50 tabs rosuvastatin 40 mg tablet 40 mg PO DAILY #90 tabs 01/0201/12/25 Unknown Rx sacubitril 97 mg-valsartan 103 mg 1 tab PO BID #180 ta bs 01/27/23 01/12/25 Unknown Rx tablet (Entresto) clopidogrel 75 mg tablet 75 mg PO DAILY 01/27/2401/01 Unknown History spironolactone 25 mg tablet 25 mg PO DAILY #90 tabs 01/12/25 Unknown Rx empagliflozin 10 mg tablet 10 mg PO DAILY #30 tabs 09/2401/12/25 Unknown Rx (Jardiance) Orthopedic shoes with custom #2 ea 01/05/25 01/12/25 U nknown Rx orthotics with castro's extension to the left compression socks #6 ea 01/05/25 01/12/25 Unkn own Rx guselkumab 100 mg/mL subcutaneous 100 mg SUBCUT .Q8WEE [place] 01/12/25 01/12/25 Unknown History pen injector (Tremfya Pen) Allergies Allergy/AdvReac Type Severity Reaction Status Date / Time No Known Allergies Allergy Verified 01/11/25 16:30 Current Medications Generic Name Dose Route Start Last Admin Trade Name Freq PRN Reason Stop Dose Admin Aspirin 81 mg 01/12/25 05:00 01/12/25 04:24 Aspirin 81 Mg Ec Tablet PO 81 mg DAILY LIZZ Administration Atorvastatin Calcium 80 mg 01/12/25 05:00 01/12/25 04:22 Atorvastatin 40 Mg Tablet PO 80 mg DAILY LIZZ Administration Clopidogrel Bisulfate 75 mg 01/12/25 05:00 01/12/25 04:24 Clopidogrel 75 Mg Tablet PO 75 mg DAILY LIZZ Administration Furosemide 40 mg 01/12/25 04:00 01/12/25 04:25 Furosemide 10 Mg/Ml Sdv 4ml IVP 40 mg Q8H LIZZ Administration Albumin Human 25 g in 100 mls @ 60 mls/hr 01/11/25 22:14 01/12/25 07:37 Albumin IV Infused Q8H LIZZ Infusion Heparin Sodium/Sodium Chloride 25,000 unit in 500 mls @ 0 mls/hr 01/11/25 22:14 01/12/25 06:00 Heparin Drip IV 0 unit/kg/hr CONT LIZZ 0 mls/hr Protocol Titration Per Protocol Piperacillin Sod/Tazobactam 50 mls @ 12.5 mls/hr 01/11/25 23:00 01/12/25 08:08 Sod 3.375 gm/ Sodium Chloride IV 12.5 mls/hr Q8H LIZZ Administration Dobutamine HCl/Dextrose 500 mg in 250 mls @ 0 mls/hr 01/12/25 08:45 01/12/25 09:10 Dobutamine Drip IV 5 mcg/kg/min .Q0M LIZZ 11.85 mls/hr Protocol Administration Per Protocol Levothyroxine Sodium 25 mcg 01/12/25 08:50 01/12/25 09:15 Levothyroxine 25 Mcg Tablet PO 25 mcg QAM LIZZ Administration Pantoprazole Sodium 40 mg 01/11/25 22:14 01/12/25 10:38 Pantoprazole 40 Mg Sdv IVP 40 mg Q12H LIZZ Administration PFSH Acute 2 PFSH: Medical History Psoriasis Ischemic cardiomyopathy An EKG was done today which revealed a sinus rhythm with recurrent PVCs. Possible left atrial enlargement. Poor R wave progression. Some nonspecific T wave changes in the high lateral leads. Atherosclerotic heart disease of [place] coronary artery without angina pectoris Hx of coronary atherosclerosis History of hypertension Hx of hyperlipidemia History of hypothyroidism Hx of heart failure Hx of chest pain Hx of congestive heart failure Surgical History Hx of CABG History of open heart surgery Hx of appendectomy Family History Father CAD (coronary artery disease) Mother CAD (coronary artery disease) Grandmother CAD (coronary artery disease) Family/Other CAD (coronary artery disease) Brother CAD (coronary artery disease) Sister CAD (coronary artery disease) Denies family history of Diabetes Clotting disorder Dementia Chronic kidney disease (CKD) Suicide Anesthesia complication Bleeding disorder Lung disease Cancer Stroke Social History Smoking and tobacco/nicotine status: former use of tobacco/nicotine Alcohol intake: former Substance/Drug Use: never Vitals/I&O/Wt Last Vital Signs Temp 96.5 F L 01/12/25 08:13 Pulse 93 01/12/25 07:02 Resp 15 01/12/25 06:25 BP 106/73 01/12/25 06:25 Pulse Ox 100 01/12/25 06:25 O2 Del Method Nasal Cannula 01/11/25 23:43 O2 Flow Rate 4 01/11/25 23:43 FiO2 40 01/12/25 04:35 01/11/25 01/12/25 01/12/25 22:59 06:59 14:59 Intake Total 0 / 305.25 305.25 / 305.25 750 / 750 Output Total 200 / 200 Balance 0 / 105.25 105.25 / 105.25 750 / 750 Weight last 48 hrs Weight 174 lb 2.643 oz Weight 174 lb 2.643 oz Weight 182 lb Physical Exam 2 Const: COMMON NORMALS: no acute distress and patient oriented x3 GENERAL APPEARANCE: cooperative and comfortable ORIENTATION/CONSCIOUSNESS: Yes awake, Yes oriented to person, Yes oriented to place and Yes oriented to time Chest: COMMONS NORMALS: normal inspection of the chest and normal palpation of entire chest wall CHEST: Yes Symmetrical chest wall rise Resp: COMMON NORMALS: normal respiratory effort, No retractions and No use of accessory muscles EFFORT & INSPECTION: Yes symmetric chest movement A USCULTATION: crackles Laterality: bilateral and posterior and diminished lung sounds bilateral in the lower lung turk Cardio: COMMON NORMALS: regular rate, regular rhythm, S1 normal heart sound present, S2 normal heart sound present, No gallops present (Cardio), No clicks present (Cardio), No murmurs present (Cardio) and No rub (Cardio) RATE: r egular rate RHYTHM: regular rhythm HEART SOUNDS: S1 normal heart sound present and S2 normal heart sound present PERIPHERAL PULSES: radial pulses present Extremity: COMMON NORMALS: no pedal edema Neuro: COMMON NORMALS: patient oriented x3 and moves all extremities S ENSORIUM/ORIENTATION: Yes oriented to person, Yes oriented to place and Yes oriented to time Urinary Catheter Management: Rice: Cath Placed During This Visit: yes Reason for Continuing Indwelling Catheter: Accurate Measurement of Urinary Output in Critically Ill Patients Urinary Catheter Date of Insertion: 01/12/25 Urinary Catheter Time of Insertion: 05:34 Data 01/12/25 05:15 01/12/25 05:15 A&P Assessment and plan 1. Hx of CAB. Acute on chronic congestive heart failure: 3. Mitral regurgitation: 4. History of hypertension: 5. Subclinical hypothyroidism: 6. Transaminitis: 7. Acute renal insufficiency: 8. Pleural effusion, bilateral: 9. Elevated lactic acid level: Plan: Agree with dobutamine and Lasix infusion for diuresis. Echocardiogram is pending read. Appears to have acute on chronic systolic CHF exacerbation, REY to LAD is the only patent vessel. No significant elevation in troponin and chest pain is improved. Further plan based on progress of patient. PDMP PDMP Reviewed: Not Reviewed Coding Level of Care Code Acute Code for Chg Fwd Diagnoses Hx of CABG Z95.1 Acute on chronic congestive heart failure I50.9 Mitral regurgitation I34.0 History of hypertension Z86.79 Subclinical hypothyroidism E03.8 Transaminitis R74.01 Acute renal insufficiency N28.9 Pleural effusion, bilateral J90 Elevated lactic acid level R79.89
--- NOTE | 2025-01-12 11:12 | P.PN_ITS ---
Subjective 2 Subjective: Admitted overnight. Examination patient laying comfortably in bed. Denies any nausea, vomiting, headache. States he is very hungry and feels tongue being very dry. States breathing has been worse for last 1 month, chest pain on and off for last couple of months but has been getting worse. Denies any nausea, vomiting. Currently blood pressure of 120 systolic, Rice in place. States feeling slightly better than when he came to the hospital. Vitals/I&O/Wt Last Vital Signs Temp 96.5 F L 01/12/25 08:13 Pulse 93 01/12/25 07:02 Resp 15 01/12/25 06:25 BP 106/73 01/12/25 06:25 Pulse Ox 100 01/12/25 06:25 O2 Del Method Nasal Cannula 01/11/25 23:43 O2 Flow Rate 4 01/11/25 23:43 FiO2 40 01/12/25 04:35 01/11/25 01/12/25 01/12/25 22:59 06:59 14:59 Intake Total 0 / 0 305.25 / 305.25 750 / 750 Output Total 200 / 200 Balance 0 / 0 105.25 / 105.25 750 / 750 Weight last 48 hrs Weight 79 kg Weight 79 kg Weight 82.554 kg Physical Exam 2 Narrative: General: No acute distress, AO x3, chronically sick appearing HEENT: PERRLA, pupils bilaterally equal and reactive Chest: Bilateral bronchial breath in the lower lung turk with decreased air entry in bilateral lower zone, fine crackles up to mid chest CVS: S1-S2 regular, pansystolic murmur at apex 3/6 up to mid anterior axillary line, no tachycardia, no gallops, no rubs Abdomen: Soft, nontender, no organomegaly, bowel sounds present Neuro: No focal deficits, no facial deformity, AO x3, power 5/5 in all limbs Urinary Catheter Management: Rice: Cath Placed During This Visit: yes Reason for Continuing Indwelling Catheter: Accurate Measurement of Urinary Output in Critically Ill Patients Urinary Catheter Date of Insertion: 01/12/25 Urinary Catheter Time of Insertion: 05:34 Data 01/12/25 05:15 01/12/25 05:15 A&P Assessment and plan 1. Acute hypoxic respiratory failure: 2. Cardiogenic shock: 3. Ischemic cardiomyopathy: 4. Cardiorenal syndrome with renal failure: 5. Transaminitis: 6. Hyperkalemia: 7. Subclinical hypothyroidism: 8. Elevated lactic acid level: 9. Nonrheumatic mitral valve regurgitation: 10. Dyslipidemia: 11. Acute renal insufficiency: 12. Hyperbilirubinemia: 13. Hx of CABG: Plan: Acute hypoxic respiratory failure - Secondary to ischemic cardiac, systolic CHF Chest pain - With NSTEMI - With history of ischemic cardiomyopathy Aspirin, statin, Plavix - Heparin drip - Cardiac echo Cardiogenic shock - With ischemic cardiomyopathy, ejection fraction on coronary angiogram 06/2024 was 35 to 40% Sepsis? -Source of infection unclear Acute kidney injury on CKD - Etiology multifactorial - Component of cardiorenal syndrome - Monitor for contrast-induced nephropathy Transaminitis with hyperbilirubinemia I had a detailed discussion with Israel about his goals of care - I am worried that he is in cardiogenic shock, with cardiorenal syndrome, with severe congestive hepatopathy with evidence of acute kidney failure, acute liver failure, with acute systolic CHF and morbidity and mortality associated - He already has a history of ischemic cardiomyopathy EF 25 to 30% - Discussed morbidity and mortality, he voiced understanding, all question answered, decision making, for now he wants to remain a full code Plan for the day: Cardiogenic shock in setting of ischemic cardiomyopathy with known EF of 45 to 40% from echo in June 2024, last cardiac angiogram in June 2024 and patient was advised medical management. Currently elevated lactic acid, acute kidney injury, transaminitis with concerns for hypoperfusion. Goal blood pressure less than 140/90 mmHg with mean over 65. For now start on dobutamine drip. Will plan to keep dobutamine drip nontitratable at 5. Monitor urine output. Strict improved charting. Fluid restriction to less than 1500 cc. Repeat BMP in afternoon to monitor for potassium levels. Currently hyperkalemia with potassium of 5.5. Patient does have low EF. Overnight had episodes of ventricular arrhythmia. Target potassium around 4, magnesium around 2. Insulin 10 units with D10, sodium bicarb 1 time. Appreciate recent hepatitis panel. Continue to monitor liver functions daily. Repeat lactic in a.m. Will consult cardiology for further recommendations. For congestive heart failure for now continue with Lasix 40 mg 3 times daily. Fluid restriction to less than 1500 cc. If urine output does not improve in 4 to 5 hours can plan for Lasix drip. Infectious source less likely. Check MRSA swab. Follow-up blood culture. For now continue IV vancomycin and Zosyn. If MRSA swab negative will discontinue vancomycin. The patient remains hemodynamically stable, afebrile for next 24 hours we will de-escalate antibiotics rapidly as chances of infectious process is low. Elevated troponin most likely type II in nature. Already had angiogram in June. Aspirin, Plavix. Hold off on statin given transaminitis. SUMI most likely in setting of cardiorenal syndrome. Patient also was Entresto prior to admission. Medical reconciliation done for nephrotoxic drugs. Monitor BMP every 12 hourly. If does not improve in next 24 to 48 hours or if urine output declines will plan to consult nephrology. TSH elevated more than 10. Check free T3, T4. Will start on levothyrox 25 mcg daily. Start on mech soft diet. Speech eval Analgesia:Morphine Glycemic control: Not needed Nutrition: Mech soft diet CODE STATUS: Full code PUD prophylaxis: Protonix DVT prophylaxis: Heparin drip will be sufficient Discharge planning: As per clinical status Continue with care at ICU This documentation was created by [employer] b2b sales professional software. Every effort was made to ensure accuracy of b2b sales professional. Any obvious errors or omissions should be clarified with the author of the document. PDMP PDMP Reviewed: Not Reviewed Attestations 2 Medical Necessity Statement*: Requires further hospitalization for management of congestive heart failure, cardiorenal syndrome, transaminitis with concerns of congestive hepatomegaly, subclinical hypothyroidism, cardiogenic shock Critical Care Time: The high probability of a clinically significant, sudden or life threatening deterioration of the patient's [Cardic, renal, hepatic, pulmonary] system(s) required my full and direct attention, intervention and personal management. The critical care time is as shown. This time is in addition to time spent performing any reported procedures but includes the following: [x] Data and vital sign review and interpretation [x] Patient assessment, examination and intervention [x] Documentation [x] Medication orders and management Critical Care Time (min): 70 Coding Level of Care Code Critical Care >/= 30 minutes Critical care time (in minutes): 70 The high probability of a clinically significant, sudden or life threatening deterioration, as referenced in this documentation, required my full and direct attention, intervention and personal management. The critical care time shown is in addition to time spent performing any reported separately billable procedures and includes the following: [x] Data and vital sign review and interpretation [x ] Patient assessment, examination and intervention [x] Medication orders and management [x] Patient/Family updates as able [x] Care Coordination and Documentation. Other Coding Information This patient has a high probability of clinically significant, sudden or life threatening deterioration of the patient's (neurological/pulmonary/cardiac/renal/ID/endocrine) systems required my full, direct attention, the highest level of physician preparedness for urgent intervention and personal management. I managed/supervised life or organ supporting interventions that required frequent physician assessment. I devoted my full attention in the ICU to the direct care of this patient for the period of time indicated above. Time I spent with family or surrogate(s) is included only if the patient was incapable of providing necessary information or participating in decision making. This time includes the following services provided: Telemetry review Hemodynamic interpretation, assessment and management Review and interpretation of CXR Review and interpretation of lab values Review and interpretation of microbiologic data and culture results Review of medications and administration Review and interpretation of Nutrition requirements and management Discussion of management with other consultants and services Clinical update to family members Diagnoses Acute hypoxic respiratory failure J96.01 Cardiogenic shock R57.0 Ischemic cardiomyopathy I25.5 Cardiorenal syndrome with renal failure I13.10 Transaminitis R74.01 Hyperkalemia E87.5 Subclinical hypothyroidism E03.8 Elevated lactic acid level R79.89 Nonrheumatic mitral valve regurgitation I34.0 Cardiac valve disease etiology: nonrheumatic Dyslipidemia E78.5 Acute renal insufficiency N28.9 Hyperbilirubinemia E80.6 Hx of CABG Z95.1
--- NOTE | 2025-01-12 11:23 | XR_ITS ---
WS: [id number] Exam: XR chest 1V portable [id number] Date/Time of Exam: 01/12/2025 11:23 AM Reason For Exam: Post PICC insertion Comparison 01/11/2025. A right-sided PICC line has been placed and appears to and near the cavoatrial junction in good position. Infiltrates are noted in the bilateral lung bases. No pneumothorax. Mild cardiac enlargement. Signs of previous CABG surgery. Bony structures are intact. Small LEFT pleural effusion unchanged. XR/XR chest 1V portable [id number] IMPRESSION: 1. Right-sided PICC line ending at the expected region of the cavoatrial juncti on. 2. Unchanged bibasilar infiltrates and LEFT basal pleural effusion. Mild cardia c enlargement.
--- NOTE | 2025-01-12 11:31 | ECG_ITS ---
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 Measurements Intervals [place] Rate: 100 P: 0 OH: 0 QRS: 165 QRSD: 149 T: 82 QT: 394 QTc: 508 Interpretive Statements ATRIAL FIBRILLATION WITH RAPID VENTRICULAR RESPONSE WITH ABERRANT CONDUCTION OR VENTRICULAR PREMATURE COMPLEXES INDETERMINATE AXIS INTRAVENTRICULAR CONDUCTION DELAY [130+ ms QRS DURATION] Compared to ECG 01/12/2025 03:01:38 Ventricular premature complex(es) now present Aberrant conduction of supraventricular beat(s) now present Indeterminate axis now present Sinus rhythm no longer present First degree AV block no longer present Right-axis deviation no longer present Electronically Signed On 01-14-2025 19:52:48 BROADCAST DESIGNER by Oh Quiroz M.D. [email or web address]
[2025-01-12 11:36] LABS: Magnesium 2.5 mg/dL (1.7-2.3)
--- NOTE | 2025-01-12 12:32 | PICC.NOTE ---
Triple lumen PICC placed to right basilic vein. Referred to vascular access nurse for PICC placement due to use of vasopressors and heparin. Risks and benefits discussed and informed consent obtained from pt. Right arm assessed with right basilic vein measuring 4.6 mm, straight, and apparent best choice for placement. Using sterile technique and MST, right basilic vein accessed x 1 stick. Mid-arm circumference measured 10 cm from right AC 27 cm. Trimmed cath 40 cm with 1 cm external length noted. CXR shows tip in cavoatrial junction, in good position for use per radiologist. Line secured with stat-lock. Insertion site covered with Biopatch and TSM. Report given to bedside nurse, LUIS ENRIQUE Gan.
[2025-01-12 12:51] LABS: Lactate (Lactic Acid level) 4.6 mmol/L (0.5-2.2)
--- NOTE | 2025-01-12 13:08 | PC.NURSE ---
Received order for lasix gtt from Dr. Mackenzie, DC'd IVP lasix, orders placed see MAY.
--- NOTE | 2025-01-12 13:55 | PC.SLP ---
Patient is currently on BiPAP after lunch. LEGISLATORS will try to assess at a later time.
[2025-01-12 14:26] LABS: MRSA PCR OZH (swab) NOT DETECTED (Negative)
[2025-01-12 18:19] LABS: Partial Thromboplastin Time 67.2 SECONDS (23.9-36.7)
[2025-01-12 18:22] LABS: Anion Gap 21.3 (5-19); Blood Urea Nitrogen 56 mg/dL (8-23); Calcium 9.1 mg/dL (8.5-10.5); Carbon Dioxide 26 mmol/L (22-29); Chloride 93 mmol/L (98-107); Glucose 89 mg/dL (65-115); Osmolality Calculated 299 mOsm/kg (285-295); Potassium 3.3 mmol/L (3.5-5.1); Sodium 137 mmol/L (136-145)
--- NOTE | 2025-01-12 21:06 | US_ITS ---
WS: [id number] Complete ABDOMINAL ULTRASOUND HISTORY: evaluate liver COMPARISON: CT 01/11/2025 Liver: 14.1 cm in length. Normal size liver and echogenicity. No bile duct dilatation or mass. Portal Vein: Normal hepatopetal flow with monophasic waveform. Gallbladder: Abnormal gallbladder. Gallbladder is filled with echogenic debris with top normal wall measurement at 3 mm. No shadowing within the gallbladder. On the recent CT there was no pericholecystic fluid. CBD: 0.4 cm Pancreas: Obscured. Right kidney: 10.9 cm x 4.9 x 4.9 cm. Cortex:1.4 cm. Normal size kidney. No obstruction. Cortical cyst. No solid mass. Left kidney: 9.7 cm x 4.9 cm x 7.2 cm. Cortex: 1.3 cm. Normal size kidney with cortical cysts. No mass or obstruction. Spleen: 7.0 cm. Normal size and echogenicity. Aorta and IVC: Unremarkable abdominal aorta and IVC. Bilateral pleural effusions are identified. US/US abdomen complete* [id number] Impression: 1. Abnormal gallbladder. Sludge filled gallbladder. No stones identified or sh adowing. Top normal gallbladder wall size. On the recent CT there was no perich olecystic fluid. Changes in the gallbladder may be due to prolonged fasting sta te. 2. Normal common bile duct. 3. No intrahepatic duct dilatation. 4. Bilateral renal cysts with no renal obstruction. 5. Bilateral pleural effusions, RIGHT greater than LEFT, small to moderate.
--- NOTE | 2025-01-12 21:06 | USCV_ITS ---
Israel Shaw Age: 79 Gender: M : 1945 Exam Date: 01/12/2025 03:05 Ordering Phys: Jaime Parra MD Technologist: BROOKE [place] [facility] [place]: cardiogenic shock, History of ischemic CM, CAD, MR, CABG, BLE edema. BP: 116 / 74 HR: 82 Rhythm: Atrial fibrillation Technical Quality: Adequate MEASUREMENTS (Male / Female) Normal Values 2D ECHO LV Diastolic Diameter PLAX 4.8 cm 4.2 - 5.9 / 3.9 - 5.3 cm IVS Diastolic Thickness 1.2 cm 0.6 - 1.0 / 0.6 - 0.9 cm IVS Systolic Thickness 0.8 cm LVPW Diastolic Thickness 1.2 cm 0.6 - 1.0 / 0.6 - 0.9 cm LVPW Systolic Thickness 1.4 cm LVOT Diameter 2.0 cm LV Ejection Fraction 2D Teich 15.9 % LV Ejection Fraction MOD 4C 6.6 % LV Ejection Fraction MOD 2C 23.6 % LV Ejection Fraction 2C AL 24.6 % LA Diameter 5.3 cm Aorta at Sinotubular Diameter 2.9 cm IVC Diameter 2.3 cm M-MODE LA Ao Ratio MM 1.8 AV Cusp Separation MM 1.9 cm DOPPLER AV Peak Velocity 76.0 cm/s LVOT Peak Velocity 39.0 cm/s AV Area Cont Eq vti 1.5 cm squared AV Area Cont Eq pk 1.7 cm squared MV Peak Velocity 86.0 cm/s MV Area PHT 3.8 cm squared Mitral E to A Ratio 0.0 TV Peak Velocity 246.7 cm/s TR Peak Velocity 254.0 cm/s TR Peak Gradient 25.8 mmHg TV Peak E Velocity 35.0 cm/s PV Peak Velocity 71.0 cm/s FINDINGS Left Ventricle Mildly increased left ventricular cavity size. Severely decreased left ventricular systolic function. Left ventricular ejection fraction is 15%. Mild left ventricular hypertrophy. Indeterminate diastolic function due to atrial fibrillation Right Ventricle Moderately enlarged right ventricular cavity. Moderate reduction in right ventricular systolic function. Mild pulmonary hypertension, RVSP 40 mmHg. Right Atrium Normal right atrial size. Left Atrium Severely increased left atrial size. IA Septum Normal interatrial septum. Mitral Valve Severe mitral valve regurgitation. Aortic Valve Structurally normal trileaflet aortic valve. No aortic valve stenosis. Mild aortic valve regurgitation. Tricuspid Valve Mild tricuspid valve regurgitation. Pulmonic Valve [id number] pulmonary valve regurgitation. Pericardium No pericardial effusion. Aorta Normal size aortic root and proximal ascending aorta. IVC Dilated IVC with decreased respiratory variation. CONCLUSIONS 1. Mildly increased left ventricular cavity size. Severely decreased left ventricular systolic function with global hypokinesis. Left ventricular ejection fraction is 15%. 2. Moderately enlarged right ventricular cavity. Moderate reduction in right ventricular systolic function. 3. Mild pulmonary hypertension, RVSP 40 mmHg. 4. Severe mitral valve regurgitation. Reinier Man MD, FACC (Electronically Signed) Final Date: 12 January 2025 18:09 S
[2025-01-12] MEDS: FUROsemide 200 MG in sodium chloride 0.9% (100 ml) 80 ML 10 MG IV (22:05)
[2025-01-13] VITALS (88 sets, daily range): BP systolic 87–136; BP diastolic 48–96; PULSE 87–110; RESP 8–29; TEMP 36.5; O2SAT 92–100
[2025-01-13] MEDS: ondansetron 2 mg/ML SDV 2 mL 4 MG IVP ×4 (01:41→21:22)
[2025-01-13 02:21] LABS: Partial Thromboplastin Time 61.1 SECONDS (23.9-36.7)
[2025-01-13] MEDS: DOBUTamine drip 500 MG/250 ML PREMIX 11.85 MG IV (03:59)
[2025-01-13 05:12] LABS: Hematocrit 30.4 % (37-53); Hemoglobin 9.70 g/dL (11.27-16.99); Mean Corpuscular HGB Conc 31.9 g/dL (30-55); Mean Corpuscular Hemoglobin 31.3 pg (27-33); Mean Corpuscular Volume 98.1 fl (82-101); Nucleated Red Blood Cells % 0 %; Platelet Count 166 10^3/cmm (157-399); Red Blood Count 3.10 10^6/uL (3.85-5.65); White Blood Count 20.17 10^3/uL (3.29-11.43)
[2025-01-13 05:30] LABS: Alanine Aminotransferase 21 U/L (0-41); Albumin Level 3.6 g/dL (3.5-5.2); Alkaline Phosphatase 105 U/L (40-130); Anion Gap 15.5 (5-19); Aspartate Amino Transferase 19 U/L (0-40); Blood Urea Nitrogen 22 mg/dL (8-23); Calcium 8.9 mg/dL (8.5-10.5); Carbon Dioxide 27 mmol/L (22-29); Chloride 104 mmol/L (98-107); Globulin 2.5 g/dL (1.3-4.6); Glucose 115 mg/dL (65-115); Osmolality Calculated 300 mOsm/kg (285-295); Potassium 3.5 mmol/L (3.5-5.1); Sodium 143 mmol/L (136-145); Total Protein 6.1 g/dL (6.6-8.7)
[2025-01-13 05:31] LABS: Magnesium 2.2 mg/dL (1.7-2.3)
[2025-01-13] MEDS: piperacillin-tazobactam 3.375 GM in sodium chloride 0.9% (plus) 50 ML IV ×3 (05:58→22:56)
[2025-01-13] MEDS: albumin 25 G/100 ML BAG 60 G IV ×3 (05:59→21:44)
[2025-01-13 08:50] LABS: Hematocrit 38.7 % (37-53); Hemoglobin 13.00 g/dL (11.27-16.99); Mean Corpuscular HGB Conc 33.6 g/dL (30-55); Mean Corpuscular Hemoglobin 30.2 pg (27-33); Mean Corpuscular Volume 90.0 fl (82-101); Nucleated Red Blood Cells % 0 %; Platelet Count 147 10^3/cmm (157-399); Red Blood Count 4.30 10^6/uL (3.85-5.65); White Blood Count 9.40 10^3/uL (3.29-11.43)
[2025-01-13 09:07] LABS: Slide Review Slide Review Perform
[2025-01-13 09:13] LABS: Alanine Aminotransferase 403 U/L (0-41); Albumin Level 4.4 g/dL (3.5-5.2); Alkaline Phosphatase 124 U/L (40-130); Blood Urea Nitrogen 51 mg/dL (8-23); Calcium 9.1 mg/dL (8.5-10.5); Carbon Dioxide 29 mmol/L (22-29); Chloride 88 mmol/L (98-107); Globulin 1.5 g/dL (1.3-4.6); Glucose 100 mg/dL (65-115); Osmolality Calculated 294 mOsm/kg (285-295); Sodium 135 mmol/L (136-145); Total Protein 5.9 g/dL (6.6-8.7)
[2025-01-13 09:26] LABS: Anion Gap 22.1 (5-19); Aspartate Amino Transferase 313 U/L (0-40); Potassium 4.1 mmol/L (3.5-5.1)
[2025-01-13 10:01] LABS: Partial Thromboplastin Time 57.4 SECONDS (23.9-36.7)
[2025-01-13 10:03] LABS: Lactic Sepsis W/Reflex 1.4 mmol/L (0.5-2.2)
[2025-01-13] MEDS: pantoprazole 40 mg SDV IVP ×2 (10:18→21:44)
--- NOTE | 2025-01-13 10:21 | P.PN_ITS ---
<Statement entered by Oh Quiroz M.D - 01/15/25 19:45> Patient was cared for in conjunction with an advanced practice practitioner. I reviewed the chart and all pertinent data including imaging, telemetry, and laboratory results. I discussed the patient in detail with the advanced practice practitioner. Please see their note for agreed upon plan of care and results for the patient. Subjective 2 Subjective: LVEF decreased to 15% on echocardiogram yesterday. He has had good diuresis, - 1833 for the last 24 hrs, -1228 cumulative. Morning labs appeared erroneous, recheck at 830 this morning showed hemoglobin 13, potassium 4.1, BUN 51, creatinine 1.8. AST 313, ALT 403. He still has intermittent shortness of breath. No chest pain. Vitals/I&O/Wt Last Vital Signs Temp 97.7 F 01/13/25 07:45 Pulse 100 01/13/25 07:45 Resp 19 H 01/13/25 07:45 BP 119/65 01/13/25 07:45 Pulse Ox 94 01/13/25 07:45 O2 Del Method Nasal Cannula 01/13/25 07:45 O2 Flow Rate 3 01/13/25 07:45 FiO2 40 01/12/25 15:14 01/12/25 01/13/25 01/13/25 22:59 06:59 14:59 Intake Total 1317 / 4591.578 1734.578 / 4591.578 77.2 / 77.2 Output Total 725 / 5925 2950 / 5925 Balance 592 / -1333.422 -1215.422 / -1333.422 77.2 / 77.2 Weight last 48 hrs Weight 173 lb 4.533 oz Weight 174 lb 2.643 oz Weight 174 lb 2.643 oz Weight 182 lb Physical Exam 2 Const: COMMON NORMALS: no acute distress and patient oriented x3 GENERAL APPEARANCE: cooperative and comfortable ORIENTATION/CONSCIOUSNESS: Yes awake, Yes oriented to person, Yes oriented to place and Yes oriented to time Chest: COMMONS NORMALS: normal inspection of the chest and normal palpation of entire chest wall CHEST: Yes Symmetrical chest wall rise Resp: COMMON NORMALS: normal respiratory effort, No retractions and No use of accessory muscles EFFORT & INSPECTION: Yes symmetric chest movement A USCULTATION: rhonchi throughout Cardio: COMMON NORMALS: regular rate, regular rhythm, S1 normal heart sound present, S2 normal heart sound present, No gallops present (Cardio), No clicks present (Cardio), No murmurs present (Cardio) and No rub (Cardio) RATE: r egular rate RHYTHM: regular rhythm HEART SOUNDS: S1 normal heart sound present and S2 normal heart sound present PERIPHERAL PULSES: radial pulses present Extremity: COMMON NORMALS: no pedal edema Neuro: COMMON NORMALS: patient oriented x3 and moves all extremities S ENSORIUM/ORIENTATION: Yes oriented to person, Yes oriented to place and Yes oriented to time Urinary Catheter Management: Rice: Cath Placed During This Visit: yes, but has since been removed by the nurse Reason for Continuing Indwelling Catheter: Decision to DC Catheter Urinary Catheter Date of Insertion: 01/12/25 Urinary Catheter Time of Insertion: 05:34 Date Urinary Catheter Removed: 01/12/25 Time Urinary Catheter Discontinued: 17:00 Rice Latex: Cath Placed During This Visit: yes Reason for Continuing Indwelling Catheter: Accurate Measurement of Urinary Output in Critically Ill Patients Urinary Catheter Date of Insertion: 01/12/25 Urinary Catheter Time of Insertion: 17:10 Data 01/13/25 08:30 01/13/25 08:30 A&P Assessment and plan 1. Hx of CAB. Cardiogenic shock: 3. Acute on chronic congestive heart failure: 4. Atherosclerotic heart disease of [place] coronary artery without angina pectoris: 5. History of hypertension: 6. Severe mitral regurgitation: Plan: Although he has decrease in LV function, he has 1 patent vessel REY to LAD known from previous coronary angiogram in June of this year. Will continue medical management of systolic congestive heart failure. Continue dobutamine infusion, currently at 5 mcg/kg/min, Lasix infusion at 10 mg/h, heparin infusion. He is diuresing fairly well, -1800 mL for the last 24 hours. Appreciate goals of care discussion with patient and family. PDMP PDMP Reviewed: Not Reviewed Attestations 2 Medical Necessity Statement*: Worsening systolic heart failure requiring dobutamine and Lasix drip Coding Level of Care Code Acute Code for Chg Fwd Diagnoses Hx of CABG Z95.1 Cardiogenic shock R57.0 Acute on chronic congestive heart failure I50.9 Atherosclerotic heart disease of [place] coronary artery without angina pectoris I25.10 History of hypertension Z86.79 Severe mitral regurgitation I34.0
--- NOTE | 2025-01-13 10:53 | PM.PN ---
Subjective Subjective: No acute events overnight. Patient has remained hemodynamically stable and afebrile. Appreciate urine output yesterday. Denies any nausea, vomiting, headache. States breathing is slightly better. As per nursing staff having multiple episodes of bowel movements. Vitals/I&O/Wt Last Vital Signs Temp 97.7 F 01/13/25 07:45 Pulse 98 01/13/25 10:15 Resp 20 H 01/13/25 10:15 BP 109/65 01/13/25 10:15 Pulse Ox 97 01/13/25 10:15 O2 Del Method Nasal Cannula 01/13/25 10:15 O2 Flow Rate 3 01/13/25 07:45 FiO2 40 01/12/25 15:14 01/12/25 01/13/25 01/13/25 22:59 06:59 14:59 Intake Total 1317 / 2857 1734.578 / 4591.578 77.2 / 77.2 Output Total 725 / 2975 2950 / 5925 Balance 592 / -118 -1215.422 / -1333.422 77.2 / 77.2 Weight last 48 hrs Weight 78.6 kg Weight 79 kg Weight 79 kg Weight 82.554 kg Physical Exam Narrative: General: No acute distress, AO x3, chronically sick appearing HEENT: PERRLA, pupils bilaterally equal and reactive Chest: Bilateral bronchial breath in the lower lung turk with decreased air entry in bilateral lower zone, fine crackles up to mid chest CVS: S1-S2 regular, pansystolic murmur at apex 3/6 up to mid anterior axillary line, no tachycardia, no gallops, no rubs Abdomen: Soft, nontender, no organomegaly, bowel sounds present Neuro: No focal deficits, no facial deformity, AO x3, power 5/5 in all limbs Urinary Catheter Management: Rice: Cath Placed During This Visit: yes, but has since been removed by the nurse Reason for Continuing Indwelling Catheter: Decision to DC Catheter Urinary Catheter Date of Insertion: 01/12/25 Urinary Catheter Time of Insertion: 05:34 Date Urinary Catheter Removed: 01/12/25 Time Urinary Catheter Discontinued: 17:00 Rice Latex: Cath Placed During This Visit: yes Reason for Continuing Indwelling Catheter: Accurate Measurement of Urinary Output in Critically Ill Patients Urinary Catheter Date of Insertion: 01/12/25 Urinary Catheter Time of Insertion: 17:10 Data 01/13/25 08:30 01/13/25 08:30 A&P Assessment and plan 1. Acute hypoxic respiratory failure: 2. Cardiogenic shock: 3. Ischemic cardiomyopathy: 4. Cardiorenal syndrome with renal failure: 5. Transaminitis: 6. Hyperkalemia: 7. Subclinical hypothyroidism: 8. Elevated lactic acid level: 9. Nonrheumatic mitral valve regurgitation: 10. Dyslipidemia: 11. Acute renal insufficiency: 12. Hyperbilirubinemia: 13. Hx of CABG: Plan: Acute hypoxic respiratory failure - Secondary to ischemic cardiac, systolic CHF Chest pain - With NSTEMI - With history of ischemic cardiomyopathy Aspirin, statin, Plavix - Heparin drip - Cardiac echo Cardiogenic shock - With ischemic cardiomyopathy, ejection fraction on coronary angiogram 06/2024 was 35 to 40% Sepsis? -Source of infection unclear Acute kidney injury on CKD - Etiology multifactorial - Component of cardiorenal syndrome - Monitor for contrast-induced nephropathy Transaminitis with hyperbilirubinemia I had a detailed discussion with [place] about his goals of care - I am worried that he is in cardiogenic shock, with cardiorenal syndrome, with severe congestive hepatopathy with evidence of acute kidney failure, acute liver failure, with acute systolic CHF and morbidity and mortality associated - He already has a history of ischemic cardiomyopathy EF 25 to 30% - Discussed morbidity and mortality, he voiced understanding, all question answered, decision making, for now he wants to remain a full code Plan for the day: Cardiogenic shock in setting of ischemic cardiomyopathy. Repeat echocardiogram shows an EF of 15% with mild LVH, enlarged LV with PASP of 40 mmHg. Mild improvement in renal functions and LFTs today. Lactate normal. For now we will continue with dobutamine drip, Lasix drip. Will dose metolazone depending on urine output by the evening. Fluid restriction to 1500 cc. Again iterated with patient in detail regarding need for stricter fluid restriction. Repeat BMP in afternoon. Monitor potassium. Hyperkalemia resolved today. Patient is cardiology recommendations. MRSA swab negative. Vancomycin discontinued. Continue with Zosyn for now. Continue levothyroxine. Appreciate speech evaluation. Advance diet as per the recommendation. Concern for cognitive decline. BIMS study 07/15. Case management consultation for possible placement to SNF. Patient agreeable. Will request for DPOA paperwork. Had detailed goals of care discussion with the patient. Discussed he does have significant congestive heart failure with cardiogenic shock which is most likely ischemic though unfortunately given his last cardiac angiogram medical management is still only option. We discussed that if he does not improve with 3 days of dobutamine, hospice is also an option. Patient verbalized understanding is agreeable for trial of 3 days of treatment. Analgesia:Morphine Glycemic control: Not needed Nutrition: Mech soft diet CODE STATUS: Full code PUD prophylaxis: Protonix DVT prophylaxis: Heparin drip will be sufficient Discharge planning: As per clinical status Continue with care at ICU This documentation was created by [employer] unit reactor operator software. Every effort was made to ensure accuracy of unit reactor operator. Any obvious errors or omissions should be clarified with the author of the document. PDMP PDMP Reviewed: Not Reviewed Attestations Medical Necessity Statement*: Requires further hospitalization for management of congestive heart failure, cardiorenal syndrome, transaminitis with concerns of congestive hepatomegaly, subclinical hypothyroidism, cardiogenic shock Critical Care Time: The high probability of a clinically significant, sudden or life threatening deterioration of the patient's [cardiac, pulmonary, renal] system(s) required my full and direct attention, intervention and personal management. The critical care time is as shown. This time is in addition to time spent performing any reported procedures but includes the following: [x] Data and vital sign review and interpretation [x] Patient assessment, examination and intervention [x] Documentation [x] Medication orders and management Critical Care Time (min): 75 Coding Level of Care Code Critical Care >/= 30 minutes Critical care time (in minutes): 75 The high probability of a clinically significant, sudden or life threatening deterioration, as referenced in this documentation, required my full and direct attention, intervention and personal management. The critical care time shown is in addition to time spent performing any reported separately billable procedures and includes the following: [x] Data and vital sign review and interpretation [x] Patient assessment, examination and intervention [x] Medication orders and management [x] Patient/Family updates as able [x] Care Coordination and Documentation. Other Coding Information This patient has a high probability of clinically significant, sudden or life threatening deterioration of the patient's (neurological/pulmonary/cardiac/renal/ID/endocrine) systems required my full, direct attention, the highest level of physician preparedness for urgent intervention and personal management. I managed/supervised life or organ supporting interventions that required frequent physician assessment. I devoted my full attention in the ICU to the direct care of this patient for the period of time indicated above. Time I spent with family or surrogate(s) is included only if the patient was incapable of providing necessary information or participating in decision making. This time includes the following services provided: Telemetry review Hemodynamic interpretation, assessment and management Review and interpretation of CXR Review and interpretation of lab values Review and interpretation of microbiologic data and culture results Review of medications and administration Review and interpretation of Nutrition requirements and management Discussion of management with other consultants and services Clinical update to family members Diagnoses Acute hypoxic respiratory failure J96.01 Cardiogenic shock R57.0 Ischemic cardiomyopathy I25.5 Cardiorenal syndrome with renal failure I13.10 Transaminitis R74.01 Hyperkalemia E87.5 Subclinical hypothyroidism E03.8 Elevated lactic acid level R79.89 Nonrheumatic mitral valve regurgitation I34.0 Cardiac valve disease etiology: nonrheumatic Dyslipidemia E78.5 Acute renal insufficiency N28.9 Hyperbilirubinemia E80.6 Hx of CABG Z95.1
[2025-01-13] MEDS: saliva stimulant spray 30 mL Btl 1 SPRAY MUCOUS MEM (12:41)
[2025-01-13 16:03] LABS: C.Diff PCR (Lab) NEGATIVE (Negative)
[2025-01-13] MEDS: FUROsemide 200 MG in sodium chloride 0.9% (100 ml) 80 ML 10 MG IV (17:52)
[2025-01-13 19:05] LABS: Anion Gap 22.0 (5-19); Blood Urea Nitrogen 53 mg/dL (8-23); Calcium 9.2 mg/dL (8.5-10.5); Carbon Dioxide 29 mmol/L (22-29); Chloride 88 mmol/L (98-107); Glucose 120 mg/dL (65-115); Osmolality Calculated 298 mOsm/kg (285-295); Potassium 3.0 mmol/L (3.5-5.1); Sodium 136 mmol/L (136-145)
[2025-01-13 19:07] LABS: Partial Thromboplastin Time 83.0 SECONDS (23.9-36.7)
[2025-01-13] MEDS: heparin drip 25,000 UNIT/500 ML PREMIX 10 UNIT IV (20:08)
[2025-01-13] MEDS: lidocaine 1% 5 ML in potassium chloride premix 100 ML 26.25 ML IV (21:44)
[2025-01-14] VITALS (94 sets, daily range): BP systolic 85–137; BP diastolic 45–91; PULSE 83–105; RESP 10–35; TEMP 36.1–36.2; O2SAT 81–100
[2025-01-14] MEDS: DOBUTamine drip 500 MG/250 ML PREMIX 11.85 MG IV ×2 (01:27→20:54)
[2025-01-14] MEDS: metoclopramide 5 mg/mL SDV 2 mL IVP ×2 (01:30→21:11)
[2025-01-14] MEDS: dexmedeTOMIDine 0.9 % NaCL 400 MCG/100 ML PREMIX IV (01:50)
[2025-01-14 02:11] LABS: Hematocrit 38.5 % (37-53); Hemoglobin 12.80 g/dL (11.27-16.99); Mean Corpuscular HGB Conc 33.2 g/dL (30-55); Mean Corpuscular Hemoglobin 29.7 pg (27-33); Mean Corpuscular Volume 89.3 fl (82-101); Nucleated Red Blood Cells % 0 %; Platelet Count 133 10^3/cmm (157-399); Red Blood Count 4.31 10^6/uL (3.85-5.65); White Blood Count 8.45 10^3/uL (3.29-11.43)
[2025-01-14] MEDS: FUROsemide 10 mg/mL SDV 4mL 40 MG IVP ×2 (02:12→13:35)
[2025-01-14 02:34] LABS: Alanine Aminotransferase 361 U/L (0-41); Albumin Level 5.0 g/dL (3.5-5.2); Alkaline Phosphatase 135 U/L (40-130); Aspartate Amino Transferase 240 U/L (0-40); Blood Urea Nitrogen 47 mg/dL (8-23); Calcium 9.6 mg/dL (8.5-10.5); Carbon Dioxide 29 mmol/L (22-29); Chloride 86 mmol/L (98-107); Globulin 1.6 g/dL (1.3-4.6); Glucose 98 mg/dL (65-115); Osmolality Calculated 292 mOsm/kg (285-295); Partial Thromboplastin Time 60.9 SECONDS (23.9-36.7); Sodium 135 mmol/L (136-145); Total Protein 6.6 g/dL (6.6-8.7)
[2025-01-14 02:35] LABS: Magnesium 2.2 mg/dL (1.7-2.3)
[2025-01-14 02:40] LABS: Anion Gap 23.6 (5-19); Potassium 3.6 mmol/L (3.5-5.1)
--- NOTE | 2025-01-14 03:03 | PC.NURSE ---
Physician ordered lasix drip to be discontinued. Drip stopped for short period of time. Patient then started to experienced shortness of breath and started to become fearful. Oxygen saturation started to drop so patient placed back on Bipap. Patient became more anxious. Physician notified and orders for precedex placed.
[2025-01-14 06:14] LABS: ABG PCO2 39.1 mmHg (35-45); ABG PH Result 7.53 (7.35-7.45); Arterial Blood Gas Hematocrit 40.8 % (42-52); Blood Gas Allen Test Pos; Blood Gas LPM 3.0 %; Blood Gas Operator Identificat SAM; Blood Gas Sample Site Radial, right; Blood Gas Sample Type Arterial; HCO3 ABG 32.7 mmol/L (22-26); PO2 ABG 76.2 mmHg (80.0-100.0)
[2025-01-14] MEDS: albumin 25 G/100 ML BAG 60 G IV ×3 (06:48→22:32)
[2025-01-14] MEDS: piperacillin-tazobactam 3.375 GM in sodium chloride 0.9% (plus) 50 ML IV ×3 (06:48→22:33)
--- NOTE | 2025-01-14 07:24 | XR_ITS ---
WS: [id number] Exam: XR chest 1V portable [id number] Date/Time of Exam: 01/14/2025 8:46 AM Reason For Exam: Possible aspiration Comparison 01/12/2025. Bibasal infiltrates are unchanged. Mild cardiac enlargement stable. No pneumothorax. Right-sided PICC line remains in satisfactory position. Bony structures are intact. Status post CABG surgery. XR/XR chest 1V portable [id number] IMPRESSION: 1. Chest x-ray unchanged since the last exam.
--- NOTE | 2025-01-14 07:27 | PC.NURSE ---
Dr. Mackenzie ordered to stop the precedex drip.
[2025-01-14 09:22] LABS: Partial Thromboplastin Time 59.4 SECONDS (23.9-36.7)
--- NOTE | 2025-01-14 10:29 | P.PN_ITS ---
<Statement entered by Oh Quiroz M.D - 01/15/25 19:52> Patient was cared for in conjunction with an advanced practice practitioner. I reviewed the chart and all pertinent data including imaging, telemetry, and laboratory results. I discussed the patient in detail with the advanced practice practitioner. Please see their note for agreed upon plan of care and results for the patient. Subjective 2 Subjective: No significant chest pain. Breathing feels better. No edema. Liver enzymes improved. Creatinine stable, 2.3. No diuretics ordered for today, still utilizing dobutamine. He is -1524mL for the last 24 hours, -3512 cumulative. Vitals/I&O/Wt Last Vital Signs Temp 97.1 F L 01/14/25 08:00 Pulse 86 01/14/25 08:00 Resp 16 01/14/25 08:00 BP 135/76 01/14/25 08:00 Pulse Ox 99 01/14/25 08:00 O2 Del Method Nasal Cannula 01/14/25 08:00 O2 Flow Rate 3 01/14/25 08:00 FiO2 40 01/14/25 01:25 01/13/25 01/14/25 01/14/25 22:59 06:59 14:59 Intake Total 218.95 / 5590.255 9393.349 / 1873.520 571.783 / 571.783 Output Total 1150 / 3200 Balance -931.05 / -9140.131 4419.349 / -1326.480 571.783 / 571.783 Weight last 48 hrs Weight 171 lb 15.369 oz Weight 173 lb 4.533 oz Physical Exam 2 Const: COMMON NORMALS: no acute distress and patient oriented x3 GENERAL APPEARANCE: cooperative and comfortable ORIENTATION/CONSCIOUSNESS: Yes awake, Yes oriented to person, Yes oriented to place and Yes oriented to time Chest: COMMONS NORMALS: normal inspection of the chest and normal palpation of entire chest wall CHEST: Yes Symmetrical chest wall rise Resp: COMMON NORMALS: normal respiratory effort, No retractions and No use of accessory muscles EFFORT & INSPECTION: Yes symmetric chest movement A USCULTATION: crackles Laterality: left and posterior and rhonchi right upper and right lower Cardio: COMMON NORMALS: regular rate, regular rhythm, S1 normal heart sound present, S2 normal heart sound present, No gallops present (Cardio), No clicks present (Cardio), No murmurs present (Cardio) and No rub (Cardio) RATE: r egular rate RHYTHM: regular rhythm HEART SOUNDS: S1 normal heart sound present and S2 normal heart sound present PERIPHERAL PULSES: radial pulses present Extremity: COMMON NORMALS: no pedal edema Neuro: COMMON NORMALS: patient oriented x3 and moves all extremities S ENSORIUM/ORIENTATION: Yes oriented to person, Yes oriented to place and Yes oriented to time Urinary Catheter Management: Rice: Cath Placed During This Visit: yes, but has since been removed by the nurse Reason for Continuing Indwelling Catheter: Decision to DC Catheter Urinary Catheter Date of Insertion: 01/12/25 Urinary Catheter Time of Insertion: 05:34 Date Urinary Catheter Removed: 01/12/25 Time Urinary Catheter Discontinued: 17:00 Rice Latex: Cath Placed During This Visit: yes Reason for Continuing Indwelling Catheter: Accurate Measurement of Urinary Output in Critically Ill Patients Urinary Catheter Date of Insertion: 01/12/25 Urinary Catheter Time of Insertion: 17:10 Data 01/14/25 01:55 01/14/25 01:55 A&P Assessment and plan 1. Hx of CAB. Cardiogenic shock: 3. Severe mitral regurgitation: 4. History of hypertension: 5. 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 Subclinical hypothyroidism: 7. Transaminitis: Plan: Continue dobutamine infusion at 5mcg. Stop heparin infusion, 48hrs post troponin elevation, no history of atrial fibrillation or other indication for heparin. He is diuresing well. 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
--- NOTE | 2025-01-14 12:23 | PC.SOCIAL ---
IMM Update pg 2 of IMM Updated and reviewed w/ patient. Copy provided and copy dated, initialed and placed in chart.
[2025-01-14] MEDS: pantoprazole 40 mg SDV IVP ×2 (13:44→22:33)
--- NOTE | 2025-01-14 14:03 | P.PN_ITS ---
Subjective 2 Subjective: Overnight patient was started on Precedex drip given concerns for mild confusion and difficulty in breathing. Patient has remained hemodynamically stable and afebrile. Currently on dobutamine of 5, heparin drip. Appreciate urine output. Currently on 1 L of oxygen supplementation. Appreciate vitals. Vitals/I&O/Wt Last Vital Signs Temp 97.1 F L 01/14/25 08:00 Pulse 94 01/14/25 12:00 Resp 29 H 01/14/25 12:00 BP 113/72 01/14/25 12:00 Pulse Ox 98 01/14/25 12:00 O2 Del Method Nasal Cannula 01/14/25 12:00 O2 Flow Rate 1 01/14/25 12:00 FiO2 40 01/14/25 01:25 01/13/25 01/14/25 01/14/25 22:59 06:59 14:59 Intake Total 218.95 / 786.15 1062.349 / 1848.499 786.116 / 786.116 Output Total 1150 / 3200 850 / 850 Balance -931.05 / -2413.85 1062.349 / -1351.501 -63.884 / -63.884 Weight last 48 hrs Weight 78 kg Weight 78.6 kg Physical Exam 2 Narrative: General: No acute distress, AO x3, chronically sick appearing HEENT: PERRLA, pupils bilaterally equal and reactive Chest: Bilateral bronchial breath in the lower lung turk with decreased air entry in bilateral lower zone, fine crackles up to mid chest CVS: S1-S2 regular, pansystolic murmur at apex 3/6 up to mid anterior axillary line, no tachycardia, no gallops, no rubs Abdomen: Soft, nontender, no organomegaly, bowel sounds present Neuro: No focal deficits, no facial deformity, AO x3, power 5/5 in all limbs Urinary Catheter Management: Rice: Cath Placed During This Visit: yes, but has since been removed by the nurse Reason for Continuing Indwelling Catheter: Decision to DC Catheter Urinary Catheter Date of Insertion: 01/12/25 Urinary Catheter Time of Insertion: 05:34 Date Urinary Catheter Removed: 01/12/25 Time Urinary Catheter Discontinued: 17:00 Rice Latex: Cath Placed During This Visit: yes Reason for Continuing Indwelling Catheter: Accurate Measurement of Urinary Output in Critically Ill Patients Urinary Catheter Date of Insertion: 01/12/25 Urinary Catheter Time of Insertion: 17:10 Data 01/14/25 01:55 01/14/25 01:55 A&P Assessment and plan 1. Acute hypoxic respiratory failure: 2. Cardiogenic shock: 3. Ischemic cardiomyopathy: 4. Cardiorenal syndrome with renal failure: 5. Transaminitis: 6. Hyperkalemia: 7. Subclinical hypothyroidism: 8. Elevated lactic acid level: 9. Severe mitral regurgitation: 10. Dyslipidemia: 11. Acute renal insufficiency: 12. Hyperbilirubinemia: 13. Hx of CABG: Plan: Acute hypoxic respiratory failure - Secondary to ischemic cardiac, systolic CHF Chest pain - With NSTEMI - With history of ischemic cardiomyopathy Aspirin, statin, Plavix - Heparin drip - Cardiac echo Cardiogenic shock - With ischemic cardiomyopathy, ejection fraction on coronary angiogram 06/2024 was 35 to 40% Sepsis? -Source of infection unclear Acute kidney injury on CKD - Etiology multifactorial - Component of cardiorenal syndrome - Monitor for contrast-induced nephropathy Transaminitis with hyperbilirubinemia I had a detailed discussion with [place] about his goals of care - I am worried that he is in cardiogenic shock, with cardiorenal syndrome, with severe congestive hepatopathy with evidence of acute kidney failure, acute liver failure, with acute systolic CHF and morbidity and mortality associated - He already has a history of ischemic cardiomyopathy EF 25 to 30% - Discussed morbidity and mortality, he voiced understanding, all question answered, decision making, for now he wants to remain a full code Plan for the day: Cardiogenic shock in setting of ischemic cardiomyopathy. Repeat echocardiogram shows an EF of 15% with mild LVH, enlarged LV with PASP of 40 mmHg. Stop precedex drip Continue dobutamine drip for now. Appreciate labs showing stable hemoglobin, white count. Labs showing mild concerns for dehydration with poor natremia and low chloride level, elevated BUN today as compared to yesterday. Hold off on Lasix drip. Changed to Lasix 60 mg q8h daily. Change fluid restriction to 1800 cc. Patient has been distressed because of stricter control. Will plan to keep at least 1 L negative in next 24 hours. If not able to will increase the dose of Lasix. Stable transaminitis despite improvement. Lactic acid within normal limits yesterday. Repeat lactate in AM. Change diet as per speech evaluation. Continue with IV antibiotics to finish a 5-day course. Care discussed in detail with patient's DPOA/brother Mr. Steven Shaw over the phone. We discussed unfortunately [place] is very sick with his new EF 15% which is most likely in setting of ischemic cardiomyopathy. Discussed he recently had cardiac angiogram in June in which he was found to have single patent graft for which he was advised medical management and currently he is in cardiogenic shock leading to multiorgan failure. Brother verbalizes understanding. States they were worried this situation might arise. CODE STATUS wants to be changed to DNR/DNI. We discussed we will try for dobutamine drip for overall 72 hours to see if there is any improvement in the labs and his symptoms. If he does not improve or if he starts having symptoms again after stopping dobutamine drip brother might consider hospice. Brother also request [place] to be transition to SNF. Drip: Dobutamine, Heparin Analgesia: Morphine Glycemic control: Not needed Nutrition: Mech soft diet CODE STATUS: DNR/DNI PUD prophylaxis: Protonix DVT prophylaxis: Heparin drip will be sufficient Discharge planning: As per clinical status Continue with care at ICU This documentation was created by [email or web address] windows technical specialist software. Every effort was made to ensure accuracy of windows technical specialist. Any obvious errors or omissions should be clarified with the author of the document. PDMP PDMP Reviewed: Not Reviewed Attestations 2 Medical Necessity Statement*: Requires further hospitalization for management of congestive heart failure, cardiorenal syndrome, transaminitis with concerns of congestive hepatomegaly, subclinical hypothyroidism, cardiogenic shock Critical Care Time: The high probability of a clinically significant, sudden or life threatening deterioration of the patient's [cardiac, pulmonary, renal] system(s) required my full and direct attention, intervention and personal management. The critical care time is as shown. This time is in addition to time spent performing any reported procedures but includes the following: [x] Data and vital sign review and interpretation [x] Patient assessment, examination and intervention [x] Documentation [x] Medication orders and management Critical Care Time (min): 65 Coding Level of Care Code Critical Care >/= 30 minutes Critical care time (in minutes): 65 The high probability of a clinically significant, sudden or life threatening deterioration, as referenced in this documentation, required my full and direct attention, intervention and personal management. The critical care time shown is in addition to time spent performing any reported separately billable procedures and includes the following: [x] Data and vital sign review and interpretation [x ] Patient assessment, examination and intervention [x] Medication orders and management [x] Patient/Family updates as able [x] Care Coordination and Documentation. Diagnoses Acute hypoxic respiratory failure J96.01 Cardiogenic shock R57.0 Ischemic cardiomyopathy I25.5 Cardiorenal syndrome with renal failure I13.10 Transaminitis R74.01 Hyperkalemia E87.5 Subclinical hypothyroidism E03.8 Elevated lactic acid level R79.89 Severe mitral regurgitation I34.0 Dyslipidemia E78.5 Acute renal insufficiency N28.9 Hyperbilirubinemia E80.6 Hx of CABG Z95.1
[2025-01-14] MEDS: FUROsemide 10 mg/mL SDV 10mL 60 MG IVP (17:37)
[2025-01-14 17:53] LABS: Blood Urea Nitrogen 49 mg/dL (8-23); Calcium 9.5 mg/dL (8.5-10.5); Carbon Dioxide 30 mmol/L (22-29); Chloride 82 mmol/L (98-107); Creatinine Clr Calc Pharmacy 31.2500; Glucose 219 mg/dL (65-115); Osmolality Calculated 286 mOsm/kg (285-295); Sodium 128 mmol/L (136-145)
[2025-01-14 17:56] LABS: Anion Gap 20.9 (5-19); Potassium 4.9 mmol/L (3.5-5.1)
[2025-01-15] VITALS (35 sets, daily range): BP systolic 90–136; BP diastolic 62–83; PULSE 86–107; RESP 13–30; TEMP 36.1–36.3; O2SAT 83–99
[2025-01-15] MEDS: FUROsemide 10 mg/mL SDV 10mL 60 MG IVP (02:20)
[2025-01-15 04:20] LABS: Hematocrit 38.2 % (37-53); Hemoglobin 12.60 g/dL (11.27-16.99); Mean Corpuscular HGB Conc 33.0 g/dL (30-55); Mean Corpuscular Hemoglobin 29.4 pg (27-33); Mean Corpuscular Volume 89.0 fl (82-101); Nucleated Red Blood Cells % 0 %; Platelet Count 102 10^3/cmm (157-399); Red Blood Count 4.29 10^6/uL (3.85-5.65); White Blood Count 7.44 10^3/uL (3.29-11.43)
[2025-01-15 04:41] LABS: Lactic Sepsis W/Reflex 2.6 mmol/L (0.5-2.2)
[2025-01-15 04:46] LABS: Reflex Lactate Order REFLEX LACTIC ORDERD
[2025-01-15] MEDS: albumin 25 G/100 ML BAG 60 G IV (05:23)
[2025-01-15 06:40] LABS: Lactic Acid level (Lactate) 2.6 mmol/L (0.5-2.2)
[2025-01-15] MEDS: piperacillin-tazobactam 3.375 GM in sodium chloride 0.9% (plus) 50 ML IV (06:58)
[2025-01-15] MEDS: morphine 4 mg/mL SDV 1 mL 2 MG IVP (07:52)
--- NOTE | 2025-01-15 08:02 | PC.NURSE ---
pt anxious with some dhort of breath noted stating heart rate too fast and i cant breath , hyperventilating according to him, heart rate 100 o2 sats 92 states uncomfortable all over , morphine given for discomfort
[2025-01-15 08:09] LABS: Alanine Aminotransferase 229 U/L (0-41); Albumin Level 5.4 g/dL (3.5-5.2); Alkaline Phosphatase 139 U/L (40-130); Anion Gap 19.4 (5-19); Aspartate Amino Transferase 105 U/L (0-40); Blood Urea Nitrogen 50 mg/dL (8-23); Calcium 10.0 mg/dL (8.5-10.5); Carbon Dioxide 32 mmol/L (22-29); Chloride 84 mmol/L (98-107); Globulin 1.4 g/dL (1.3-4.6); Glucose 133 mg/dL (65-115); Magnesium 2.1 mg/dL (1.7-2.3); Osmolality Calculated 289 mOsm/kg (285-295); Potassium 3.4 mmol/L (3.5-5.1); Sodium 132 mmol/L (136-145); Total Protein 6.8 g/dL (6.6-8.7)
[2025-01-15] MEDS: pantoprazole 40 mg SDV IVP ×2 (09:48→22:43)
[2025-01-15] MEDS: morphine 4 mg/mL SDV 1 mL IVP ×2 (11:04→14:45)
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
[2025-01-15] MEDS: LORazepam 2 mg/mL INJ 1 mL IVP (14:59)
--- NOTE | 2025-01-15 15:00 | PC.NURSE ---
called brother and informed of status related he will be here tommorrow to see him
--- NOTE | 2025-01-15 15:02 | PC.NURSE ---
anxious and restless removed all lines and blood pressure monitor ,,, i cant breath crawling out of bed morphine given and repositioned increased o2 , ativan given
--- NOTE | 2025-01-15 18:46 | PC.NURSE ---
lasix staggered asleep after ativan will give at later time if able
[2025-01-16] VITALS (17 sets, daily range): BP systolic 103–105; BP diastolic 67–70; PULSE 82–96; RESP 9–32; TEMP 36.1–37.1; O2SAT 83–100
[2025-01-16] MEDS: pantoprazole 40 mg SDV IVP ×2 (09:59→22:29)
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
--- NOTE | 2025-01-16 13:29 | PC.NURSE ---
Transfer to room 258: Patient transferred to room 258 via bed on 3L NC. All patient belongings at bedside in [facility] belongings bag. Family at bedside updated on plan of care and transfer to floor. Patient and family had no questions. Patient oriented to new room, call light use, and bed alarm set. Patient on 3L NC. Family directed to room. Paper chart left with staff at [facility].
[2025-01-16] MEDS: LORazepam 2 mg/mL INJ 1 mL IVP (20:35)
[2025-01-16] MEDS: metoclopramide 5 mg/mL SDV 2 mL IVP (20:36)
[2025-01-17] VITALS (8 sets, daily range): BP systolic 100–113; BP diastolic 65–76; PULSE 77–98; RESP 14–18; TEMP 36.3–36.8; O2SAT 94–98
[2025-01-17] MEDS: pantoprazole 40 mg SDV IVP ×2 (10:19→22:01)
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
--- NOTE | 2025-01-17 17:52 | PC.OT ---
OT tx attempted for pt/family education x2 today. Pt resting and family not present at each attempt. Will attempt again tomorrow.
[2025-01-18] MEDS: LORazepam 2 mg/mL INJ 1 mL IVP (06:30)
[2025-01-18 07:38] VITALS: BP 106/67; PULSE 93; RESP 22; TEMP 36.6; O2SAT 94
[2025-01-18 08:12] VITALS: RESP 22; O2SAT 94
[2025-01-18] MEDS: morphine 4 mg/mL SDV 1 mL IVP (08:12)
--- NOTE | 2025-01-18 10:39 | P.DS_ITS ---
Discharge Providers Date of Admission: 01/11/25 20:45 Date of Discharge: January 18, 2025 Attending Provider at Admission: Jaime Parra MD Attending Provider at Discharge: Jaime Parra MD Primary Care Provider: Mary Squires APRN Diagnoses at Discharge Discharge Diagnosis 1. Acute hypoxic respiratory failure: 2. Cardiogenic shock: 3. Ischemic cardiomyopathy: 4. Cardiorenal syndrome with renal failure: 5. Transaminitis: 6. Hyperkalemia: 7. Subclinical hypothyroidism: 8. Elevated lactic acid level: 9. Severe mitral regurgitation: 10. Dyslipidemia: 11. Acute renal insufficiency: 12. Hyperbilirubinemia: 13. Hx of CABG: Reason for Visit Reason for Visit: chest Pain Hospital Course Hospital Course Israel Shaw is a 79 year old male with a past medical history of ischemic cardiomyopathy, CAD, history of mitral valve regurgitation, dyslipidemia, history of CABG, who presents [facility] due to increased shortness of breath, increased lower extremity edema, chest pain. Currently patient is alert oriented x 3, follows all commands, he tells me that he lives with his brother, he tells that recently he has been increased shortness of breath, shortness of breath exertion, orthopnea, paroxysmal nocturnal dyspnea, increased lower extremity edema, with chest pain, substernal, nonradiating, associated with shortness of breath, he denies any abdominal pain, no right upper quadrant abdominal pain, no fevers, no chills, no cough, denies alcoholism, Patient was admitted to [facility] for acute hypoxic respiratory failure, cardiogenic shock, acute ischemic cardiomyopathy, SUMI, transaminitis, admitted to the ICU, medically managed with diuretic therapy, dobutamine drip. Patient's condition continued to clinically deteriorate with persistent acute encephalopathy, acute respiratory failure, cardiogenic shock, SUMI. Repeat echocardiogram showed EF of 15%, evidence of cardiorenal syndrome, refractory cardiogenic shock, and congestive hepatopathy. Due to acute persistent encephalopathy, patient did not have capacity to make decisions. After goals of care discussion with patient's brother/DPOA, decision was made to pursue hospice at [facility] facility. Patient will be discharged to [facility] on hosp[facility]. Physical Exam Const: COMMON NORMALS: no acute distress ORIENTATION/CONSCIOUSNESS: Yes awake, Yes oriented to person and Yes confused; not oriented to place and not oriented to time Resp: COMMON NORMALS: normal respiratory effort, No retractions, No use of accessory muscles and clear to auscultation bilaterally AUSCULTATION: clear to auscultation bilaterally Cardio: COMMON NORMALS: regular rate, regular rhythm, S1 normal heart sound present and S2 normal heart sound present RATE: regular rate RHYTHM: regular rhythm HEART SOUNDS: S1 normal heart sound present and S2 normal heart sound present GI: COMMON NORMALS: Normal to inspection, nondistended, normoactive bowel sounds present and non-tender Extremity: COMMON NORMALS: no pedal edema Neuro: SENSORIUM/ORIENTATION: Yes oriented to person, No oriented to place and No oriented to time Urinary Catheter Management: Rice: Cath Placed During This Visit: yes, but has since been removed by the nurse Reason for Continuing Indwelling Catheter: Decision to DC Catheter Urinary Catheter Date of Insertion: 01/12/25 Urinary Catheter Time of Insertion: 05:34 Date Urinary Catheter Removed: 01/12/25 Time Urinary Catheter Discontinued: 17:00 Rice Latex: Cath Placed During This Visit: yes Reason for Continuing Indwelling Catheter: Hospice/Comfort/Palliative Care Urinary Catheter Date of Insertion: 01/12/25 Urinary Catheter Time of Insertion: 17:10 Discharge Data Studies Completed and Pending Completed Studies During Hospitalization Category Date Time Status CT ang ches abdpel [id number] Stat Cat Scan 01/11/25 16:59 Completed CXRP [XR chest 1V portable [id number]] Routine Exams 01/12/25 11:23 Completed XR chest 1V portable [id number] Routine Exams 01/14/25 07:24 Completed XR chest 1V portable [id number] Stat Exams 01/11/25 16:16 Completed CV. echo complete* [id number] Stat Ultrasound 01/12/25 21:06 Completed US abdomen complete* [id number] Stat Ultrasound 01/12/25 21:06 Completed Radiology Impressions Chest/Abdomen/Pelvis CTA 01/11/25 16:59 IMPRESSION: 1. No aneurysm or dissection demonstrated of the thoracic aorta. 2. No pulmonary thromboembolism. 3. Bilateral pleural effusions, czhbi-ihphizb-jzxc-left. 4. Findings suggest central pulmonary venous congestion. 5. No lobar pneumonia. 6. No lung mass. 7. Reactive lymph nodes. No obvious adenopathy noted in the chest. 8. Cardiomegaly. Previous sternotomy. 9. Probable hemangioma L4 body. Comparison with any older abdominal CT exams would be helpful. No gross destructive bony process noted. 10. Hypodense lesions of kidneys incompletely evaluated on this exam. Favor cysts; nonemergent renal ultrasound may be helpful for further evaluation. 11. Some fluid in presacral space of uncertain significance. No gross ascites. 12. No abscess noted in the abdomen or pelvis. 13. Atherosclerotic changes. No aneurysm or dissection demonstrated of the abdominal aorta. 14. No acute thrombus noted in the abdomen or pelvis. 15. No adenopathy noted in the abdomen or pelvis. 16. Scattered diverticula sigmoid colon without confirmation of acute diverticulitis. Abdomen Ultrasound 01/12/25 21:06 Impression: 1. Abnormal gallbladder. Sludge filled gallbladder. No stones identified or shadowing. Top normal gallbladder wall size. On the recent CT there was no pericholecystic fluid. Changes in the gallbladder may be due to prolonged fasting state. 2. Normal common bile duct. 3. No intrahepatic duct dilatation. 4. Bilateral renal cysts with no renal obstruction. 5. Bilateral pleural effusions, RIGHT greater than LEFT, small to moderate. Chest X-Ray 01/14/25 07:24 IMPRESSION: 1. Chest x-ray unchanged since the last exam. Laboratory Results WBC 7.44 10^3/uL (3.29-11.43) 01/15/25 03:34 RBC 4.29 10^6/uL (3.85-5.65) 01/15/25 03:34 Hgb 12.60 g/dL (11.27-16.99) 01/15/25 03:34 Hct 38.2 % (37-53) 01/15/25 03:34 MCV 89.0 fl (82-101) 01/15/25 03:34 MCH 29.4 pg (27-33) 01/15/25 03:34 MCHC 33.0 g/dL (30-55) 01/15/25 03:34 RDW 15.5 % (12.1-15.1) H 01/15/25 03:34 Plt Count 102 10^3/cmm (157-399) L 01/15/25 03:34 MPV 11.1 fL (7.4-10.4) H 01/15/25 03:34 Neut % (Auto) 86.6 % 01/15/25 03:34 Lymph % (Auto) 5.1 % 01/15/25 03:34 [place] % (Auto) 7.7 % 01/15/25 03:34 Eos % (Auto) 0.1 % 01/15/25 03:34 Baso % (Auto) 0.0 % 01/15/25 03:34 Neut # (Auto) 6.44 10^3/uL (1.8-7.7) 01/15/25 03:34 Lymph # (Auto) 0.4 10^3/uL (0.8-4.8) L 01/15/25 03:34 [place] # (Auto) 0.6 10^3/uL (0.2-0.9) 01/15/25 03:34 Eos # (Auto) 0.0 10^3/uL (0.0-0.8) 01/15/25 03:34 Baso # (Auto) 0.0 10^3/uL (0.0-0.1) 01/15/25 03:34 Nucleated RBC % (auto) 0 % 01/15/25 03:34 Nucleated RBCs # 0.0 /100WBC 01/15/25 03:34 PT 19.80 SECONDS (12.1-14.9) H 01/11/25 22:57 INR 1.58 (0.8-1.2) H 01/11/25 22:57 APTT 59.4 SECONDS (23.9-36.7) H 01/14/25 08:57 Specimen Type Arterial 01/14/25 06:02 Sample Site Radial, right 01/14/25 06:02 ABG pH 7.53 (7.35-7.45) H 01/14/25 06:02 ABG pCO2 39.1 mmHg (35-45) 01/14/25 06:02 ABG pO2 76.2 mmHg (80.0-100.0) L 01/14/25 06:02 ABG PO2/FiO2 Ratio 238 01/11/25 17:00 ABG HCO3 32.7 mmol/L (22-26) H 01/14/25 06:02 ABG O2 Saturation 96.8 01/11/25 17:00 ABG Base Excess 9.2 mmol/L (-2.0-2.0) H 01/14/25 06:02 [place] Test Pos 01/14/25 06:02 A-a O2 Gradient 18.9 mmHg (5-10) H 01/11/25 17:00 Hematocrit 40.8 % (42-52) L 01/14/25 06:02 Hgb O2 Saturation 95.8 % (95-100) 01/11/25 17:00 Carboxyhemoglobin 1.1 %THgb (0.4-20.1) 01/11/25 17:00 Methemoglobin 0.0 % (0.4-1.5) L 01/11/25 17:00 Total Hemoglobin 16.3 g/dL (14-18) 01/11/25 17:00 Sodium 131.0 mmol/L (131-143) 01/11/25 17:00 Potassium 4.7 mmol/L (3.5-5.0) 01/11/25 17:00 Glucose 143.0 mg/dL (70-115) H 01/11/25 17:00 Ionized Calcium 1.2 mmol/L (1.1-1.4) 01/11/25 17:00 O2 Delivery Device Nc 01/14/25 06:02 O2 Liters/Min 3.0 % 01/14/25 06:02 FiO2 40.0 % 01/11/25 17:00 [employer]der [employer] Line Gas ID Jaylon 01/14/25 06:02 Sodium 132 mmol/L (136-145) L 01/15/25 07:37 Potassium 3.4 mmol/L (3.5-5.1) L 01/15/25 07:37 Chloride 84 mmol/L (98-107) L 01/15/25 07:37 Carbon Dioxide 32 mmol/L (22-29) H 01/15/25 07:37 Anion Gap 19.4 (5-19) H 01/15/25 07:37 BUN 50 mg/dL (8-23) H 01/15/25 07:37 Creatinine 2.8 mg/dL (0.7-1.2) H 01/15/25 07:37 GFR Calculation Not Reportable 01/15/25 07:37 Glucose 133 mg/dL (65-115) H 01/15/25 07:37 POC Glucose 83 mg/dL (70-110) 01/12/25 10:27 Estimat Average Glucose 117 01/11/25 16:24 Hemoglobin A1c 5.7 % (4.0-6.0) 01/11/25 16:24 Calculated Osmolality 289 mOsm/kg (285-295) 01/15/25 07:37 Lactic Acid 2.6 mmol/L (0.5-2.2) H 01/15/25 03:34 Lactic Acid (Sepsis) 2.6 mmol/L (0.5-2.2) H 01/15/25 06:07 Lactate 4.6 mmol/L (0.5-2.2) H* 01/12/25 12:27 Calcium 10.0 mg/dL (8.5-10.5) 01/15/25 07:37 Magnesium 2.1 mg/dL (1.7-2.3) 01/15/25 07:37 Iron 41 ug/dL (59-158) L 01/12/25 05:15 TIBC 227 mcg/dl 01/12/25 05:15 % Saturation 18.0 % (20-50) L 01/12/25 05:15 Unsat Iron Binding 186 ug/dL (112-347) 01/12/25 05:15 Total Bilirubin 3.8 mg/dL (0.15-1.2) H 01/15/25 07:37 Direct Bilirubin 1.94 mg/dL (0.00-0.30) H 01/11/25 18:03 Indirect Bilirubin 2.26 01/11/25 18:03 GGT 99 U/L (8-61) H 01/11/25 16:24 AST 105 U/L (0-40) H 01/15/25 07:37 ALT 229 U/L (0-41) H 01/15/25 07:37 Alkaline Phosphatase 139 U/L (40-130) H 01/15/25 07:37 Troponin T Baseline 65 ng/L (0-15) H 01/11/25 16:24 Troponin T 120 Minute 58.29 ng/L (0-15) H 01/11/25 18:03 Delta Troponin T -6.71 ABS# (0-10) L 01/11/25 18:03 Troponin T Hi Sens 6Hr 73.61 ng/L (0-15) H 01/11/25 22:57 Troponin T Hi Sens 6Hr Delta 8.61 ng/L (0-12) 01/11/25 22:57 C-Reactive Protein 19.5 mg/L (0.0-4.9) H 01/11/25 16:24 NT-Pro-B Natriuret Pep 83829 pg/mL (0-450) H 01/12/25 05:15 Total Protein 6.8 g/dL (6.6-8.7) 01/15/25 07:37 Albumin 5.4 g/dL (3.5-5.2) H 01/15/25 07:37 Globulin 1.4 g/dL (1.3-4.6) 01/15/25 07:37 Triglycerides 80 mg/dL (0-150) 01/11/25 18:03 Cholesterol 101 mg/dL (0-200) 01/11/25 18:03 LDL Cholesterol, Calc 63 mg/dL (50-129) 01/11/25 18:03 HDL Cholesterol 22 mg/dL (60-100) L 01/11/25 18:03 LDL/HDL Ratio 2.86 RATIO (0.00-3.22) 01/11/25 18:03 Cholesterol/HDL Ratio 4.59 mg/dL (1.0-5.00) 01/11/25 18:03 Lipase 37 U/L (13-60) 01/11/25 16:24 Vitamin B12 1104 pg/mL (232-1245) 01/12/25 05:15 Folate 5.6 ng/mL (4.5-32.2) 01/13/25 04:22 Procalcitonin 0.16 ng/mL (0-0.5) 01/12/25 05:15 TSH 11.29 uIU/mL (0.27-4.20) H 01/11/25 18:03 Free T4 1.66 ng/dL (0.82-1.77) 01/12/25 05:15 Free T3 1.8 PG/ML (2.0-4.4) L 01/12/25 05:15 Urine Color Dark yellow (Yellow) A 01/12/25 00:00 Urine Appearance Clear (CLEAR) 01/12/25 00:00 Urine pH 5.0 (5-7) 01/12/25 00:00 Ur Specific [place] 1.053 (1.005-1.030) H 01/12/25 00:00 Urine Protein 2+ (Negative) A 01/12/25 00:00 Urine Glucose (UA) Negative (Normal) 01/12/25 00:00 Urine Ketones Negative (Negative) 01/12/25 00:00 Urine Blood Negative (Negative) 01/12/25 00:00 Urine Nitrate Negative (Negative) 01/12/25 00:00 Urine Bilirubin 1+ (Negative) H 01/12/25 00:00 Urine Urobilinogen 1.0 mg/dL (Negative) 01/12/25 00:00 Ur Leukocyte Esterase Negative (Negative) 01/12/25 00:00 Urine RBC 3-5 /hpf (0-2) 01/12/25 00:00 Urine WBC 0-5 /hpf (0-5) 01/12/25 00:00 Ur Squamous Epith Cells 0-5 /hpf (0-5) 01/12/25 00:00 Amorphous Sediment Not Reportable 01/12/25 00:00 Urine Bacteria None seen /hpf (NONE) 01/12/25 00:00 Hyaline Casts 61.62 /lpf 01/12/25 00:00 Nasal MRSA (PCR) Not detected (Negative) 01/12/25 13:04 Vancomycin Trough 14.6 ug/mL (10-15) 01/13/25 01:54 C. difficile (PCR) Negative (Negative) 01/13/25 15:06 Vitals Last Vital Signs Temp 98 F 01/18/25 07:38 Pulse 93 01/18/25 07:38 Resp 22 H 01/18/25 08:12 BP 106/67 01/18/25 07:38 Pulse Ox 94 01/18/25 08:12 O2 Del Method Nasal Cannula 01/18/25 07:38 O2 Flow Rate 3 01/16/25 04:00 FiO2 40 01/14/25 01:25 Discharge Plan Discharge Patient Disposition: Hospice - Medical Facility Condition: Stable Prescriptions: New furosemide 40 mg Tablet 40 mg PO BID 30 Days Qty: 60 0RF aspirin 81 mg Tablet,Delayed Release (Dr/Ec) 81 mg PO DAILY 30 Days Qty: 30 0RF levothyroxine 25 mcg Tablet 25 mcg PO QAM 30 Days Qty: 30 0RF potassium chloride [Klor-Con M20] 20 mEq Tablet,Er Particles/Crystals 20 meq PO BID 30 Days Qty: 60 0RF Continued acetaminophen [Tylenol Extra Strength] 500 mg tablet 1,000 mg PO QID PRN (Reason: Pain) rosuvastatin 40 mg tablet 40 mg PO DAILY Qty: 90 3RF clopidogrel 75 mg tablet 75 mg PO DAILY (DME) Orthopedic shoes with custom orthotics with castro's extension to the left See Rx Instructions .Route .MEDSUPPLY Qty: 2 0RF Rx Instructions: As directed (DME) compression socks See Rx Instructions .Route .MEDSUPPLY Qty: 6 0RF Rx Instructions: As directed calf 35cm ankle 23 cm overall length 60 cm nitroglycerin [Nitrostat] 0.4 mg tablet, sublingual 0.4 mg sublingual Q5M PRN (Reason: chest pain) Qty: 50 2RF Rx Instructions: do not exceed 3 doses per episode spironolactone 25 mg tablet 25 mg PO DAILY Qty: 90 3RF morphine concentrate 100 mg/5 mL (20 mg/mL) solution 20 mg sublingual DIRECTED PRN (Reason: Pain/SOB) 14 Days Qty: 30 0RF Rx Instructions: 0.25ml-1ml q1H PRN may increase to 0.5ml-1ml Q1H PRN bisacodyl 10 mg suppository 10 mg MN DAILY PRN (Reason: constipation) Qty: 5 0RF Rx Instructions: 1 suppository per rectum every day PRN for constipation. diphenhydramine HCl 25 mg tablet 25 mg PO Q4H Qty: 5 0RF Rx Instructions: Take one tablet by mouth every 4 hours as needed for allergic reaction including: Rash and/or Itching atropine 1 % drops 4 drp sublingual Q4H PRN (Reason: secretions) Qty: 5 0RF Rx Instructions: 4 drops SL q 4 hours PRN for terminal congestion/excessive secretions. ondansetron 4 mg tablet,disintegrating 4 mg translingual Q4H PRN (Reason: nausea) Qty: 5 0RF Rx Instructions: Dissolve 1 tablet under tongue every 4 hours PRN for nausea lorazepam 2 mg/mL concentrate 2 mg sublingual Q4H PRN (Reason: Anxiety/Seizure) Qty: 30 0RF Rx Instructions: 0.25ml-1ml q4H PRN Anxiety/Seizure Start 0.25ml may increase to 0.5ml-1ml q4H Jardiance 10 mg tablet 10 mg PO DAILY Qty: 30 5RF Discontinued Entresto 97-103 mg tablet 1 tab PO BID Qty: 180 3RF hydroxyzine HCl 25 mg tablet 25 mg PO TID PRN (Reason: Itching) Qty: 5 0RF Rx Instructions: Take 1 table by mouth as needed three times a day for itching Tremfya Pen 100 mg/mL Pen Injector 100 mg SUBCUT .[id number] Discharge Order = DC NOW: Discharge Order (Routine); Ordered 01/18/25 Ordered By: Jaime Parra Referrals: [facility] [Outside] [facility] ([facility]) [Outside] Mary Squires APRN [Primary Care Provider, Family Practice] Lorene Hernandez FNP [Nurse Practitioner, Cardiology] - 02/09/25 8:30 am Discharge Diet: Regular Discharge Activity: Resume usual activity Patient Instructions: Furosemide (By mouth), Levothyroxine (By mouth), Opioid Safety, Patient Portal & Mateo Instructions Discharge Attestations Time Spent in Discharge Care*: greater than 30 min Quality Metrics Clinical Quality Measures [ No reported AMI, CVA or VTE this stay] Coding Level of Care Code 19384 Total time (in minutes) for Discharge: 45 Diagnoses Acute hypoxic respiratory failure J96.01 Cardiogenic shock R57.0 Ischemic cardiomyopathy I25.5 Cardiorenal syndrome with renal failure I13.10 Transaminitis R74.01 Hyperkalemia E87.5 Subclinical hypothyroidism E03.8 Elevated lactic acid level R79.89 Severe mitral regurgitation I34.0 Dyslipidemia E78.5 Acute renal insufficiency N28.9 Hyperbilirubinemia E80.6 Hx of CABG Z95.1
[2025-01-18 11:21] VITALS: BP 101/74; PULSE 78; RESP 16; TEMP 36.7; O2SAT 91
== END 2025-01-18 13:09 | disposition hospice, inpatient (51) | DRG 280 ==
LOC: ER 21:16 → ICU 21:17 → MEDSURG 01-16 13:26
PROVIDERS: Nurse Practitioner Family; Student in an Organized Health Care Education/Training Program; Admitting Provider Family Medicine; Emergency Provider Emergency Medicine; PCP Nurse Practitioner Family; Visit Provider Family Medicine
DX: I13.0 Hypertensive heart and chronic kidney disease with heart failure and stage 1 through stage 4 chronic kidney disease, or unspecified chronic kidney disease (principal); I50.23 Acute on chronic systolic (congestive) heart failure; I21.4 Non-ST elevation (NSTEMI) myocardial infarction; J96.01 Acute respiratory failure with hypoxia; R57.0 Cardiogenic shock; N17.9 Acute kidney failure, unspecified; E03.8 Other specified hypothyroidism; R74.01 Elevation of levels of liver transaminase levels; I25.5 Ischemic cardiomyopathy; I44.0 Atrioventricular block, first degree; N18.9 Chronic kidney disease, unspecified; R00.0 Tachycardia, unspecified; I34.0 Nonrheumatic mitral (valve) insufficiency; E78.5 Hyperlipidemia, unspecified; E80.6 Other disorders of bilirubin metabolism; I25.10 Atherosclerotic heart disease of native coronary artery without angina pectoris; Z79.02 Long term (current) use of antithrombotics/antiplatelets; Z79.899 Other long term (current) drug therapy; Z95.1 Presence of aortocoronary bypass graft; Z87.891 Personal history of nicotine dependence; Z95.810 Presence of automatic (implantable) cardiac defibrillator
CPT/HCPCS: 36415; 36416; 36573; 36592; 36600; 51702; 71045; 71275; 74174; 76700; 80048; 80051; 80053; 80061; 80202; 81001; 82247; 82248; 82330; 82607; 82746; 82803; 82805; 82962; 82977; 83036; 83540; 83550; 83605; 83690; 83735; 83880; 84145; 84439; 84443; 84481; 84484; 85025; 85610; 85730; 86140; 87040; 87493; 92523; 92526; 92610; 93005; 93306; 94660; 94664; 96374; 96375; 97110; 97161; 97167; 97535; 99285; C1751; J1250; J1644; J1815; J1938; J2060; J2270; J2405; J2470; J2543; J2765; J3372; J3480; J7799; J9999; P9046